=== PATIENT | male | born 1975 | race Hispanic/Latino ===

== ENCOUNTER 2017-04-19 19:27 | Inpatient (IN) | payer OTHER ==
[2017-04-19] MEDS ORDERED: Sodium Chloride 0.9% 500 ML IV STA (19:57)
[2017-04-19] MEDS ORDERED: Sodium Chloride 0.9% 1,000 ML IV SCH (20:00)
[2017-04-19] MEDS ORDERED: Insulin Regular 1 UNITS/0.01 ML ML IVP STA (20:26)
[2017-04-19 20:39] LABS: MEAN CELL VOLUME 95.9 fl (80.0-105.0); MEAN CORPUSCULAR HEMOGLOBIN 30.5 pg (25.0-35.0); MEAN CORPUSCULAR HGB CONC 31.8 g/dl (31.0-37.0); MEAN PLATELET VOLUME 9.4 fl (7.0-11.0); RBC 2.2 10^6/uL (3.5-6.1); RED CELL DISTRIBUTION WIDTH 13.6 % (11.5-14.5); WHITE BLOOD COUNT 9.7 10^3/ul (4.5-11.0)
[2017-04-19 20:43] LABS: VENOUS BLOOD GAS BASE EXCESS -23.8 mmol/L (0.0-2.0); VENOUS BLOOD GAS PO2 65 mm/Hg (30-55)
[2017-04-19 20:47] LABS: VENOUS BLOOD PH 7.03 (7.32-7.43)
[2017-04-19 20:50] LABS: HEMOGLOBIN 6.7 g/dL (14.0-18.0)
[2017-04-19 21:01] LABS: PROTHROMBIN TIME 11.9 SECONDS (9.4-12.5)
[2017-04-19 21:02] LABS: INR 1.04 (0.93-1.08)
[2017-04-19 21:03] LABS: TROPONIN I < 0.01 ng/mL
[2017-04-19 21:13] LABS: ALB/GLOB RATIO 1.1 (1.1-1.8); ALBUMIN 2.6 g/dL (3.0-4.8); ALT/SGPT 21 U/L (7-56); AST/SGOT 18 U/L (17-59); BLOOD UREA NITROGEN 61 mg/dL (7-21); CALCIUM 9.2 mg/dL (8.4-10.5); GFR AFRICAN-AMERICAN 47; GFR NON-AFRICAN AMERICAN 39; MAGNESIUM 2.5 mg/dL (1.7-2.2)
--- NOTE | 2017-04-19 21:22 | ED PDOC ---
Arrival/HPI - General Chief Complaint: High Blood Sugar Time Seen by Provider: 04/19/17 19:35 Historian: Patient - History of Present Illness Narrative History of Present Illness (Text): 04/19/17 19:58 Jhony Apodaca is a 41 year old male, whose past medical history includes IDDM, alcohol abuse, and GI bleed, who presents to the ED complaining of generalized weakness and dry mouth. Patient was recently discharged from [facility] following treatment for hyperglycemia and possible GI bleed. Patient also reports associated shortness of breath. Patient denies any chest pain, fever, chills, abdominal pain, nausea, vomiting, diarrhea, or any other complaints. Symptom Onset: Gradual Symptom Course: Unchanged Activities at Onset: Light Context: Home Past Medical History - Provider Review Nursing Documentation Reviewed: Yes - Cardiac Hx Cardiac Disorders: No - Pulmonary Hx Respiratory Disorders: No - Neurological Hx Neurological Disorder: No - HEENT Hx HEENT Disorder: No - Renal Hx Renal Disorder: No - Endocrine/Metabolic Hx Diabetes Mellitus Type 2: Yes - Hematological/Oncological Hx Anemia: Yes - Integumentary Hx Dermatological Disorder: No - Musculoskeletal/Rheumatological Hx Musculoskeletal Disorders: No - Gastrointestinal Other/Comment: abnormal liver testing - Genitourinary/Gynecological Hx Genitourinary Disorders: No - Psychiatric Hx Psychophysiologic Disorder: No Hx Substance Use: No - Anesthesia Hx Anesthesia: Yes Family/Social History - Physician Review Nursing Documentation Reviewed: Yes Family/Social History: Unknown Family HX Smoking Status: Never Smoked Hx Alcohol Use: No Hx Substance Use: No Allergies/Home Meds Allergies/Adverse Reactions: Allergies No Known Allergies Allergy (Verified 04/19/17 19:42) Home Medications: Home Meds Medication Instructions Recorded Confirmed Atorvastatin [Lipitor] 40 mg PO HS 04/19/17 04/19/17 Fluconazole [Diflucan] 100 mg PO DAILY 04/19/17 04/19/17 Insulin Lispro [Humalog (Insulin 0 unit SQ DAILY 04/19/17 04/19/17 Lispro)] Latanoprost 0.005% Opht [XALATAN 1 drp OP HS 04/19/17 04/19/17 2.5 Ml] amLODIPine [Norvasc] 10 mg PO DAILY 04/19/17 04/19/17 Review of Systems - Physician Review All systems were reviewed & negative as marked: Yes - Review of Systems Constitutional: Other (+generalized weakness). absent: Fevers Eyes: Normal ENT: Normal Respiratory: SOB. absent: Cough Cardiovascular: Normal. absent: Chest Pain Gastrointestinal: Normal. absent: Abdominal Pain, Diarrhea, Nausea, Vomiting Genitourinary Male: Normal. absent: Dysuria, Frequency, Hematuria, Urinary Output Changes Musculoskeletal: Normal. absent: Back Pain, Neck Pain Skin: Normal. absent: Rash Neurological: Normal. absent: Headache, Dizziness Endocrine: Other (+dry mouth) Hemo/Lymphatic: Normal Psychiatric: Normal Physical Exam Vital Signs Reviewed: Yes Vital Signs Temp Pulse Resp BP Pulse Ox 04/19/17 23:41 98 F 110 H 27 H 119/60 04/19/17 23:30 114 H 24 99/58 L 100 04/19/17 23:23 111 H 20 111/60 100 04/19/17 23:21 116 H 21 111/60 100 04/19/17 23:15 117 H 22 93/57 L 100 04/19/17 23:00 121 H 20 103/64 100 04/19/17 22:56 97.3 F L 119 H 20 107/61 04/19/17 22:55 119 H 19 107/61 100 04/19/17 22:45 116 H 19 109/63 100 04/19/17 22:36 96.1 F L 116 H 20 105/28 L 04/19/17 22:30 118 H 22 105/28 L 100 04/19/17 22:15 118 H 20 100/78 100 04/19/17 22:00 115 H 22 112/76 100 04/19/17 21:45 115 H 23 118/79 100 04/19/17 19:46 97.4 F L 110 H 20 90/52 L 100 04/19/17 19:42 97.4 F L 110 H 20 90/52 L 100 Temperature: Afebrile Blood Pressure: Hypotensive Pulse: Tachycardic Respiratory Rate: Normal Appearance: Positive for: Non-Toxic, Comfortable, Cachectic (Emaciated), Other ( Pale-appearing) Pain Distress: None Mental Status: Positive for: Alert and Oriented X 3 Finger Stick Blood Glucose: 750 - Systems Exam Head: Present: Atraumatic, Normocephalic Pupils: Present: PERRL Extroacular Muscles: Present: EOMI Conjunctiva: Present: Other (Pale conjunctiva) Mouth: Present: Dry Neck: Present: Normal Range of Motion. No: Meningeal Signs, MIDLINE TENDERNESS , Paraspinal Tenderness Respiratory/Chest: Present: Clear to Auscultation, Good Air Exchange. No: Respiratory Distress, Accessory Muscle Use Cardiovascular: Present: Normal S1, S2, Tachycardic. No: Murmurs Abdomen: Present: Normal Bowel Sounds. No: Tenderness, Distention, Peritoneal Signs Rectal: Present: Other (Pt refused rectal exam) Back: Present: Normal Inspection. No: CVA Tenderness, Midline Tenderness, Paraspinal Tenderness Upper Extremity: Present: Normal Inspection. No: Cyanosis, Edema Lower Extremity: Present: Normal Inspection. No: Edema Neurological: Present: GCS=15, CN II-XII Intact, Speech Normal Skin: Present: Warm, Dry, Pale. No: Rashes Psychiatric: Present: Alert, Oriented x 3, Normal Insight, Normal Concentration Medical Decision Making ED Course and Treatment: 04/19/17 19:58 Impression: 41 year old male complaining of generalized weakness, dry mouth, and shortness of breath. Differential Diagnosis included but are not limited to: DKA vs. GI bleed vs. occult cancer Plan: -- EKG -- CXR -- Labs, cardiac enzymes, VBG -- IV fluids -- Reassess and disposition Prior Visits: Notes and results from previous visits were reviewed. Progress Notes: Pt symptoms consistent with DKA. Labs noted, pt with elevated blood sugar, acidotic. IV insulin drip started. Pt also noted t be anemic. Pt blood type, cross, and matched for anticipated transfusion. 04/19/17 20:35 Reviewed EKG, sinus tachycardia at 106 bpm. Non-specific ST/T wave changes. 04/19/17 21:27 Pt refused rectal exam. 04/19/17 21:[address] Vernon, fabrication welder, who is aware and agrees with plan. Pt will be admitted to ICU for DKA and anemia under the hospitalist service. - Critical Care Critical Care Minutes: 30 minutes - Lab Interpretations Lab Results: 04/19/17 20:30 04/19/17 20:30 Lab Results 04/19/17 20:48: Blood Type Confirm O NEGATIVE 04/19/17 20:30: pO2 65 H, VBG pH 7.03 L*, VBG pCO2 21.0 L, VBG HCO3 5.5 L, VBG Total CO2 6.1 L, VBG O2 Sat (Calc) 92.8 H, VBG Base Excess -23.8 L, VBG Potassium 6.2 H*, Sodium 126.0 L, Chloride 87.0 L, Glucose > 750 H*, Lactate 4.0 H*, FiO2 21.0, Venous Blood Potassium 6.2 H* 04/19/17 20:30: WBC 9.7, RBC 2.20 L, Hgb 6.7 L*, Hct 21.1 L, MCV 95.9, MCH 30.5 , MCHC 31.8, RDW 13.6, Plt Count 549 H, MPV 9.4 04/19/17 20:30: Sodium 127 L, Chloride 87 L, Potassium 6.1 H*, Carbon Dioxide 8 L, Anion Gap 38 H, BUN 61 H, Creatinine 1.9 H, Est GFR ( Amer) 47, Est GFR (Non-Af Amer) 39, Random Glucose 936 H*, Calcium 9.2, Phosphorus 7.9 H, Magnesium 2.5 H, Total Bilirubin 0.2, AST 18, ALT 21, Alkaline Phosphatase 96, Lactate Dehydrogenase 301 L, Total Creatine Kinase 38, Troponin I < 0.01, Total Protein 5.0 L, Albumin 2.6 L, Globulin 2.4, Albumin/Globulin Ratio 1.1 04/19/17 20:30: PT 11.9, INR 1.04, APTT 27.0 04/19/17 20:24: Blood Type O NEGATIVE, Antibody Screen Negative, Crossmatch See Detail, BBK History Checked No verified bt I have reviewed the lab results: Yes - RAD Interpretation Radiology Orders: 04/19/17 19:58 CHEST PORTABLE [RAD] Stat - EKG Interpretation Interpreted by ED Physician: Yes Type: 12 lead EKG - Medication Orders Current Medication Orders: Acetaminophen (Tylenol 325 Mg Supp) 325 mg RC Q6 PRN PRN Reason: Fever >100.4 F Insulin Human Regular 100 (units/ Sodium Chloride) 100 mls @ 10 mls/hr IV .Q10H PRN; Protocol; 10 UNITS/HR PRN Reason: TITRATE PER MD ORDER Last Titration: 04/20/17 00:25 Dose: 12 units/hr, 12 mls/hr Titration Intervention Document 04/20/17 00:25 FM (Rec: 04/20/17 00:25 FM [id number]-PC) Titration Intake Container Volume 70 Titration Dosing Titration Dose 12 IV Rate 12 Intake/Decrease Started Sodium Chloride (Sodium Chloride 0.9%) 1,000 mls @ 150 mls/hr IV .Q6H40M [facility] Last Admin: 04/19/17 22:24 Dose: 150 mls/hr eMAR Start Stop Document 04/19/17 22:24 HI (Rec: 04/19/17 22:24 HI [id number]) Intravenous Solution Start Date 04/19/17 Start Time 22:24 Pantoprazole Sodium (Protonix 40mg Ivpb) 40 mg in 100 mls @ 20 mls/hr IVPB .Q5H [facility] Last Admin: 04/20/17 01:17 Dose: 20 mls/hr eMAR Start Stop Document 04/20/17 01:17 FM (Rec: 04/20/17 01:17 FM ADMIN-PC) Intravenous Solution Start Date 04/20/17 Start Time 01:17 End Date 04/20/17 Ceftriaxone Sodium (Rocephin 2 Gm Ivpb) 2 gm in 100 mls @ 100 mls/hr IVPB DAILY GABI PRN Reason: Protocol Ondansetron HCl (Zofran Inj) 4 mg IVP Q4H PRN PRN Reason: Nausea/Vomiting Discontinued Medications Lactated Ringer's 2,177.25 ml/ (IV SUPPLIES) 2,177.25 mls @ 4,354.5 mls/hr IV STAT STA PRN Reason: 60 ML/KG/HR Stop: 04/19/17 20:19 Last Admin: 04/19/17 21:02 Dose: 4,354.5 mls/hr eMAR Start Stop Document 04/19/17 21:02 HI (Rec: 04/19/17 21:02 HI [id number]) Intravenous Solution Start Date 04/19/17 Start Time 20:30 Insulin Human Regular (Humulin R) 10 units IVP STAT STA Stop: 04/19/17 20:27 Last Admin: 04/19/17 21:02 Dose: 10 units MAR Blood Glucose Document 04/19/17 21:02 HI (Rec: 04/19/17 21:02 HI [id number]) Blood Glucose Finger Stick Blood Glucose (70-120) 750 IVP Administration Document 04/19/17 21:02 HI (Rec: 04/19/17 21:02 HI [id number]) Charges for Administration # of IVP Administrations 1 Pantoprazole Sodium (Protonix Inj) 40 mg IVP ONCE STA Stop: 04/19/17 22:00 Last Admin: 04/19/17 22:27 Dose: 40 mg IVP Administration Document 04/19/17 22:27 HI (Rec: 04/19/17 22:27 HI [id number]) Charges for Administration # of IVP Administrations 1 - Scribe Statement The provider has reviewed the documentation as recorded by the Scribe Frances Palma All medical record entries made by the Scribe were at my direction and personally dictated by me. I have reviewed the chart and agree that the record accurately reflects my personal performance of the history, physical exam, medical decision making, and the department course for this patient. I have also personally directed, reviewed, and agree with the discharge instructions and disposition. Disposition/Present on Arrival - Present on Arrival Any Indicators Present on Arrival: No History of DVT/PE: No History of Uncontrolled Diabetes: No Urinary Catheter: No History of Decub. Ulcer: No History Surgical Site Infection Following: None - Disposition Have Diagnosis and Disposition been Completed?: Yes Diagnosis: Diabetic ketoacidosis, Anemia Disposition: HOSPITALIZED Disposition Time: 21:59 Patient Plan: Admission Patient Problems: Current Active Problems Problem Status Onset Anemia Acute Diabetic ketoacidosis Acute Condition: GUARDED
[2017-04-19] MEDS: Insulin Regular 100 UNITS in Sodium Chloride 0.9% 99 ML IV PRN (21:30)
[2017-04-19] MEDS: Sodium Chloride 0.9% 1,000 ML IV SCH (22:24)
--- NOTE | 2017-04-20 00:41 | CP.PCM.HP ---
<Adebayo Riggins - Last Filed: 04/20/17 00:47> History of Present Illness - History of Present Illness History of Present Illness: Melchor Riggins PGY1 H&P CC: weakness and n/v HPI: Patient is a 41 year old male with past medical history of DM1, previous episodes of DKA, HTN, HLD, gastritis, recent dx of osteomyelitis and GI bleed who presents to ED via ambulance complaining of general weakness, fatigue, nausea, vomiting. Patient reports that over past 12 hours began experiencing nausea and vomiting. Patient describes vomiting/coughing up dark coffee ground like material. Of note patient was recently discharged from [facility] after being treated for DKA, osteomyelitis, gastritis and GI bleed. While at [facility] patient had PICC line placed for OM of right foot and started on rocephin. Patient also reports having upper endoscopy showing mass? and striations or markings in the esophagus. Patient denies further workup. Patient denies sick contacts, denies fever, chest pain, shortness of breath, abdominal pain, numbness, weakness. Patient reports poor oral intake since discharge from [facility] on 04/15. Patient reports compliance with insulin regiment and medications since discharge. Of note patient indicates constipation for past 10 days with recent bowel movement in past 24 hours described as black stool. PMH: DM1, DKA, HTN, HLD, Glaucoma, Gastritis, OM, GI bleed PSH: Toe amputation, appendectomy FMH: Father @ 43 due to [place], Brother - stroke Sochx: Tobacco: Former, 20 pack year history, ETOH: Daily, ID: Cocaine, denies IVDA hx PMD: None ALL: NKDA Meds: MAR reviewed Present on Admission - Present on Admission Any Indicators Present on Admission: No Review of Systems - Review of Systems Review of Systems: as mentioned in HPI Past Patient History - Past Social History Smoking Status: Former Smoker (20 pack year history) Alcohol: Occasional Drugs: Cocaine - CARDIAC Hx Cardiac Disorders: No - PULMONARY Hx Respiratory Disorders: No - NEUROLOGICAL Hx Neurological Disorder: No - HEENT Hx HEENT Problems: No - RENAL Hx Chronic Kidney Disease: No - ENDOCRINE/METABOLIC Hx Diabetes Mellitus Type 2: Yes - HEMATOLOGICAL/ONCOLOGICAL Hx Anemia: Yes - INTEGUMENTARY Hx Dermatological Problems: No - MUSCULOSKELETAL/RHEUMATOLOGICAL Hx Musculoskeletal Disorders: No - GASTROINTESTINAL Other/Comment: abnormal liver testing - GENITOURINARY/GYNECOLOGICAL Hx Genitourinary Disorders: No - PSYCHIATRIC Hx Psychophysiologic Disorder: No Hx Substance Use: No - SURGICAL HISTORY Hx Surgeries: Yes - ANESTHESIA Hx Anesthesia: Yes Meds Allergies/Adverse Reactions: Allergies Allergy/AdvReac Type Severity Reaction Status Date / Time No Known Allergies Allergy Verified 04/19/17 19:42 Physical Exam - Constitutional Additional comments: Appears older than stated age, no acute distress, curled up laying in bed - Head Exam Head Exam: ATRAUMATIC, NORMAL INSPECTION, NORMOCEPHALIC - Eye Exam Eye Exam: EOMI, PERRL, Scleral icterus (mild) Additional comments: pale conjunctivae - ENT Exam ENT Exam: Mucous Membranes Dry - Respiratory Exam Respiratory Exam: Clear to Auscultation Bilateral, NORMAL BREATHING PATTERN. absent: Rhonchi, Wheezes - Cardiovascular Exam Cardiovascular Exam: Tachycardia, +S1, +S2. absent: Rubs, Systolic Murmur - GI/Abdominal Exam GI & Abdominal Exam: Normal Bowel Sounds, Soft. absent: Distended, Firm, Guarding - Rectal Exam Rectal Exam: Deferred - Extremities Exam Extremities exam: Positive for: normal inspection, pedal pulses present. Negative for: pedal edema Additional comments: right lateral foot with 1 x 1.5 cm wound, no purulent drainage, no warmth or eythema surrounding wound noted - Back Exam Back exam: NORMAL INSPECTION. absent: CVA tenderness (L), CVA tenderness (R) - Neurological Exam Neurological exam: Alert, Oriented x3 Additional comments: able to follow simple commands, able to move all extremities past midline, motor and sensory grossly intact - Psychiatric Exam Psychiatric exam: Normal Affect, Normal Mood - Skin Skin Exam: Dry, Intact, Warm Results - Vital Signs Recent Vital Signs: Last Vital Signs Temp 98 F 04/19/17 23:41 Pulse 110 H 04/19/17 23:41 Resp 27 H 04/19/17 23:41 BP 119/60 04/19/17 23:41 Pulse Ox 100 04/19/17 23:30 - Labs Result Diagrams: 04/19/17 20:30 04/19/17 20:30 Labs: Laboratory Results - last 24 hr 04/19/17 04/19/17 04/20/17 21:28 23:06 00:14 POC Glucose (mg/dL) > 500 H* > 500 H* 491 H* Assessment & Plan - Assessment and Plan (Free Text) Assessment: 41 year old male with past medical history of DM1, previous episodes of DKA, HTN , HLD, gastritis, recent dx of osteomyelitis and GI bleed who presents via ambulance to ED complaining of fatigue, weakness, nausea found to be in DKA withe elevated AG of 32 and severe anemia likely secondary to upper GI bleed suspected to be secondary to GI mass. Patient is placed on insulin and protonix gtt and receiving blood transfusion and will be admitted to ICU for further medical management. Plan: Neuro AAOx3 Continue to monitor Cardiac Tachycardia - Likely 2/2 severe anemia vs. volume depletion vs. response to DKA vs. infectious - EKG showing sinus tachycardia - Continue to monitor - IVF - Transfusion 1 unit pRBC for total of 2 units - CBC in AM Pulm - Stable - NC goal O2 >92% GI Hx of GI mass?, suspect upper GI bleed source - recent hx of [facility] admission with endoscopy showing gastric mass, request records - GI consult, appreciate recs - Protonix gtt - transfuse 1 unit pRBC - monitor H/H FOBT Zofran 4mg Prn NPO Renal Hyperkalemia - likely 2/2 DKA - IVF resucitation Hypovolemic Hyponatremia - IVF NS @150 mL/HR Monitor lytes Replace as necessary Strict I/O Endo DKA - DM1, AG of 32 - NPO, IVF - insulin gtt, titrate - BMP Q4H evaluate AG ID Hx of Osteomyelitis - Continue rocephin 2gm Q24H - ID consult, appreciate recs - Plain marielena Right foot evaluate OM UA Blood and urine culture MSK amputation of toe Right heel OM wound - bandage in place with minimal blood - absent signs of infection Heme Monitor H/H Transfuse 1 unit of pRBC for total of 2 units DVT ppx: SCD due to suspected GI bleed GI ppx: Protonix gtt Case and plan discussed and reviewed with attending - Date & Time Date: 04/19/17 Time: 23:15 <Doug Vernon - Last Filed: 04/20/17 05:41> Results - Vital Signs Recent Vital Signs: Last Vital Signs Temp 98.4 F 04/20/17 04:10 Pulse 98 H 04/20/17 04:10 Resp 16 04/20/17 04:10 BP 104/50 L 04/20/17 04:10 Pulse Ox 100 04/20/17 03:00 - Labs Result Diagrams: 04/19/17 20:30 04/20/17 00:35 Labs: Laboratory Results - last 24 hr 04/19/17 04/19/17 04/20/17 21:28 23:06 00:14 Sodium Potassium Chloride Carbon Dioxide Anion Gap BUN Creatinine Est GFR ( Amer) Est GFR (Non-Af Amer) POC Glucose (mg/dL) > 500 H* > 500 H* 491 H* Random Glucose Calcium 04/20/17 04/20/17 04/20/17 00:35 01:05 02:20 Sodium 132 Potassium 4.8 Chloride 98 Carbon Dioxide 10 L D Anion Gap 29 H BUN 65 H Creatinine 1.5 Est GFR ( Amer) > 60 Est GFR (Non-Af Amer) 51 POC Glucose (mg/dL) 390 H 391 H Random Glucose 620 H* D Calcium 8.6 04/20/17 04/20/17 04/20/17 03:04 04:21 05:16 Sodium Potassium Chloride Carbon Dioxide Anion Gap BUN Creatinine Est GFR ( Amer) Est GFR (Non-Af Amer) POC Glucose (mg/dL) 352 H 295 H 247 H Random Glucose Calcium Attending/Attestation - Attestation I have personally seen and examined this patient.: Yes I have fully participated in the care of the patient.: Yes I have reviewed all pertinent clinical information: Yes Notes (Text): 04/20/17 05:41 I agree with the above mentioned note and exam by the resident with the addition /exception of the followin41 y/o male with a PMHx IDDM, Anemia, UGIB, LE osteomyelitis with h/o 5th metatarsal amputation 09/2016, Etoh abuse presents to the ED with the complaints of lethargy and fatigue for the past few days. Patient was recently hospitalized at [facility] where his sister states he was admitted for DKA and also had EGD's done showing no active bleeding but showing a "mass" in his stomach. Unclear whether patient also has esophageal varices or not as they do not have the reports with them and we are unable to access [facility] records from our facility. Patient is being admitted to the ICU for worsened Anemia (hgb 9.0 on 04/15/17 and 6.7 today) as well as being in active DKA with osteomyelitis of his foot. IVF hydration/insulin drip/NPO/c/w IV Antibiotics/stool for occult blood/ protonix drip/PRBC transfusion/ID consult Case discussed with Dr. Linares in the ED all labs and imaging available to me thus far has been reviewed total time of care: 45 minutes
[2017-04-20] MEDS: Pantoprazole 40mg/100mL NS 40 MG/100 ML BAG IVPB SCH ×5 (01:17→21:44)
[2017-04-20 02:03] LABS: BLOOD UREA NITROGEN 65 mg/dL (7-21); CALCIUM 8.6 mg/dL (8.4-10.5); GFR AFRICAN-AMERICAN > 60; GFR NON-AFRICAN AMERICAN 51
[2017-04-20] MEDS ORDERED: Influenza Vaccine 60 mcg/0.5 mL SYR (4YR UP) IM ONE (03:56)
[2017-04-20] MEDS ORDERED: Pneumococcal 23-Valent Vaccine IM ONE (03:56)
[2017-04-20 03:57] VITALS: BMI 18.1
[2017-04-20] MEDS: Sodium Chloride 0.9% 1,000 ML IV SCH (05:43)
[2017-04-20 06:33] LABS: BASO # 0.02 K/mm3 (0.0-2.0); BASO % 0.2 % (0.0-3.0); EOS % 0.4 % (1.5-5.0); GRAN # 4.36 (1.4-6.5); GRAN % 54.4 % (50.0-68.0); HEMOGLOBIN 7.8 g/dL (14.0-18.0); LYMPH # 2.3 (1.2-3.4); LYMPH % 28.7 % (22.0-35.0); MEAN CORPUSCULAR HEMOGLOBIN 29.9 pg (25.0-35.0); MEAN PLATELET VOLUME 8.5 fl (7.0-11.0); MONO # 1.3 (0.1-0.6); MONO % 16.3 % (1.0-6.0); RBC 2.61 10^6/uL (3.5-6.1); RED CELL DISTRIBUTION WIDTH 13.4 % (11.5-14.5)
[2017-04-20 06:41] LABS: MEAN CELL VOLUME 85.4 fl (80.0-105.0)
[2017-04-20] MEDS: Insulin Regular 100 UNITS in Sodium Chloride 0.9% 99 ML IV PRN (06:57)
[2017-04-20 07:17] LABS: ALBUMIN 2.3 g/dL (3.0-4.8); ALT/SGPT 19 U/L (7-56); AST/SGOT 24 U/L (17-59); BLOOD UREA NITROGEN 57 mg/dL (7-21); CALCIUM 8.9 mg/dL (8.4-10.5); GFR AFRICAN-AMERICAN > 60; GFR NON-AFRICAN AMERICAN > 60; VENOUS BLOOD GAS BASE EXCESS -5.7 mmol/L (0.0-2.0); VENOUS BLOOD GAS PO2 50 mm/Hg (30-55); VENOUS BLOOD PH 7.29 (7.32-7.43)
[2017-04-20 07:35] LABS: PH,URINE 5.5 (4.7-8.0); URINE BILIRUBIN NEGATIVE (NEGATIVE); URINE BLOOD NEGATIVE (NEGATIVE); URINE GLUCOSE (UA) >=1000 mg/dL (NEGATIVE); URINE LEUKOCYTE ESTERASE NEGATIVE Leu/uL (NEGATIVE); URINE NITRATE NEGATIVE (NEGATIVE); URINE PROTEIN NEGATIVE mg/dL (<30 mg/dL); URINE UROBILINOGEN 0.2 E.U./dL (<1 E.U./dL)
[2017-04-20 07:40] LABS: URINE APPEARANCE CLEAR (CLEAR); URINE COLOR LIGHT YELLOW (YELLOW)
[2017-04-20] MEDS ORDERED: Insulin Detemir 100 units/ml Vial (Levemir) SC STA ×2 (07:51→08:07)
--- NOTE | 2017-04-20 08:03 | CP.CCUPN ---
<DesmondKen - Last Filed: 04/20/17 11:52> CCU Subjective - Physician Review Subjective (Free Text): Ken Logan PGY1 ICU Note for Dr. Hernandez Pt was seen and evaluated at bedside. Pt only complains of chronic weakness, which has improved since coming to the hospital. Pt denies CP, SOB, abdominal pain, N/V/D, hematemesis, hematochezia. Upon further questioning, pt reports that he described one episode of coughing up a black spot on [his] hand yesterday. Denies seeing any blood in vomitus. Pt also reports that he has been drinking a 6 pack of beer for the past 20 years, but quit 8 months ago. He admits to a 20 Pack year history, but quit smoking 4 months ago. He admits to marijuana and cocaine use. Last smoked cocaine, accidentally, 2 weeks ago. Denies IVDA. CCU Objective - Vital Signs / Intake & Output Vital Signs (Last 4 hours): Vital Signs Temp Pulse Resp BP Pulse Ox 04/20/17 07:45 101 H 19 120/71 100 04/20/17 07:40 100 H 16 100 04/20/17 07:30 100 H 16 157/66 H 100 04/20/17 07:20 98 H 16 100 04/20/17 07:15 100 H 21 125/77 100 04/20/17 07:10 100 H 16 100 04/20/17 07:00 101 H 18 96/72 L 100 04/20/17 06:50 101 H 18 100 04/20/17 06:45 100 H 15 106/62 100 04/20/17 06:40 98 H 15 100 04/20/17 06:30 103 H 18 113/50 L 100 04/20/17 06:20 104 H 18 100 04/20/17 06:15 106 H 12 99/61 L 100 04/20/17 06:10 106 H 16 100 04/20/17 06:00 103 H 21 112/53 L 100 04/20/17 05:50 102 H 22 100 04/20/17 05:45 102 H 17 98/52 L 100 04/20/17 05:40 99 H 16 100 04/20/17 05:30 103 H 16 99/58 L 100 04/20/17 05:20 101 H 16 100 04/20/17 05:15 103 H 16 108/58 L 100 04/20/17 05:10 101 H 16 100 04/20/17 05:00 98.2 F 104 H 19 120/66 100 04/20/17 04:50 98 H 14 100 04/20/17 04:45 100 H 17 110/66 100 04/20/17 04:40 100 H 15 100 04/20/17 04:30 101 H 17 105/63 100 04/20/17 04:20 99 H 13 100 04/20/17 04:15 101 H 21 112/69 100 04/20/17 04:10 98.4 F 98 H 15 104/50 L 100 Intake and Output (Last 8hrs): Intake & Output 04/19/17 04/20/17 04/20/17 22:59 06:59 14:59 Intake Total 0 1757 0 Output Total 1700 Balance 0 57 0 Weight 144 lb 12.8 oz Intake: IV 432 0 Insulin 70 Left Wrist 200 Right Upper arm 120 Oral 0 Tube Feeding 0 TPN/PPN 0 Blood Product 0 1300 Red Blood Cells Cpd As1 325 Lr Unit [id number] Red Blood Cells Cpd As1 0 325 Lr Unit [id number] Lipid 0 Albumin 0 Other 25 Output: Urine 1700 Urine, Voided 1700 Stool 0 Urine/Stool Mix 0 Emesis 0 Oral Regurgitation 0 Other 0 Other: Voiding Method Urinal # Voids Urine, Voided 2 # Bowel Movements 0 - Physical Exam Head: Positive for: Atraumatic, Normocephalic Pupils: Positive for: PERRL Extroacular Muscles: Positive for: EOMI Conjunctiva: Positive for: Other (Pale conjunctiva) Mouth: Positive for: Moist Mucous Membranes Neck: Positive for: Normal Range of Motion. Negative for: Meningeal Signs, MIDLINE TENDERNESS, Paraspinal Tenderness Respiratory/Chest: Positive for: Clear to Auscultation, Good Air Exchange. Negative for: Respiratory Distress, Accessory Muscle Use, Wheezes, Rales, Rhonchi Cardiovascular: Positive for: Normal S1, S2, Tachycardic. Negative for: Murmurs Abdomen: Positive for: Normal Bowel Sounds. Negative for: Tenderness, Distention, Peritoneal Signs Rectal: Positive for: Other (Pt refused rectal exam) Back: Positive for: Normal Inspection. Negative for: CVA Tenderness, Midline Tenderness, Paraspinal Tenderness Upper Extremity: Positive for: Normal Inspection. Negative for: Cyanosis, Edema Lower Extremity: Positive for: Normal Inspection. Negative for: Edema Neurological: Positive for: GCS=15, CN II-XII Intact, Speech Normal Skin: Positive for: Warm, Dry, Pale. Negative for: Rashes Psychiatric: Positive for: Alert, Oriented x 3, Normal Insight, Normal Concentration - Medications Active Medications: Active Medications Generic Name Dose Route Start Last Admin Trade Name Freq PRN Reason Stop Dose Admin Acetaminophen 325 mg 04/19/17 23:42 Tylenol 325 Mg Supp RC Q6 PRN Fever >100.4 F Insulin Human Regular 100 100 mls @ 10 mls/hr 04/19/17 20:27 04/20/17 07:04 units/ Sodium Chloride IV 4 units/hr .Q10H PRN 4 mls/hr TITRATE PER MD ORDER Titration Protocol 10 UNITS/HR Sodium Chloride 1,000 mls @ 150 mls/hr 04/19/17 22:30 04/20/17 05:43 Sodium Chloride 0.9% IV 150 mls/hr .Q6H40M GABI Administration Pantoprazole Sodium 40 mg in 100 mls @ 20 mls/hr 04/19/17 23:45 04/20/17 06: 11 Protonix 40mg Ivpb IVPB 20 mls/hr .Q5H GABI Administration Ceftriaxone Sodium 2 gm in 100 mls @ 100 mls/hr 04/20/17 10:00 Rocephin 2 Gm Ivpb IVPB DAILY GABI Protocol Insulin Human Regular 10 units 04/20/17 11:30 Humulin R SC AC [facility] Ondansetron HCl 4 mg 04/20/17 07:54 Zofran Inj IVP Q4H PRN Nausea/Vomiting - Patient Studies Lab Studies: Lab Studies 04/20/17 04/20/17 04/20/17 Range/Units 07:02 06:34 06:10 WBC (4.5-11.0) 10^3/ul RBC (3.5-6.1) 10^6/uL Hgb (14.0-18.0) g/dL Hct (42.0-52.0) % MCV (80.0-105.0) fl MCH (25.0-35.0) pg MCHC (31.0-37.0) g/dl RDW (11.5-14.5) % Plt Count (120.0-450.0) 10^3/uL MPV (7.0-11.0) fl Gran % (50.0-68.0) % Lymph % (Auto) (22.0-35.0) % [place] % (Auto) (1.0-6.0) % Eos % (Auto) (1.5-5.0) % Baso % (Auto) (0.0-3.0) % Gran # (1.4-6.5) Lymph # (Auto) (1.2-3.4) [place] # (Auto) (0.1-0.6) Eos # (Auto) (0.0-0.7) Baso # (Auto) (0.0-2.0) K/mm3 pO2 (30-55) mm/Hg VBG pH (7.32-7.43) VBG pCO2 (40-60) VBG HCO3 (21-28) mmol/l VBG Total CO2 (22-28) mmol.L VBG O2 Sat (Calc) (40-65) % VBG Base Excess (0.0-2.0) mmol/L VBG Potassium (3.6-5.2) mmol/L Glucose (75-110) mg/dl Lactate (0.7-2.1) mmol/L FiO2 % Sodium 139 (132-148) mmol/L Potassium 4.3 (3.6-5.0) mmol/L Chloride 108 H (98-107) mmol/L Carbon Dioxide 22 (21-33) mmol/L Anion Gap 14 (10-20) BUN 57 H (7-21) mg/dL Creatinine 1.1 (0.8-1.5) mg/dl Est GFR ( Amer) > 60 Est GFR (Non-Af Amer) > 60 POC Glucose (mg/dL) 213 H 224 H (65-110) mg/dL Random Glucose 263 H (70-110) mg/dL Calcium 8.9 (8.4-10.5) mg/dL Total Bilirubin 0.3 (0.2-1.3) mg/dL AST 24 (17-59) U/L ALT 19 (7-56) U/L Alkaline Phosphatase 56 (38-126) U/L Total Protein 4.7 L (5.8-8.3) g/dL Albumin 2.3 L (3.0-4.8) g/dL Globulin 2.4 gm/dL Albumin/Globulin Ratio 1.0 L (1.1-1.8) Venous Blood Potassium (3.6-5.2) mmol/L Urine Color (YELLOW) Urine Appearance (CLEAR) Urine pH (4.7-8.0) Ur Specific [place] (1.005-1.035) Urine Protein (<30 mg/dL) mg/dL Urine Glucose (UA) (NEGATIVE) mg/dL Urine Ketones (NEGATIVE) mg/dL Urine Blood (NEGATIVE) Urine Nitrate (NEGATIVE) Urine Bilirubin (NEGATIVE) Urine Urobilinogen (<1 E.U./dL) E.U./dL Ur Leukocyte Esterase (NEGATIVE) Abigail/uL 04/20/17 04/20/17 04/20/17 Range/Units 06:10 06:10 06:00 WBC 8.0 (4.5-11.0) 10^3/ul RBC 2.61 L (3.5-6.1) 10^6/uL Hgb 7.8 L (14.0-18.0) g/dL Hct 22.3 L (42.0-52.0) % MCV 85.4 D (80.0-105.0) fl MCH 29.9 (25.0-35.0) pg MCHC 35.0 (31.0-37.0) g/dl RDW 13.4 (11.5-14.5) % Plt Count 385 (120.0-450.0) 10^3/uL MPV 8.5 (7.0-11.0) fl Gran % 54.4 (50.0-68.0) % Lymph % (Auto) 28.7 (22.0-35.0) % [place] % (Auto) 16.3 H (1.0-6.0) % Eos % (Auto) 0.4 L (1.5-5.0) % Baso % (Auto) 0.2 (0.0-3.0) % Gran # 4.36 (1.4-6.5) Lymph # (Auto) 2.3 (1.2-3.4) [place] # (Auto) 1.3 H (0.1-0.6) Eos # (Auto) 0.0 (0.0-0.7) Baso # (Auto) 0.02 (0.0-2.0) K/mm3 pO2 50 (30-55) mm/Hg VBG pH 7.29 L (7.32-7.43) VBG pCO2 43.0 (40-60) VBG HCO3 20.7 L (21-28) mmol/l VBG Total CO2 22.0 (22-28) mmol.L VBG O2 Sat (Calc) 92.2 H (40-65) % VBG Base Excess -5.7 L (0.0-2.0) mmol/L VBG Potassium 4.5 (3.6-5.2) mmol/L Glucose 277 H (75-110) mg/dl Lactate 0.9 (0.7-2.1) mmol/L FiO2 21.0 % Sodium 137.0 (132-148) mmol/L Potassium (3.6-5.0) mmol/L Chloride 111.0 H (98-107) mmol/L Carbon Dioxide (21-33) mmol/L Anion Gap (10-20) BUN (7-21) mg/dL Creatinine (0.8-1.5) mg/dl Est GFR ( Amer) Est GFR (Non-Af Amer) POC Glucose (mg/dL) (65-110) mg/dL Random Glucose (70-110) mg/dL Calcium (8.4-10.5) mg/dL Total Bilirubin (0.2-1.3) mg/dL AST (17-59) U/L ALT (7-56) U/L Alkaline Phosphatase (38-126) U/L Total Protein (5.8-8.3) g/dL Albumin (3.0-4.8) g/dL Globulin gm/dL Albumin/Globulin Ratio (1.1-1.8) Venous Blood Potassium 4.5 (3.6-5.2) mmol/L Urine Color Light yellow (YELLOW) Urine Appearance Clear (CLEAR) Urine pH 5.5 (4.7-8.0) Ur Specific [place] 1.010 (1.005-1.035) Urine Protein Negative (<30 mg/dL) mg/dL Urine Glucose (UA) >=1000 (NEGATIVE) mg/dL Urine Ketones >=80 (NEGATIVE) mg/dL Urine Blood Negative (NEGATIVE) Urine Nitrate Negative (NEGATIVE) Urine Bilirubin Negative (NEGATIVE) Urine Urobilinogen 0.2 (<1 E.U./dL) E.U./dL Ur Leukocyte Esterase Negative (NEGATIVE) Abigail/uL 04/20/17 04/20/17 04/20/17 Range/Units 05:16 04:21 03:04 WBC (4.5-11.0) 10^3/ul RBC (3.5-6.1) 10^6/uL Hgb (14.0-18.0) g/dL Hct (42.0-52.0) % MCV (80.0-105.0) fl MCH (25.0-35.0) pg MCHC (31.0-37.0) g/dl RDW (11.5-14.5) % Plt Count (120.0-450.0) 10^3/uL MPV (7.0-11.0) fl Gran % (50.0-68.0) % Lymph % (Auto) (22.0-35.0) % [place] % (Auto) (1.0-6.0) % Eos % (Auto) (1.5-5.0) % Baso % (Auto) (0.0-3.0) % Gran # (1.4-6.5) Lymph # (Auto) (1.2-3.4) [place] # (Auto) (0.1-0.6) Eos # (Auto) (0.0-0.7) Baso # (Auto) (0.0-2.0) K/mm3 pO2 (30-55) mm/Hg VBG pH (7.32-7.43) VBG pCO2 (40-60) VBG HCO3 (21-28) mmol/l VBG Total CO2 (22-28) mmol.L VBG O2 Sat (Calc) (40-65) % VBG Base Excess (0.0-2.0) mmol/L VBG Potassium (3.6-5.2) mmol/L Glucose (75-110) mg/dl Lactate (0.7-2.1) mmol/L FiO2 % Sodium (132-148) mmol/L Potassium (3.6-5.0) mmol/L Chloride (98-107) mmol/L Carbon Dioxide (21-33) mmol/L Anion Gap (10-20) BUN (7-21) mg/dL Creatinine (0.8-1.5) mg/dl Est GFR ( Amer) Est GFR (Non-Af Amer) POC Glucose (mg/dL) 247 H 295 H 352 H (65-110) mg/dL Random Glucose (70-110) mg/dL Calcium (8.4-10.5) mg/dL Total Bilirubin (0.2-1.3) mg/dL AST (17-59) U/L ALT (7-56) U/L Alkaline Phosphatase (38-126) U/L Total Protein (5.8-8.3) g/dL Albumin (3.0-4.8) g/dL Globulin gm/dL Albumin/Globulin Ratio (1.1-1.8) Venous Blood Potassium (3.6-5.2) mmol/L Urine Color (YELLOW) Urine Appearance (CLEAR) Urine pH (4.7-8.0) Ur Specific [place] (1.005-1.035) Urine Protein (<30 mg/dL) mg/dL Urine Glucose (UA) (NEGATIVE) mg/dL Urine Ketones (NEGATIVE) mg/dL Urine Blood (NEGATIVE) Urine Nitrate (NEGATIVE) Urine Bilirubin (NEGATIVE) Urine Urobilinogen (<1 E.U./dL) E.U./dL Ur Leukocyte Esterase (NEGATIVE) Abigail/uL 04/20/17 04/20/17 04/20/17 Range/Units 02:20 01:05 00:35 WBC (4.5-11.0) 10^3/ul RBC (3.5-6.1) 10^6/uL Hgb (14.0-18.0) g/dL Hct (42.0-52.0) % MCV (80.0-105.0) fl MCH (25.0-35.0) pg MCHC (31.0-37.0) g/dl RDW (11.5-14.5) % Plt Count (120.0-450.0) 10^3/uL MPV (7.0-11.0) fl Gran % (50.0-68.0) % Lymph % (Auto) (22.0-35.0) % [place] % (Auto) (1.0-6.0) % Eos % (Auto) (1.5-5.0) % Baso % (Auto) (0.0-3.0) % Gran # (1.4-6.5) Lymph # (Auto) (1.2-3.4) [place] # (Auto) (0.1-0.6) Eos # (Auto) (0.0-0.7) Baso # (Auto) (0.0-2.0) K/mm3 pO2 (30-55) mm/Hg VBG pH (7.32-7.43) VBG pCO2 (40-60) VBG HCO3 (21-28) mmol/l VBG Total CO2 (22-28) mmol.L VBG O2 Sat (Calc) (40-65) % VBG Base Excess (0.0-2.0) mmol/L VBG Potassium (3.6-5.2) mmol/L Glucose (75-110) mg/dl Lactate (0.7-2.1) mmol/L FiO2 % Sodium 132 (132-148) mmol/L Potassium 4.8 (3.6-5.0) mmol/L Chloride 98 (98-107) mmol/L Carbon Dioxide 10 L D (21-33) mmol/L Anion Gap 29 H (10-20) BUN 65 H (7-21) mg/dL Creatinine 1.5 (0.8-1.5) mg/dl Est GFR ( Amer) > 60 Est GFR (Non-Af Amer) 51 POC Glucose (mg/dL) 391 H 390 H (65-110) mg/dL Random Glucose 620 H* D (70-110) mg/dL Calcium 8.6 (8.4-10.5) mg/dL Total Bilirubin (0.2-1.3) mg/dL AST (17-59) U/L ALT (7-56) U/L Alkaline Phosphatase (38-126) U/L Total Protein (5.8-8.3) g/dL Albumin (3.0-4.8) g/dL Globulin gm/dL Albumin/Globulin Ratio (1.1-1.8) Venous Blood Potassium (3.6-5.2) mmol/L Urine Color (YELLOW) Urine Appearance (CLEAR) Urine pH (4.7-8.0) Ur Specific [place] (1.005-1.035) Urine Protein (<30 mg/dL) mg/dL Urine Glucose (UA) (NEGATIVE) mg/dL Urine Ketones (NEGATIVE) mg/dL Urine Blood (NEGATIVE) Urine Nitrate (NEGATIVE) Urine Bilirubin (NEGATIVE) Urine Urobilinogen (<1 E.U./dL) E.U./dL Ur Leukocyte Esterase (NEGATIVE) Abigail/uL 04/20/17 04/19/17 04/19/17 Range/Units 00:14 23:06 21:28 WBC (4.5-11.0) 10^3/ul RBC (3.5-6.1) 10^6/uL Hgb (14.0-18.0) g/dL Hct (42.0-52.0) % MCV (80.0-105.0) fl MCH (25.0-35.0) pg MCHC (31.0-37.0) g/dl RDW (11.5-14.5) % Plt Count (120.0-450.0) 10^3/uL MPV (7.0-11.0) fl Gran % (50.0-68.0) % Lymph % (Auto) (22.0-35.0) % [place] % (Auto) (1.0-6.0) % Eos % (Auto) (1.5-5.0) % Baso % (Auto) (0.0-3.0) % Gran # (1.4-6.5) Lymph # (Auto) (1.2-3.4) [place] # (Auto) (0.1-0.6) Eos # (Auto) (0.0-0.7) Baso # (Auto) (0.0-2.0) K/mm3 pO2 (30-55) mm/Hg VBG pH (7.32-7.43) VBG pCO2 (40-60) VBG HCO3 (21-28) mmol/l VBG Total CO2 (22-28) mmol.L VBG O2 Sat (Calc) (40-65) % VBG Base Excess (0.0-2.0) mmol/L VBG Potassium (3.6-5.2) mmol/L Glucose (75-110) mg/dl Lactate (0.7-2.1) mmol/L FiO2 % Sodium (132-148) mmol/L Potassium (3.6-5.0) mmol/L Chloride (98-107) mmol/L Carbon Dioxide (21-33) mmol/L Anion Gap (10-20) BUN (7-21) mg/dL Creatinine (0.8-1.5) mg/dl Est GFR ( Amer) Est GFR (Non-Af Amer) POC Glucose (mg/dL) 491 H* > 500 H* > 500 H* (65-110) mg/dL Random Glucose (70-110) mg/dL Calcium (8.4-10.5) mg/dL Total Bilirubin (0.2-1.3) mg/dL AST (17-59) U/L ALT (7-56) U/L Alkaline Phosphatase (38-126) U/L Total Protein (5.8-8.3) g/dL Albumin (3.0-4.8) g/dL Globulin gm/dL Albumin/Globulin Ratio (1.1-1.8) Venous Blood Potassium (3.6-5.2) mmol/L Urine Color (YELLOW) Urine Appearance (CLEAR) Urine pH (4.7-8.0) Ur Specific [place] (1.005-1.035) Urine Protein (<30 mg/dL) mg/dL Urine Glucose (UA) (NEGATIVE) mg/dL Urine Ketones (NEGATIVE) mg/dL Urine Blood (NEGATIVE) Urine Nitrate (NEGATIVE) Urine Bilirubin (NEGATIVE) Urine Urobilinogen (<1 E.U./dL) E.U./dL Ur Leukocyte Esterase (NEGATIVE) Abigail/uL Laboratory Results - last 24 hr 04/19/17 04/19/17 04/20/17 21:28 23:06 00:14 WBC RBC Hgb Hct MCV MCH MCHC RDW Plt Count MPV Gran % Lymph % (Auto) [place] % (Auto) Eos % (Auto) Baso % (Auto) Gran # Lymph # (Auto) [place] # (Auto) Eos # (Auto) Baso # (Auto) pO2 VBG pH VBG pCO2 VBG HCO3 VBG Total CO2 VBG O2 Sat (Calc) VBG Base Excess VBG Potassium Glucose Lactate FiO2 Sodium Potassium Chloride Carbon Dioxide Anion Gap BUN Creatinine Est GFR ( Amer) Est GFR (Non-Af Amer) POC Glucose (mg/dL) > 500 H* > 500 H* 491 H* Random Glucose Calcium Total Bilirubin AST ALT Alkaline Phosphatase Total Protein Albumin Globulin Albumin/Globulin Ratio Venous Blood Potassium Urine Color Urine Appearance Urine pH Ur Specific [place] Urine Protein Urine Glucose (UA) Urine Ketones Urine Blood Urine Nitrate Urine Bilirubin Urine Urobilinogen Ur Leukocyte Esterase 04/20/17 04/20/17 04/20/17 00:35 01:05 02:20 WBC RBC Hgb Hct MCV MCH MCHC RDW Plt Count MPV Gran % Lymph % (Auto) [place] % (Auto) Eos % (Auto) Baso % (Auto) Gran # Lymph # (Auto) [place] # (Auto) Eos # (Auto) Baso # (Auto) pO2 VBG pH VBG pCO2 VBG HCO3 VBG Total CO2 VBG O2 Sat (Calc) VBG Base Excess VBG Potassium Glucose Lactate FiO2 Sodium 132 Potassium 4.8 Chloride 98 Carbon Dioxide 10 L D Anion Gap 29 H BUN 65 H Creatinine 1.5 Est GFR ( Amer) > 60 Est GFR (Non-Af Amer) 51 POC Glucose (mg/dL) 390 H 391 H Random Glucose 620 H* D Calcium 8.6 Total Bilirubin AST ALT Alkaline Phosphatase Total Protein Albumin Globulin Albumin/Globulin Ratio Venous Blood Potassium Urine Color Urine Appearance Urine pH Ur Specific [place] Urine Protein Urine Glucose (UA) Urine Ketones Urine Blood Urine Nitrate Urine Bilirubin Urine Urobilinogen Ur Leukocyte Esterase 04/20/17 04/20/17 04/20/17 03:04 04:21 05:16 WBC RBC Hgb Hct MCV MCH MCHC RDW Plt Count MPV Gran % Lymph % (Auto) [place] % (Auto) Eos % (Auto) Baso % (Auto) Gran # Lymph # (Auto) [place] # (Auto) Eos # (Auto) Baso # (Auto) pO2 VBG pH VBG pCO2 VBG HCO3 VBG Total CO2 VBG O2 Sat (Calc) VBG Base Excess VBG Potassium Glucose Lactate FiO2 Sodium Potassium Chloride Carbon Dioxide Anion Gap BUN Creatinine Est GFR ( Amer) Est GFR (Non-Af Amer) POC Glucose (mg/dL) 352 H 295 H 247 H Random Glucose Calcium Total Bilirubin AST ALT Alkaline Phosphatase Total Protein Albumin Globulin Albumin/Globulin Ratio Venous Blood Potassium Urine Color Urine Appearance Urine pH Ur Specific [place] Urine Protein Urine Glucose (UA) Urine Ketones Urine Blood Urine Nitrate Urine Bilirubin Urine Urobilinogen Ur Leukocyte Esterase 04/20/17 04/20/17 04/20/17 06:00 06:10 06:10 WBC 8.0 RBC 2.61 L Hgb 7.8 L Hct 22.3 L MCV 85.4 D MCH 29.9 MCHC 35.0 RDW 13.4 Plt Count 385 MPV 8.5 Gran % 54.4 Lymph % (Auto) 28.7 [place] % (Auto) 16.3 H Eos % (Auto) 0.4 L Baso % (Auto) 0.2 Gran # 4.36 Lymph # (Auto) 2.3 [place] # (Auto) 1.3 H Eos # (Auto) 0.0 Baso # (Auto) 0.02 pO2 50 VBG pH 7.29 L VBG pCO2 43.0 VBG HCO3 20.7 L VBG Total CO2 22.0 VBG O2 Sat (Calc) 92.2 H VBG Base Excess -5.7 L VBG Potassium 4.5 Glucose 277 H Lactate 0.9 FiO2 21.0 Sodium 137.0 Potassium Chloride 111.0 H Carbon Dioxide Anion Gap BUN Creatinine Est GFR ( Amer) Est GFR (Non-Af Amer) POC Glucose (mg/dL) Random Glucose Calcium Total Bilirubin AST ALT Alkaline Phosphatase Total Protein Albumin Globulin Albumin/Globulin Ratio Venous Blood Potassium 4.5 Urine Color Light yellow Urine Appearance Clear Urine pH 5.5 Ur Specific [place] 1.010 Urine Protein Negative Urine Glucose (UA) >=1000 Urine Ketones >=80 Urine Blood Negative Urine Nitrate Negative Urine Bilirubin Negative Urine Urobilinogen 0.2 Ur Leukocyte Esterase Negative 04/20/17 04/20/17 04/20/17 06:10 06:34 07:02 WBC RBC Hgb Hct MCV MCH MCHC RDW Plt Count MPV Gran % Lymph % (Auto) [place] % (Auto) Eos % (Auto) Baso % (Auto) Gran # Lymph # (Auto) [place] # (Auto) Eos # (Auto) Baso # (Auto) pO2 VBG pH VBG pCO2 VBG HCO3 VBG Total CO2 VBG O2 Sat (Calc) VBG Base Excess VBG Potassium Glucose Lactate FiO2 Sodium 139 Potassium 4.3 Chloride 108 H Carbon Dioxide 22 Anion Gap 14 BUN 57 H Creatinine 1.1 Est GFR ( Amer) > 60 Est GFR (Non-Af Amer) > 60 POC Glucose (mg/dL) 224 H 213 H Random Glucose 263 H Calcium 8.9 Total Bilirubin 0.3 AST 24 ALT 19 Alkaline Phosphatase 56 Total Protein 4.7 L Albumin 2.3 L Globulin 2.4 Albumin/Globulin Ratio 1.0 L Venous Blood Potassium Urine Color Urine Appearance Urine pH Ur Specific [place] Urine Protein Urine Glucose (UA) Urine Ketones Urine Blood Urine Nitrate Urine Bilirubin Urine Urobilinogen Ur Leukocyte Esterase EKG/Cardiology Studies: Cardiology / EKG Studies 04/19/17 20:34 EKG [ELECTROCARDIOGRAM] Stat Comment: Reason For Exam: AMS Fingerstick Blood Sugar Results: 213 Review of Systems - Review of Systems All systems: reviewed and no additional remarkable complaints except (as per HPI ) Critical Care Progress Note - Extremities/Vascular Does the Patient have a Central Venous Catheter?: Yes Does the Patient need a Central Venous Catheter?: Yes Does the Patient have a Esquivel Catheter?: No Does the Patient need a Esquivel Catheter?: No - Prophylaxis GI Prophylaxis GI: PPI - Prophylaxis DVT Prophylaxis DVT: SCDs - Nutrition Nutrition: Nutrition Category Date Time Status Heart Healthy Diet [DIET] Diets 04/20/17 Breakfast Ordered Assessment/Plan - Assessment and Plan (Free Text) Assessment: 41 y/o male with PMHx of IDDM, previous episodes of DKA, HTN, HLD, gastritis, recent dx of osteomyelitis (on 4th week of Rocephin via PICC line) and GI bleed who presents with DKA and anemia. Plan: Neuro AAOx3 Continue to monitor for any mental status changes Cardiac: Tachycardia (in the 100s) - likely secondary to anemia vs volume depletion due to DKA vs infection - EKG shows sinus tachycardia - continue to monitor DVT ppx Respiratory: -stable -Maintain SpO2 >95% -Nasal cannula as needed GI: Hx of ?GI mass, suspect upper GI bleed -recent hx of [facility] [place] [place] admission with endoscopy showing ?gastric mass, records requested -GI consult, recs appreciated -Protonix gtt -FOBT; pt has refused rectal exams -Zofran prn Renal: Hyperkalemia resolved -secondary to DKA -continue IVF -monitor electrolytes and replete as necessary -monitor UO Endo: DKA -pmhx of IDDM with multiple bouts of DKA in the past - patient was on insulin drip, but came off after gap closed; 10u Levemir was given -anion gap is now 9 - diet not started due to possible UGI bleed -VBG shows pH=7.29 -NPO, IVF -ISS - accuchecks q4 ID: Hx of osteomyelitis in the right heel; s/p left 5th digit amputation -continue rocephin (pt is on the 4th week of rocephin treatment) -ID consult, recs appreciated -foot XR pending read -will f/u with ESR and CRP -BCx2 pending MSK: s/p amputation of right 5th toe -right heel OM wound bandaged Heme/Onc: Anemia -likely secondary to occult GI bleeding vs ?gastric mass -pt has recevied 2 units of pRBC; Hgb and Hematocrit improved to 7.8/22.3 -repeat CBC at noon DVT ppx: SCDs GI ppx: Protonix gtt Dispo: repeat cbc at noon, f/u with osteomyelitis tests; transfer to med/surg floor if stable Patient was seen, examined and discussed with attending, Dr. David Shepherd OMS IV Ken Logan PGY1 Pager # [phone] <Jony Hernandez - Last Filed: 04/20/17 12:10> CCU Objective - Vital Signs / Intake & Output Intake and Output (Last 8hrs): Intake & Output 04/19/17 04/20/17 04/20/17 22:59 06:59 14:59 Intake Total 0 1757 0 Output Total 1700 Balance 0 57 0 Weight 144 lb 12.8 oz Intake: IV 432 0 Insulin 70 Left Wrist 200 Right Upper arm 120 Oral 0 Tube Feeding 0 TPN/PPN 0 Blood Product 0 1300 Red Blood Cells Cpd As1 325 Lr Unit [id number] Red Blood Cells Cpd As1 0 325 Lr Unit [id number] Lipid 0 Albumin 0 Other 25 Output: Urine 1700 Urine, Voided 1700 Stool 0 Urine/Stool Mix 0 Emesis 0 Oral Regurgitation 0 Other 0 Other: Voiding Method Urinal # Voids Urine, Voided 2 # Bowel Movements 0 - Medications Active Medications: Active Medications Generic Name Dose Route Start Last Admin Trade Name Freq PRN Reason Stop Dose Admin Acetaminophen 325 mg 04/19/17 23:42 Tylenol 325 Mg Supp RC Q6 PRN Fever >100.4 F Insulin Human Regular 100 100 mls @ 10 mls/hr 04/19/17 20:27 04/20/17 07:04 units/ Sodium Chloride IV 4 units/hr .Q10H PRN 4 mls/hr TITRATE PER MD ORDER Titration Protocol 10 UNITS/HR Pantoprazole Sodium 40 mg in 100 mls @ 20 mls/hr 04/19/17 23:45 04/20/17 06: 11 Protonix 40mg Ivpb IVPB 20 mls/hr .Q5H GABI Administration Ceftriaxone Sodium 2 gm in 100 mls @ 100 mls/hr 04/20/17 10:00 04/20/17 09:35 Rocephin 2 Gm Ivpb IVPB 100 mls/hr DAILY GABI Administration Protocol Sodium Chloride 1,000 mls @ 150 mls/hr 04/20/17 08:15 Sodium Chloride 0.9% IV .Q6H40M GABI Insulin Human Lispro 0 units 04/20/17 12:00 Humalog Med SC Q4 GABI Protocol Ondansetron HCl 4 mg 04/20/17 07:54 Zofran Inj IVP Q4H PRN Nausea/Vomiting - Patient Studies Lab Studies: Lab Studies 04/20/17 04/20/17 04/20/17 Range/Units 11:30 11:02 09:15 WBC (4.5-11.0) 10^3/ul RBC (3.5-6.1) 10^6/uL Hgb (14.0-18.0) g/dL Hct (42.0-52.0) % MCV (80.0-105.0) fl MCH (25.0-35.0) pg MCHC (31.0-37.0) g/dl RDW (11.5-14.5) % Plt Count (120.0-450.0) 10^3/uL MPV (7.0-11.0) fl Gran % (50.0-68.0) % Lymph % (Auto) (22.0-35.0) % [place] % (Auto) (1.0-6.0) % Eos % (Auto) (1.5-5.0) % Baso % (Auto) (0.0-3.0) % Gran # (1.4-6.5) Lymph # (Auto) (1.2-3.4) [place] # (Auto) (0.1-0.6) Eos # (Auto) (0.0-0.7) Baso # (Auto) (0.0-2.0) K/mm3 pO2 (30-55) mm/Hg VBG pH (7.32-7.43) VBG pCO2 (40-60) VBG HCO3 (21-28) mmol/l VBG Total CO2 (22-28) mmol.L VBG O2 Sat (Calc) (40-65) % VBG Base Excess (0.0-2.0) mmol/L VBG Potassium (3.6-5.2) mmol/L Glucose (75-110) mg/dl Lactate (0.7-2.1) mmol/L FiO2 % Sodium (132-148) mmol/L Potassium (3.6-5.0) mmol/L Chloride (98-107) mmol/L Carbon Dioxide (21-33) mmol/L Anion Gap (10-20) BUN (7-21) mg/dL Creatinine (0.8-1.5) mg/dl Est GFR ( Amer) Est GFR (Non-Af Amer) POC Glucose (mg/dL) 137 H 162 H (65-110) mg/dL Random Glucose (70-110) mg/dL Calcium (8.4-10.5) mg/dL Phosphorus (2.5-4.5) mg/dL Magnesium (1.7-2.2) mg/dL Total Bilirubin (0.2-1.3) mg/dL AST (17-59) U/L ALT (7-56) U/L Alkaline Phosphatase (38-126) U/L Total Protein (5.8-8.3) g/dL Albumin (3.0-4.8) g/dL Globulin gm/dL Albumin/Globulin Ratio (1.1-1.8) Venous Blood Potassium (3.6-5.2) mmol/L Urine Color (YELLOW) Urine Appearance (CLEAR) Urine pH (4.7-8.0) Ur Specific [place] (1.005-1.035) Urine Protein (<30 mg/dL) mg/dL Urine Glucose (UA) (NEGATIVE) mg/dL Urine Ketones (NEGATIVE) mg/dL Urine Blood (NEGATIVE) Urine Nitrate (NEGATIVE) Urine Bilirubin (NEGATIVE) Urine Urobilinogen (<1 E.U./dL) E.U./dL Ur Leukocyte Esterase (NEGATIVE) Abigail/uL Urine Opiates Screen Negative (NEGATIVE) Urine Methadone Screen Negative (NEGATIVE) Ur Barbiturates Screen Negative (NEGATIVE) Ur Phencyclidine Scrn Negative (NEGATIVE) Ur Amphetamines Screen Negative (NEGATIVE) U Benzodiazepines Scrn Negative (NEGATIVE) U Oth Cocaine Metabols Negative (NEGATIVE) U Cannabinoids Screen Negative (NEGATIVE) Alcohol, Quantitative (0-10) mg/dL 04/20/17 04/20/17 04/20/17 Range/Units 07:30 07:02 06:34 WBC (4.5-11.0) 10^3/ul RBC (3.5-6.1) 10^6/uL Hgb (14.0-18.0) g/dL Hct (42.0-52.0) % MCV (80.0-105.0) fl MCH (25.0-35.0) pg MCHC (31.0-37.0) g/dl RDW (11.5-14.5) % Plt Count (120.0-450.0) 10^3/uL MPV (7.0-11.0) fl Gran % (50.0-68.0) % Lymph % (Auto) (22.0-35.0) % [place] % (Auto) (1.0-6.0) % Eos % (Auto) (1.5-5.0) % Baso % (Auto) (0.0-3.0) % Gran # (1.4-6.5) Lymph # (Auto) (1.2-3.4) [place] # (Auto) (0.1-0.6) Eos # (Auto) (0.0-0.7) Baso # (Auto) (0.0-2.0) K/mm3 pO2 (30-55) mm/Hg VBG pH (7.32-7.43) VBG pCO2 (40-60) VBG HCO3 (21-28) mmol/l VBG Total CO2 (22-28) mmol.L VBG O2 Sat (Calc) (40-65) % VBG Base Excess (0.0-2.0) mmol/L VBG Potassium (3.6-5.2) mmol/L Glucose (75-110) mg/dl Lactate (0.7-2.1) mmol/L FiO2 % Sodium (132-148) mmol/L Potassium (3.6-5.0) mmol/L Chloride (98-107) mmol/L Carbon Dioxide (21-33) mmol/L Anion Gap (10-20) BUN (7-21) mg/dL Creatinine (0.8-1.5) mg/dl Est GFR ( Amer) Est GFR (Non-Af Amer) POC Glucose (mg/dL) 213 H 224 H (65-110) mg/dL Random Glucose (70-110) mg/dL Calcium (8.4-10.5) mg/dL Phosphorus (2.5-4.5) mg/dL Magnesium (1.7-2.2) mg/dL Total Bilirubin (0.2-1.3) mg/dL AST (17-59) U/L ALT (7-56) U/L Alkaline Phosphatase (38-126) U/L Total Protein (5.8-8.3) g/dL Albumin (3.0-4.8) g/dL Globulin gm/dL Albumin/Globulin Ratio (1.1-1.8) Venous Blood Potassium (3.6-5.2) mmol/L Urine Color (YELLOW) Urine Appearance (CLEAR) Urine pH (4.7-8.0) Ur Specific [place] (1.005-1.035) Urine Protein (<30 mg/dL) mg/dL Urine Glucose (UA) (NEGATIVE) mg/dL Urine Ketones (NEGATIVE) mg/dL Urine Blood (NEGATIVE) Urine Nitrate (NEGATIVE) Urine Bilirubin (NEGATIVE) Urine Urobilinogen (<1 E.U./dL) E.U./dL Ur Leukocyte Esterase (NEGATIVE) Abigail/uL Urine Opiates Screen (NEGATIVE) Urine Methadone Screen (NEGATIVE) Ur Barbiturates Screen (NEGATIVE) Ur Phencyclidine Scrn (NEGATIVE) Ur Amphetamines Screen (NEGATIVE) U Benzodiazepines Scrn (NEGATIVE) U Oth Cocaine Metabols (NEGATIVE) U Cannabinoids Screen (NEGATIVE) Alcohol, Quantitative < 10 (0-10) mg/dL 04/20/17 04/20/17 04/20/17 Range/Units 06:30 06:10 06:10 WBC 8.0 (4.5-11.0) 10^3/ul RBC 2.61 L (3.5-6.1) 10^6/uL Hgb 7.8 L (14.0-18.0) g/dL Hct 22.3 L (42.0-52.0) % MCV 85.4 D (80.0-105.0) fl MCH 29.9 (25.0-35.0) pg MCHC 35.0 (31.0-37.0) g/dl RDW 13.4 (11.5-14.5) % Plt Count 385 (120.0-450.0) 10^3/uL MPV 8.5 (7.0-11.0) fl Gran % 54.4 (50.0-68.0) % Lymph % (Auto) 28.7 (22.0-35.0) % [place] % (Auto) 16.3 H (1.0-6.0) % Eos % (Auto) 0.4 L (1.5-5.0) % Baso % (Auto) 0.2 (0.0-3.0) % Gran # 4.36 (1.4-6.5) Lymph # (Auto) 2.3 (1.2-3.4) [place] # (Auto) 1.3 H (0.1-0.6) Eos # (Auto) 0.0 (0.0-0.7) Baso # (Auto) 0.02 (0.0-2.0) K/mm3 pO2 (30-55) mm/Hg VBG pH (7.32-7.43) VBG pCO2 (40-60) VBG HCO3 (21-28) mmol/l VBG Total CO2 (22-28) mmol.L VBG O2 Sat (Calc) (40-65) % VBG Base Excess (0.0-2.0) mmol/L VBG Potassium (3.6-5.2) mmol/L Glucose (75-110) mg/dl Lactate (0.7-2.1) mmol/L FiO2 % Sodium 138 139 (132-148) mmol/L Potassium 4.6 4.3 (3.6-5.0) mmol/L Chloride 108 H 108 H (98-107) mmol/L Carbon Dioxide 22 22 (21-33) mmol/L Anion Gap 13 14 (10-20) BUN 59 H 57 H (7-21) mg/dL Creatinine 1.1 1.1 (0.8-1.5) mg/dl Est GFR ( Amer) > 60 > 60 Est GFR (Non-Af Amer) > 60 > 60 POC Glucose (mg/dL) (65-110) mg/dL Random Glucose 256 H 263 H (70-110) mg/dL Calcium 8.9 8.9 (8.4-10.5) mg/dL Phosphorus 2.5 (2.5-4.5) mg/dL Magnesium 2.3 H (1.7-2.2) mg/dL Total Bilirubin 0.3 (0.2-1.3) mg/dL AST 24 (17-59) U/L ALT 19 (7-56) U/L Alkaline Phosphatase 56 (38-126) U/L Total Protein 4.7 L (5.8-8.3) g/dL Albumin 2.3 L (3.0-4.8) g/dL Globulin 2.4 gm/dL Albumin/Globulin Ratio 1.0 L (1.1-1.8) Venous Blood Potassium (3.6-5.2) mmol/L Urine Color (YELLOW) Urine Appearance (CLEAR) Urine pH (4.7-8.0) Ur Specific [place] (1.005-1.035) Urine Protein (<30 mg/dL) mg/dL Urine Glucose (UA) (NEGATIVE) mg/dL Urine Ketones (NEGATIVE) mg/dL Urine Blood (NEGATIVE) Urine Nitrate (NEGATIVE) Urine Bilirubin (NEGATIVE) Urine Urobilinogen (<1 E.U./dL) E.U./dL Ur Leukocyte Esterase (NEGATIVE) Abigail/uL Urine Opiates Screen (NEGATIVE) Urine Methadone Screen (NEGATIVE) Ur Barbiturates Screen (NEGATIVE) Ur Phencyclidine Scrn (NEGATIVE) Ur Amphetamines Screen (NEGATIVE) U Benzodiazepines Scrn (NEGATIVE) U Oth Cocaine Metabols (NEGATIVE) U Cannabinoids Screen (NEGATIVE) Alcohol, Quantitative (0-10) mg/dL 04/20/17 04/20/17 04/20/17 Range/Units 06:10 06:00 05:16 WBC (4.5-11.0) 10^3/ul RBC (3.5-6.1) 10^6/uL Hgb (14.0-18.0) g/dL Hct (42.0-52.0) % MCV (80.0-105.0) fl MCH (25.0-35.0) pg MCHC (31.0-37.0) g/dl RDW (11.5-14.5) % Plt Count (120.0-450.0) 10^3/uL MPV (7.0-11.0) fl Gran % (50.0-68.0) % Lymph % (Auto) (22.0-35.0) % [place] % (Auto) (1.0-6.0) % Eos % (Auto) (1.5-5.0) % Baso % (Auto) (0.0-3.0) % Gran # (1.4-6.5) Lymph # (Auto) (1.2-3.4) [place] # (Auto) (0.1-0.6) Eos # (Auto) (0.0-0.7) Baso # (Auto) (0.0-2.0) K/mm3 pO2 50 (30-55) mm/Hg VBG pH 7.29 L (7.32-7.43) VBG pCO2 43.0 (40-60) VBG HCO3 20.7 L (21-28) mmol/l VBG Total CO2 22.0 (22-28) mmol.L VBG O2 Sat (Calc) 92.2 H (40-65) % VBG Base Excess -5.7 L (0.0-2.0) mmol/L VBG Potassium 4.5 (3.6-5.2) mmol/L Glucose 277 H (75-110) mg/dl Lactate 0.9 (0.7-2.1) mmol/L FiO2 21.0 % Sodium 137.0 (132-148) mmol/L Potassium (3.6-5.0) mmol/L Chloride 111.0 H (98-107) mmol/L Carbon Dioxide (21-33) mmol/L Anion Gap (10-20) BUN (7-21) mg/dL Creatinine (0.8-1.5) mg/dl Est GFR ( Amer) Est GFR (Non-Af Amer) POC Glucose (mg/dL) 247 H (65-110) mg/dL Random Glucose (70-110) mg/dL Calcium (8.4-10.5) mg/dL Phosphorus (2.5-4.5) mg/dL Magnesium (1.7-2.2) mg/dL Total Bilirubin (0.2-1.3) mg/dL AST (17-59) U/L ALT (7-56) U/L Alkaline Phosphatase (38-126) U/L Total Protein (5.8-8.3) g/dL Albumin (3.0-4.8) g/dL Globulin gm/dL Albumin/Globulin Ratio (1.1-1.8) Venous Blood Potassium 4.5 (3.6-5.2) mmol/L Urine Color Light yellow (YELLOW) Urine Appearance Clear (CLEAR) Urine pH 5.5 (4.7-8.0) Ur Specific [place] 1.010 (1.005-1.035) Urine Protein Negative (<30 mg/dL) mg/dL Urine Glucose (UA) >=1000 (NEGATIVE) mg/dL Urine Ketones >=80 (NEGATIVE) mg/dL Urine Blood Negative (NEGATIVE) Urine Nitrate Negative (NEGATIVE) Urine Bilirubin Negative (NEGATIVE) Urine Urobilinogen 0.2 (<1 E.U./dL) E.U./dL Ur Leukocyte Esterase Negative (NEGATIVE) Abigail/uL Urine Opiates Screen (NEGATIVE) Urine Methadone Screen (NEGATIVE) Ur Barbiturates Screen (NEGATIVE) Ur Phencyclidine Scrn (NEGATIVE) Ur Amphetamines Screen (NEGATIVE) U Benzodiazepines Scrn (NEGATIVE) U Oth Cocaine Metabols (NEGATIVE) U Cannabinoids Screen (NEGATIVE) Alcohol, Quantitative (0-10) mg/dL 04/20/17 04/20/17 04/20/17 Range/Units 04:21 03:04 02:20 WBC (4.5-11.0) 10^3/ul RBC (3.5-6.1) 10^6/uL Hgb (14.0-18.0) g/dL Hct (42.0-52.0) % MCV (80.0-105.0) fl MCH (25.0-35.0) pg MCHC (31.0-37.0) g/dl RDW (11.5-14.5) % Plt Count (120.0-450.0) 10^3/uL MPV (7.0-11.0) fl Gran % (50.0-68.0) % Lymph % (Auto) (22.0-35.0) % [place] % (Auto) (1.0-6.0) % Eos % (Auto) (1.5-5.0) % Baso % (Auto) (0.0-3.0) % Gran # (1.4-6.5) Lymph # (Auto) (1.2-3.4) [place] # (Auto) (0.1-0.6) Eos # (Auto) (0.0-0.7) Baso # (Auto) (0.0-2.0) K/mm3 pO2 (30-55) mm/Hg VBG pH (7.32-7.43) VBG pCO2 (40-60) VBG HCO3 (21-28) mmol/l VBG Total CO2 (22-28) mmol.L VBG O2 Sat (Calc) (40-65) % VBG Base Excess (0.0-2.0) mmol/L VBG Potassium (3.6-5.2) mmol/L Glucose (75-110) mg/dl Lactate (0.7-2.1) mmol/L FiO2 % Sodium (132-148) mmol/L Potassium (3.6-5.0) mmol/L Chloride (98-107) mmol/L Carbon Dioxide (21-33) mmol/L Anion Gap (10-20) BUN (7-21) mg/dL Creatinine (0.8-1.5) mg/dl Est GFR ( Amer) Est GFR (Non-Af Amer) POC Glucose (mg/dL) 295 H 352 H 391 H (65-110) mg/dL Random Glucose (70-110) mg/dL Calcium (8.4-10.5) mg/dL Phosphorus (2.5-4.5) mg/dL Magnesium (1.7-2.2) mg/dL Total Bilirubin (0.2-1.3) mg/dL AST (17-59) U/L ALT (7-56) U/L Alkaline Phosphatase (38-126) U/L Total Protein (5.8-8.3) g/dL Albumin (3.0-4.8) g/dL Globulin gm/dL Albumin/Globulin Ratio (1.1-1.8) Venous Blood Potassium (3.6-5.2) mmol/L Urine Color (YELLOW) Urine Appearance (CLEAR) Urine pH (4.7-8.0) Ur Specific [place] (1.005-1.035) Urine Protein (<30 mg/dL) mg/dL Urine Glucose (UA) (NEGATIVE) mg/dL Urine Ketones (NEGATIVE) mg/dL Urine Blood (NEGATIVE) Urine Nitrate (NEGATIVE) Urine Bilirubin (NEGATIVE) Urine Urobilinogen (<1 E.U./dL) E.U./dL Ur Leukocyte Esterase (NEGATIVE) Abigail/uL Urine Opiates Screen (NEGATIVE) Urine Methadone Screen (NEGATIVE) Ur Barbiturates Screen (NEGATIVE) Ur Phencyclidine Scrn (NEGATIVE) Ur Amphetamines Screen (NEGATIVE) U Benzodiazepines Scrn (NEGATIVE) U Oth Cocaine Metabols (NEGATIVE) U Cannabinoids Screen (NEGATIVE) Alcohol, Quantitative (0-10) mg/dL 04/20/17 04/20/17 04/20/17 Range/Units 01:05 00:35 00:14 WBC (4.5-11.0) 10^3/ul RBC (3.5-6.1) 10^6/uL Hgb (14.0-18.0) g/dL Hct (42.0-52.0) % MCV (80.0-105.0) fl MCH (25.0-35.0) pg MCHC (31.0-37.0) g/dl RDW (11.5-14.5) % Plt Count (120.0-450.0) 10^3/uL MPV (7.0-11.0) fl Gran % (50.0-68.0) % Lymph % (Auto) (22.0-35.0) % [place] % (Auto) (1.0-6.0) % Eos % (Auto) (1.5-5.0) % Baso % (Auto) (0.0-3.0) % Gran # (1.4-6.5) Lymph # (Auto) (1.2-3.4) [place] # (Auto) (0.1-0.6) Eos # (Auto) (0.0-0.7) Baso # (Auto) (0.0-2.0) K/mm3 pO2 (30-55) mm/Hg VBG pH (7.32-7.43) VBG pCO2 (40-60) VBG HCO3 (21-28) mmol/l VBG Total CO2 (22-28) mmol.L VBG O2 Sat (Calc) (40-65) % VBG Base Excess (0.0-2.0) mmol/L VBG Potassium (3.6-5.2) mmol/L Glucose (75-110) mg/dl Lactate (0.7-2.1) mmol/L FiO2 % Sodium 132 (132-148) mmol/L Potassium 4.8 (3.6-5.0) mmol/L Chloride 98 (98-107) mmol/L Carbon Dioxide 10 L D (21-33) mmol/L Anion Gap 29 H (10-20) BUN 65 H (7-21) mg/dL Creatinine 1.5 (0.8-1.5) mg/dl Est GFR ( Amer) > 60 Est GFR (Non-Af Amer) 51 POC Glucose (mg/dL) 390 H 491 H* (65-110) mg/dL Random Glucose 620 H* D (70-110) mg/dL Calcium 8.6 (8.4-10.5) mg/dL Phosphorus (2.5-4.5) mg/dL Magnesium (1.7-2.2) mg/dL Total Bilirubin (0.2-1.3) mg/dL AST (17-59) U/L ALT (7-56) U/L Alkaline Phosphatase (38-126) U/L Total Protein (5.8-8.3) g/dL Albumin (3.0-4.8) g/dL Globulin gm/dL Albumin/Globulin Ratio (1.1-1.8) Venous Blood Potassium (3.6-5.2) mmol/L Urine Color (YELLOW) Urine Appearance (CLEAR) Urine pH (4.7-8.0) Ur Specific [place] (1.005-1.035) Urine Protein (<30 mg/dL) mg/dL Urine Glucose (UA) (NEGATIVE) mg/dL Urine Ketones (NEGATIVE) mg/dL Urine Blood (NEGATIVE) Urine Nitrate (NEGATIVE) Urine Bilirubin (NEGATIVE) Urine Urobilinogen (<1 E.U./dL) E.U./dL Ur Leukocyte Esterase (NEGATIVE) Abigail/uL Urine Opiates Screen (NEGATIVE) Urine Methadone Screen (NEGATIVE) Ur Barbiturates Screen (NEGATIVE) Ur Phencyclidine Scrn (NEGATIVE) Ur Amphetamines Screen (NEGATIVE) U Benzodiazepines Scrn (NEGATIVE) U Oth Cocaine Metabols (NEGATIVE) U Cannabinoids Screen (NEGATIVE) Alcohol, Quantitative (0-10) mg/dL 04/19/17 04/19/17 Range/Units 23:06 21:28 WBC (4.5-11.0) 10^3/ul RBC (3.5-6.1) 10^6/uL Hgb (14.0-18.0) g/dL Hct (42.0-52.0) % MCV (80.0-105.0) fl MCH (25.0-35.0) pg MCHC (31.0-37.0) g/dl RDW (11.5-14.5) % Plt Count (120.0-450.0) 10^3/uL MPV (7.0-11.0) fl Gran % (50.0-68.0) % Lymph % (Auto) (22.0-35.0) % [place] % (Auto) (1.0-6.0) % Eos % (Auto) (1.5-5.0) % Baso % (Auto) (0.0-3.0) % Gran # (1.4-6.5) Lymph # (Auto) (1.2-3.4) [place] # (Auto) (0.1-0.6) Eos # (Auto) (0.0-0.7) Baso # (Auto) (0.0-2.0) K/mm3 pO2 (30-55) mm/Hg VBG pH (7.32-7.43) VBG pCO2 (40-60) VBG HCO3 (21-28) mmol/l VBG Total CO2 (22-28) mmol.L VBG O2 Sat (Calc) (40-65) % VBG Base Excess (0.0-2.0) mmol/L VBG Potassium (3.6-5.2) mmol/L Glucose (75-110) mg/dl Lactate (0.7-2.1) mmol/L FiO2 % Sodium (132-148) mmol/L Potassium (3.6-5.0) mmol/L Chloride (98-107) mmol/L Carbon Dioxide (21-33) mmol/L Anion Gap (10-20) BUN (7-21) mg/dL Creatinine (0.8-1.5) mg/dl Est GFR ( Amer) Est GFR (Non-Af Amer) POC Glucose (mg/dL) > 500 H* > 500 H* (65-110) mg/dL Random Glucose (70-110) mg/dL Calcium (8.4-10.5) mg/dL Phosphorus (2.5-4.5) mg/dL Magnesium (1.7-2.2) mg/dL Total Bilirubin (0.2-1.3) mg/dL AST (17-59) U/L ALT (7-56) U/L Alkaline Phosphatase (38-126) U/L Total Protein (5.8-8.3) g/dL Albumin (3.0-4.8) g/dL Globulin gm/dL Albumin/Globulin Ratio (1.1-1.8) Venous Blood Potassium (3.6-5.2) mmol/L Urine Color (YELLOW) Urine Appearance (CLEAR) Urine pH (4.7-8.0) Ur Specific [place] (1.005-1.035) Urine Protein (<30 mg/dL) mg/dL Urine Glucose (UA) (NEGATIVE) mg/dL Urine Ketones (NEGATIVE) mg/dL Urine Blood (NEGATIVE) Urine Nitrate (NEGATIVE) Urine Bilirubin (NEGATIVE) Urine Urobilinogen (<1 E.U./dL) E.U./dL Ur Leukocyte Esterase (NEGATIVE) Abigail/uL Urine Opiates Screen (NEGATIVE) Urine Methadone Screen (NEGATIVE) Ur Barbiturates Screen (NEGATIVE) Ur Phencyclidine Scrn (NEGATIVE) Ur Amphetamines Screen (NEGATIVE) U Benzodiazepines Scrn (NEGATIVE) U Oth Cocaine Metabols (NEGATIVE) U Cannabinoids Screen (NEGATIVE) Alcohol, Quantitative (0-10) mg/dL Laboratory Results - last 24 hr 04/19/17 04/19/17 04/20/17 21:28 23:06 00:14 WBC RBC Hgb Hct MCV MCH MCHC RDW Plt Count MPV Gran % Lymph % (Auto) [place] % (Auto) Eos % (Auto) Baso % (Auto) Gran # Lymph # (Auto) [place] # (Auto) Eos # (Auto) Baso # (Auto) pO2 VBG pH VBG pCO2 VBG HCO3 VBG Total CO2 VBG O2 Sat (Calc) VBG Base Excess VBG Potassium Glucose Lactate FiO2 Sodium Potassium Chloride Carbon Dioxide Anion Gap BUN Creatinine Est GFR ( Amer) Est GFR (Non-Af Amer) POC Glucose (mg/dL) > 500 H* > 500 H* 491 H* Random Glucose Calcium Phosphorus Magnesium Total Bilirubin AST ALT Alkaline Phosphatase Total Protein Albumin Globulin Albumin/Globulin Ratio Venous Blood Potassium Urine Color Urine Appearance Urine pH Ur Specific [place] Urine Protein Urine Glucose (UA) Urine Ketones Urine Blood Urine Nitrate Urine Bilirubin Urine Urobilinogen Ur Leukocyte Esterase Urine Opiates Screen Urine Methadone Screen Ur Barbiturates Screen Ur Phencyclidine Scrn Ur Amphetamines Screen U Benzodiazepines Scrn U Oth Cocaine Metabols U Cannabinoids Screen Alcohol, Quantitative 04/20/17 04/20/17 04/20/17 00:35 01:05 02:20 WBC RBC Hgb Hct MCV MCH MCHC RDW Plt Count MPV Gran % Lymph % (Auto) [place] % (Auto) Eos % (Auto) Baso % (Auto) Gran # Lymph # (Auto) [place] # (Auto) Eos # (Auto) Baso # (Auto) pO2 VBG pH VBG pCO2 VBG HCO3 VBG Total CO2 VBG O2 Sat (Calc) VBG Base Excess VBG Potassium Glucose Lactate FiO2 Sodium 132 Potassium 4.8 Chloride 98 Carbon Dioxide 10 L D Anion Gap 29 H BUN 65 H Creatinine 1.5 Est GFR ( Amer) > 60 Est GFR (Non-Af Amer) 51 POC Glucose (mg/dL) 390 H 391 H Random Glucose 620 H* D Calcium 8.6 Phosphorus Magnesium Total Bilirubin AST ALT Alkaline Phosphatase Total Protein Albumin Globulin Albumin/Globulin Ratio Venous Blood Potassium Urine Color Urine Appearance Urine pH Ur Specific [place] Urine Protein Urine Glucose (UA) Urine Ketones Urine Blood Urine Nitrate Urine Bilirubin Urine Urobilinogen Ur Leukocyte Esterase Urine Opiates Screen Urine Methadone Screen Ur Barbiturates Screen Ur Phencyclidine Scrn Ur Amphetamines Screen U Benzodiazepines Scrn U Oth Cocaine Metabols U Cannabinoids Screen Alcohol, Quantitative 04/20/17 04/20/17 04/20/17 03:04 04:21 05:16 WBC RBC Hgb Hct MCV MCH MCHC RDW Plt Count MPV Gran % Lymph % (Auto) [place] % (Auto) Eos % (Auto) Baso % (Auto) Gran # Lymph # (Auto) [place] # (Auto) Eos # (Auto) Baso # (Auto) pO2 VBG pH VBG pCO2 VBG HCO3 VBG Total CO2 VBG O2 Sat (Calc) VBG Base Excess VBG Potassium Glucose Lactate FiO2 Sodium Potassium Chloride Carbon Dioxide Anion Gap BUN Creatinine Est GFR ( Amer) Est GFR (Non-Af Amer) POC Glucose (mg/dL) 352 H 295 H 247 H Random Glucose Calcium Phosphorus Magnesium Total Bilirubin AST ALT Alkaline Phosphatase Total Protein Albumin Globulin Albumin/Globulin Ratio Venous Blood Potassium Urine Color Urine Appearance Urine pH Ur Specific [place] Urine Protein Urine Glucose (UA) Urine Ketones Urine Blood Urine Nitrate Urine Bilirubin Urine Urobilinogen Ur Leukocyte Esterase Urine Opiates Screen Urine Methadone Screen Ur Barbiturates Screen Ur Phencyclidine Scrn Ur Amphetamines Screen U Benzodiazepines Scrn U Oth Cocaine Metabols U Cannabinoids Screen Alcohol, Quantitative 04/20/17 04/20/17 04/20/17 06:00 06:10 06:10 WBC 8.0 RBC 2.61 L Hgb 7.8 L Hct 22.3 L MCV 85.4 D MCH 29.9 MCHC 35.0 RDW 13.4 Plt Count 385 MPV 8.5 Gran % 54.4 Lymph % (Auto) 28.7 [place] % (Auto) 16.3 H Eos % (Auto) 0.4 L Baso % (Auto) 0.2 Gran # 4.36 Lymph # (Auto) 2.3 [place] # (Auto) 1.3 H Eos # (Auto) 0.0 Baso # (Auto) 0.02 pO2 50 VBG pH 7.29 L VBG pCO2 43.0 VBG HCO3 20.7 L VBG Total CO2 22.0 VBG O2 Sat (Calc) 92.2 H VBG Base Excess -5.7 L VBG Potassium 4.5 Glucose 277 H Lactate 0.9 FiO2 21.0 Sodium 137.0 Potassium Chloride 111.0 H Carbon Dioxide Anion Gap BUN Creatinine Est GFR ( Amer) Est GFR (Non-Af Amer) POC Glucose (mg/dL) Random Glucose Calcium Phosphorus Magnesium Total Bilirubin AST ALT Alkaline Phosphatase Total Protein Albumin Globulin Albumin/Globulin Ratio Venous Blood Potassium 4.5 Urine Color Light yellow Urine Appearance Clear Urine pH 5.5 Ur Specific [place] 1.010 Urine Protein Negative Urine Glucose (UA) >=1000 Urine Ketones >=80 Urine Blood Negative Urine Nitrate Negative Urine Bilirubin Negative Urine Urobilinogen 0.2 Ur Leukocyte Esterase Negative Urine Opiates Screen Urine Methadone Screen Ur Barbiturates Screen Ur Phencyclidine Scrn Ur Amphetamines Screen U Benzodiazepines Scrn U Oth Cocaine Metabols U Cannabinoids Screen Alcohol, Quantitative 04/20/17 04/20/17 04/20/17 06:10 06:30 06:34 WBC RBC Hgb Hct MCV MCH MCHC RDW Plt Count MPV Gran % Lymph % (Auto) [place] % (Auto) Eos % (Auto) Baso % (Auto) Gran # Lymph # (Auto) [place] # (Auto) Eos # (Auto) Baso # (Auto) pO2 VBG pH VBG pCO2 VBG HCO3 VBG Total CO2 VBG O2 Sat (Calc) VBG Base Excess VBG Potassium Glucose Lactate FiO2 Sodium 139 138 Potassium 4.3 4.6 Chloride 108 H 108 H Carbon Dioxide 22 22 Anion Gap 14 13 BUN 57 H 59 H Creatinine 1.1 1.1 Est GFR ( Amer) > 60 > 60 Est GFR (Non-Af Amer) > 60 > 60 POC Glucose (mg/dL) 224 H Random Glucose 263 H 256 H Calcium 8.9 8.9 Phosphorus 2.5 Magnesium 2.3 H Total Bilirubin 0.3 AST 24 ALT 19 Alkaline Phosphatase 56 Total Protein 4.7 L Albumin 2.3 L Globulin 2.4 Albumin/Globulin Ratio 1.0 L Venous Blood Potassium Urine Color Urine Appearance Urine pH Ur Specific [place] Urine Protein Urine Glucose (UA) Urine Ketones Urine Blood Urine Nitrate Urine Bilirubin Urine Urobilinogen Ur Leukocyte Esterase Urine Opiates Screen Urine Methadone Screen Ur Barbiturates Screen Ur Phencyclidine Scrn Ur Amphetamines Screen U Benzodiazepines Scrn U Oth Cocaine Metabols U Cannabinoids Screen Alcohol, Quantitative 04/20/17 04/20/17 04/20/17 07:02 07:30 09:15 WBC RBC Hgb Hct MCV MCH MCHC RDW Plt Count MPV Gran % Lymph % (Auto) [place] % (Auto) Eos % (Auto) Baso % (Auto) Gran # Lymph # (Auto) [place] # (Auto) Eos # (Auto) Baso # (Auto) pO2 VBG pH VBG pCO2 VBG HCO3 VBG Total CO2 VBG O2 Sat (Calc) VBG Base Excess VBG Potassium Glucose Lactate FiO2 Sodium Potassium Chloride Carbon Dioxide Anion Gap BUN Creatinine Est GFR ( Amer) Est GFR (Non-Af Amer) POC Glucose (mg/dL) 213 H 162 H Random Glucose Calcium Phosphorus Magnesium Total Bilirubin AST ALT Alkaline Phosphatase Total Protein Albumin Globulin Albumin/Globulin Ratio Venous Blood Potassium Urine Color Urine Appearance Urine pH Ur Specific [place] Urine Protein Urine Glucose (UA) Urine Ketones Urine Blood Urine Nitrate Urine Bilirubin Urine Urobilinogen Ur Leukocyte Esterase Urine Opiates Screen Urine Methadone Screen Ur Barbiturates Screen Ur Phencyclidine Scrn Ur Amphetamines Screen U Benzodiazepines Scrn U Oth Cocaine Metabols U Cannabinoids Screen Alcohol, Quantitative < 10 04/20/17 04/20/17 11:02 11:30 WBC RBC Hgb Hct MCV MCH MCHC RDW Plt Count MPV Gran % Lymph % (Auto) [place] % (Auto) Eos % (Auto) Baso % (Auto) Gran # Lymph # (Auto) [place] # (Auto) Eos # (Auto) Baso # (Auto) pO2 VBG pH VBG pCO2 VBG HCO3 VBG Total CO2 VBG O2 Sat (Calc) VBG Base Excess VBG Potassium Glucose Lactate FiO2 Sodium Potassium Chloride Carbon Dioxide Anion Gap BUN Creatinine Est GFR ( Amer) Est GFR (Non-Af Amer) POC Glucose (mg/dL) 137 H Random Glucose Calcium Phosphorus Magnesium Total Bilirubin AST ALT Alkaline Phosphatase Total Protein Albumin Globulin Albumin/Globulin Ratio Venous Blood Potassium Urine Color Urine Appearance Urine pH Ur Specific [place] Urine Protein Urine Glucose (UA) Urine Ketones Urine Blood Urine Nitrate Urine Bilirubin Urine Urobilinogen Ur Leukocyte Esterase Urine Opiates Screen Negative Urine Methadone Screen Negative Ur Barbiturates Screen Negative Ur Phencyclidine Scrn Negative Ur Amphetamines Screen Negative U Benzodiazepines Scrn Negative U Oth Cocaine Metabols Negative U Cannabinoids Screen Negative Alcohol, Quantitative EKG/Cardiology Studies: Cardiology / EKG Studies 04/19/17 20:34 EKG [ELECTROCARDIOGRAM] Stat Comment: Reason For Exam: AMS Critical Care Progress Note - Nutrition Nutrition: Nutrition Category Date Time Status NPO Diet [DIET] Diets 04/20/17 Breakfast Ordered Assessment/Plan - Assessment and Plan (Free Text) Assessment: Patient seen and examined, on rounds with resident, agree with note with following additions/exceptions: Patient is 41 y/o male with PMHx of IDDM, previous episodes of DKA, HTN, HLD, gastritis, recent dx of osteomyelitis (on 4th week of Rocephin via PICC line) and GI bleed admitted with DKA and anemia. Currently afebrile, HD stable, comfortable in NAD. Labs with CLOSED AG, off insulin drip, given Lantus 10units , IVF hydraiton. Pt is kept NPO for anemia/GIB workup. GI and ID consulted. On antibiotics. Stable. DKA, resolved GIB Anemia Dehydration Osteomyelitis Recommend: - supp o2 as needed - antibiotics as per ID - IVF hydration - BP control - Lantus 10u BID - sliding scale - NPO - PPI drip - GI follow up - monitor CBC q6hr - GI ppx - DVT ppx, SCDs - Monitor in MICU
[2017-04-20] MEDS ORDERED: Dextrose 5%/0.45% NS 1,000 ML IV SCH ×2 (08:15→14:30)
[2017-04-20] MEDS ORDERED: Sodium Chloride 0.9% 1,000 ML IV SCH (08:15)
[2017-04-20 08:21] LABS: BLOOD UREA NITROGEN 59 mg/dL (7-21); CALCIUM 8.9 mg/dL (8.4-10.5); GFR AFRICAN-AMERICAN > 60; GFR NON-AFRICAN AMERICAN > 60; MAGNESIUM 2.3 mg/dL (1.7-2.2)
--- NOTE | 2017-04-20 09:02 | CARD ---
APPROVED REPORT EKG Measurement Heart [id number] <Conclusion> Sinus tachycardia Possible Left atrial enlargement Borderline ECG
[2017-04-20] MEDS: cefTRIAXone 2 GM IN NS 2 GM/100 ML BAG IVPB SCH (09:35)
--- NOTE | 2017-04-20 10:05 | RAD ---
HISTORY: medical clearance COMPARISON: No prior. FINDINGS: LUNGS: No active pulmonary disease. PLEURA: No significant pleural effusion identified, no pneumothorax apparent. CARDIOVASCULAR: Normal. OSSEOUS STRUCTURES: No significant abnormalities. VISUALIZED UPPER ABDOMEN: Normal. OTHER FINDINGS: None. IMPRESSION: No active disease.
--- NOTE | 2017-04-20 10:35 | RAD ---
PROCEDURE: Right Foot Radiographs. HISTORY: evaluate osteomyelitis right foot COMPARISON: None. FINDINGS: BONES: There has been amputation of the 5th metatarsal and toes. The fractures are seen at the base of the 2nd and 3rd metatarsals which have the appearance of a Charcot foot. There is fragmentation. There is no bony destruction to suggest osteomyelitis. JOINTS: Normal. SOFT TISSUES: Normal. OTHER FINDINGS: None. IMPRESSION: Chronic appearing fractures with fragmentation of the proximal 2nd and 3rd metatarsals consistent with Charcot foot
--- NOTE | 2017-04-20 11:24 | CP.PCM.PN ---
<Melvin Hathaway - Last Filed: 04/20/17 13:38> Subjective - Date & Time of Evaluation Date of Evaluation: 04/20/17 Time of Evaluation: 07:30 - Subjective Subjective: IM Progress Note for Hospitalist Service Patient seen and examined at bedside in ICU. No acute events reported overnight since admission. This AM, anion gap closed on labs, so patient is being transitioned from Insulin drip to long acting + sliding scale coverage. Remains NPO due to report of coffee-ground emesis and anemia requiring blood transfusion. Denies acute complaints, including chest pain, shortness of breath , further hematemesis, further emesis, diarrhea, melena, hematochezia, dysuria, hematuria, acute focal weakness, changes in vision, or room spinning sensation. Does reports some dizziness yesterday, now resolved, and some current nausea. Objective - Vital Signs/Intake and Output Vital Signs (last 24 hours): Temp Pulse Resp BP Pulse Ox 98.2 F 101 H 19 120/71 100 04/20/17 05:00 04/20/17 07:45 04/20/17 07:45 04/20/17 07:45 04/20/17 07:45 Intake and Output: 04/20/17 04/20/17 06:59 18:59 Intake Total 1757 0 Output Total 1700 Balance 57 0 - Medications Medications: Current Medications Acetaminophen (Tylenol 325 Mg Supp) 325 mg RC Q6 PRN PRN Reason: Fever >100.4 F Insulin Human Regular 100 (units/ Sodium Chloride) 100 mls @ 10 mls/hr IV .Q10H PRN; Protocol; 10 UNITS/HR PRN Reason: TITRATE PER MD ORDER Last Titration: 04/20/17 07:04 Dose: 4 units/hr, 4 mls/hr Pantoprazole Sodium (Protonix 40mg Ivpb) 40 mg in 100 mls @ 20 mls/hr IVPB .Q5H GABI Last Admin: 04/20/17 06:11 Dose: 20 mls/hr Ceftriaxone Sodium (Rocephin 2 Gm Ivpb) 2 gm in 100 mls @ 100 mls/hr IVPB DAILY GABI PRN Reason: Protocol Last Admin: 04/20/17 09:35 Dose: 100 mls/hr Sodium Chloride (Sodium Chloride 0.9%) 1,000 mls @ 150 mls/hr IV .Q6H40M [facility] Insulin Human Lispro (Humalog Med) 0 units SC Q4 GABI PRN Reason: Protocol Ondansetron HCl (Zofran Inj) 4 mg IVP Q4H PRN PRN Reason: Nausea/Vomiting - Labs Labs: 04/20/17 06:10 04/20/17 06:30 PT 11.9 SECONDS (9.4-12.5) 04/19/17 20:30 INR 1.04 (0.93-1.08) 04/19/17 20:30 APTT 27.0 Seconds (25.1-36.5) 04/19/17 20:30 - Constitutional Appears: Non-toxic, No Acute Distress, Older Than Stated Age - Head Exam Head Exam: ATRAUMATIC, NORMAL INSPECTION, NORMOCEPHALIC - Eye Exam Eye Exam: EOMI, Normal appearance. absent: Conjunctival injection, Scleral icterus Pupil Exam: absent: Irregular, Unequal - ENT Exam ENT Exam: Mucous Membranes Moist - Neck Exam Neck Exam: absent: Lymphadenopathy, Tenderness, Thyromegaly - Respiratory Exam Respiratory Exam: Clear to Ausculation Bilateral, NORMAL BREATHING PATTERN. absent: Chest Wall Tenderness, Rales, Rhonchi, Wheezes - Cardiovascular Exam Cardiovascular Exam: Tachycardia, REGULAR RHYTHM, +S1, +S2. absent: Bradycardia , Irregular Rhythm, JVD, RRR, +S4 - GI/Abdominal Exam GI & Abdominal Exam: Soft, Normal Bowel Sounds. absent: Distended, Firm, Guarding, Rigid, Tenderness, Mass, Rebound - Extremities Exam Extremities Exam: Pedal Edema (+1 pitting edema in bilateral LE from ankles to mid-ibanez). absent: Calf Tenderness, Joint Swelling, Tenderness Additional comments: right 5th metatarsal amputated, healing surgical scar site running along lateral aspect of foot - Neurological Exam Neurological Exam: Alert, Awake, Oriented x3 (x4 (self, location, year, president)) Additional comments: motor grossly intact and equal bilaterally, intact sensation in bilateral arms, decreased sensation in bilateral feet - Psychiatric Exam Psychiatric exam: Normal Affect, Normal Mood Additional comments: poor historian, poor recall of prior events - Skin Skin Exam: Dry, Intact (except for LE surgical scar as documented in extremities exam), Normal Color, Warm Assessment and Plan - Assessment and Plan (Free Text) Assessment: This is a 41 yo M with PMH of DM1 with multiple prior episodes of DKA , HTN, HLD, gastritis, recent dx of osteomyelitis (s/p R 5th metatarsal amputation), and GI bleed who presented to [facility] for fatigue, weakness, nausea, and reported episode of coffee-ground emesis. He was found to be in DKA with an elevated anion gap of 32 and severe anemia likely secondary to upper GI bleed suspected to be secondary to GI mass. Gap is now closed, patient has been switched from insulin drip to long-acting and sliding scale coverage, but remains on protonix drip for suspected GI bleed. Plan: 1) Coffee-ground emesis, hx of abdominal mass -likely upper GI bleed, has hx of GI bleed -found to have mass on EGD at [facility], also reports at least one EGD that was "bloody" -pending records from [facility] [place] to assess results of EGDs and any pathology of mass -continue Protonix gtt -continue NPO -GI (Dr. Macias) following, pending records from [facility] before any decision for scope -Transfused 2 units prbcs for low hgb in setting of suspected GI bleed, continue to trend H&H and transfuse further as needed 2) DKA -gap closed, gap 8 this AM -now transitioned from insulin drip to long-acting and sliding scale coverage -NPO due to GI bleed, continue D5 1/2 NS to prevent hypoglycemia with insulin coverage 3) Symptomatic anemia -patient reports dizziness, confusion, weakness -likely also contributory factor from DKA -s/p 2 units pRBCs, trending H&H and additional transfusions as necessary -most likely represents acute loss (likely GI) as not macro or micro-cytic -Iron panel to be obtained from admission labs, to assess need for iron store repletion 4) Hx Osteomyelitis -dx at [facility] [place], s/p PICC line, on Rocephin -s/p R 5th Metatarsal resection -X-ray shows R Charcot foot -ID consulted for Abx recs, Podiatry consulted for Charcot foot, appreciate all recs 5) Hyperkalemia - resolved -likely 2/2 DKA, resolved with insulin use 6) Hyponatremia - resolved -likely pseudohyponatremia 2/2 elevated glucose -corrected Na on admission 147 Dispo: ICU, s/p insulin drip, now on long acting + sliding scale, pending receipt of records from [facility], then additional GI recs FEN: NPO, D5 1/2 NS 100cc/hr Access: Peripheral IV's, PICC Consults: ICU, GI, ID, Podiatry Ppx: Protonix drip covers GI, SCDs for DVT, Avoid anticoagulation in setting of suspected bleeding Patient seen, reviewed, and examined with attending, Dr. Johnston. <Harshad Johnston - Last Filed: 04/20/17 15:47> Objective - Vital Signs/Intake and Output Vital Signs (last 24 hours): Temp Pulse Resp BP Pulse Ox 97.8 F 96 H 18 115/76 100 04/20/17 15:37 04/20/17 15:37 04/20/17 15:37 04/20/17 15:37 04/20/17 07:45 Intake and Output: 04/20/17 04/20/17 06:59 18:59 Intake Total 1757 5 Output Total 1700 Balance 57 5 - Medications Medications: Current Medications Acetaminophen (Tylenol 325 Mg Supp) 325 mg RC Q6 PRN PRN Reason: Fever >100.4 F Insulin Human Regular 100 (units/ Sodium Chloride) 100 mls @ 10 mls/hr IV .Q10H PRN; Protocol; 10 UNITS/HR PRN Reason: TITRATE PER MD ORDER Last Titration: 04/20/17 07:04 Dose: 4 units/hr, 4 mls/hr Pantoprazole Sodium (Protonix 40mg Ivpb) 40 mg in 100 mls @ 20 mls/hr IVPB .Q5H [facility] Last Admin: 04/20/17 06:11 Dose: 20 mls/hr Ceftriaxone Sodium (Rocephin 2 Gm Ivpb) 2 gm in 100 mls @ 100 mls/hr IVPB DAILY GABI PRN Reason: Protocol Last Admin: 04/20/17 09:35 Dose: 100 mls/hr Dextrose/Sodium Chloride (Dextrose 5%/0.45% Ns 1000 Ml) 1,000 mls @ 100 mls/hr IV .Q10H [facility] Insulin Human Lispro (Humalog Med) 0 units SC Q4 GABI PRN Reason: Protocol Ondansetron HCl (Zofran Inj) 4 mg IVP Q4H PRN PRN Reason: Nausea/Vomiting - Labs Labs: 04/20/17 12:00 04/20/17 12:00 PT 11.9 SECONDS (9.4-12.5) 04/19/17 20:30 INR 1.04 (0.93-1.08) 04/19/17 20:30 APTT 27.0 Seconds (25.1-36.5) 04/19/17 20:30 Attending/Attestation - Attestation I have personally seen and examined this patient.: Yes I have fully participated in the care of the patient.: Yes I have reviewed all pertinent clinical information, including history, physical exam and plan: Yes Notes (Text): 04/20/17 15:42 41 year old male with past medical history of diabetes, hypertension, gastritis , and recently diagnosed osteomyelitis on iv antibiotics who presented with DKI and GIB. He reports recent admission at [facility] [place] for GIB with EGD showed GI mass. Will attempt to receive and review records. He was started on iv fluids and insulin drip. Anion gap has closed and he was started on long acting insulin. Will continue to monitor. GI evaluation is requested. Continue with iv protonix. Will follow up with GI recommendations. Continue to monitor cbc closely and transfuse as needed. He is currently on iv ceftiaxone for history of osteomyelitis. ID is following. Xray was reviewed and podiatry evaluation is requested. He initially had SHON and hyperkalemia which have resolved. Harshad Johnston MD Hospitalist.
[2017-04-20] MEDS ORDERED: Insulin Lispro (humaLOG) MEDIUM Coverage SC SCH (11:30)
[2017-04-20] MEDS ORDERED: Insulin Regular 1 UNITS/0.01 ML ML SC SCH (11:30)
[2017-04-20 12:02] LABS: BARBITURATES, UR NEGATIVE (NEGATIVE); BENZODIAZEPINES, UR NEGATIVE (NEGATIVE); OPIATES, UR NEGATIVE (NEGATIVE); PHENCYCLIDINE, UR NEGATIVE (NEGATIVE)
[2017-04-20 12:09] LABS: HEMOGLOBIN 7.3 g/dL (14.0-18.0); MEAN CORPUSCULAR HEMOGLOBIN 30.4 pg (25.0-35.0); MEAN CORPUSCULAR HGB CONC 35.8 g/dl (31.0-37.0); MEAN PLATELET VOLUME 8.4 fl (7.0-11.0); RBC 2.4 10^6/uL (3.5-6.1); RED CELL DISTRIBUTION WIDTH 13.6 % (11.5-14.5); WHITE BLOOD COUNT 11.3 10^3/ul (4.5-11.0)
[2017-04-20 12:20] LABS: ALBUMIN 2.2 g/dL (3.0-4.8); ALT/SGPT 29 U/L (7-56); AST/SGOT 12 U/L (17-59); BLOOD UREA NITROGEN 41 mg/dL (7-21); CALCIUM 8.3 mg/dL (8.4-10.5); GFR AFRICAN-AMERICAN > 60; GFR NON-AFRICAN AMERICAN > 60
--- NOTE | 2017-04-20 12:23 | CP.PCM.CON ---
<Faisal Pinon - Last Filed: 04/20/17 12:17> History of Present Illness - History of Present Illness History of Present Illness: GI Consult Note - Dr. Macias HPI: 41 M with a PMHx of DM1, DKA, HTN, HLD, gastritis, recent dx of osteomyelitis on IV abx and history of GI bleed that presented to [facility] with complaints of fatigue, nausea and vomiting x 1 day. Patient stated that he was at home with his sister who is currently sick and felt that he had caught illness from her. He also described vomiting/coughing up dark coffee ground emesis that has since stopped. Pt was recently treated and discharged from [facility] for DKA, osteomyelitis of 5th metatarsal, gastritis and GI bleed. While at [facility] patient had PICC line placed for OM of right foot and started on rocephin. Patient also reports having upper endoscopy showing mass and striations in the esophagus. We will retrieve those reports for further analysis. Pt was seen and examined at bedside. He is feeling better than yesterday and is currently denying fever, chest pain, shortness of breath, abdominal pain, numbness, weakness. Pt denied any recent bowel movement and no signs of overt bleeding. PMHx: DM1, DKA, HTN, HLD, Glaucoma, Gastritis, OM, GI bleed PSHx: Toe amputation, appendectomy FMHx: Father: SD, Brother - stroke SHx: Tobacco: Former, 20 pack year history, ETOH: prior abuse 20 yr hx, ID: Cocaine, denies IVDA hx Meds: MAR reviewed Allergies: NKDA Review of Systems - Review of Systems Review of Systems: As per HPI otherwise negative Past Patient History - Past Social History Smoking Status: Never Smoked - CARDIAC Hx Cardiac Disorders: No - PULMONARY Hx Respiratory Disorders: No - NEUROLOGICAL Hx Neurological Disorder: No - HEENT Hx HEENT Problems: No - RENAL Hx Chronic Kidney Disease: No - ENDOCRINE/METABOLIC Hx Diabetes Mellitus Type 2: Yes - HEMATOLOGICAL/ONCOLOGICAL Hx Anemia: Yes - INTEGUMENTARY Hx Dermatological Problems: No - MUSCULOSKELETAL/RHEUMATOLOGICAL Hx Musculoskeletal Disorders: No - GASTROINTESTINAL Other/Comment: abnormal liver testing - GENITOURINARY/GYNECOLOGICAL Hx Genitourinary Disorders: No - PSYCHIATRIC Hx Psychophysiologic Disorder: No Hx Substance Use: No - SURGICAL HISTORY Hx Surgeries: Yes (SHANEKA PICC; single (4 weeks old).) Hx Amputation: Yes (Summer 2016; rt pinky toe; at [facility]) Hx Appendectomy: Yes (At 9 years old.) - ANESTHESIA Hx Anesthesia: Yes Meds Allergies/Adverse Reactions: Allergies Allergy/AdvReac Type Severity Reaction Status Date / Time No Known Allergies Allergy Verified 04/19/17 19:42 - Medications Medications: Current Medications Acetaminophen (Tylenol 325 Mg Supp) 325 mg RC Q6 PRN PRN Reason: Fever >100.4 F Insulin Human Regular 100 (units/ Sodium Chloride) 100 mls @ 10 mls/hr IV .Q10H PRN; Protocol; 10 UNITS/HR PRN Reason: TITRATE PER MD ORDER Last Titration: 04/20/17 07:04 Dose: 4 units/hr, 4 mls/hr Pantoprazole Sodium (Protonix 40mg Ivpb) 40 mg in 100 mls @ 20 mls/hr IVPB .Q5H GABI Last Admin: 04/20/17 06:11 Dose: 20 mls/hr Ceftriaxone Sodium (Rocephin 2 Gm Ivpb) 2 gm in 100 mls @ 100 mls/hr IVPB DAILY GABI PRN Reason: Protocol Last Admin: 04/20/17 09:35 Dose: 100 mls/hr Sodium Chloride (Sodium Chloride 0.9%) 1,000 mls @ 150 mls/hr IV .Q6H40M GABI Insulin Human Lispro (Humalog Med) 0 units SC Q4 GABI PRN Reason: Protocol Ondansetron HCl (Zofran Inj) 4 mg IVP Q4H PRN PRN Reason: Nausea/Vomiting Physical Exam - Constitutional Appears: No Acute Distress - Head Exam Head Exam: ATRAUMATIC, NORMAL INSPECTION, NORMOCEPHALIC - Eye Exam Eye Exam: EOMI, Normal appearance, PERRL Pupil Exam: NORMAL ACCOMODATION, PERRL - ENT Exam ENT Exam: Mucous Membranes Dry - Respiratory Exam Respiratory Exam: Clear to Auscultation Bilateral, NORMAL BREATHING PATTERN - Cardiovascular Exam Cardiovascular Exam: REGULAR RHYTHM, +S1, +S2 - GI/Abdominal Exam GI & Abdominal Exam: Normal Bowel Sounds, Soft. absent: Tenderness - Extremities Exam Additional comments: Rt foot bandaged - Neurological Exam Neurological exam: Alert, CN II-XII Intact, Oriented x3, Reflexes Normal - Psychiatric Exam Psychiatric exam: Normal Affect, Normal Mood - Skin Skin Exam: Dry, Intact, Normal Color, Warm Results - Vital Signs Recent Vital Signs: Last Vital Signs Temp 98.2 F 04/20/17 05:00 Pulse 101 H 04/20/17 07:45 Resp 19 04/20/17 07:45 BP 120/71 04/20/17 07:45 Pulse Ox 100 04/20/17 07:45 - Labs Result Diagrams: 04/20/17 06:10 04/20/17 06:30 Labs: Laboratory Results - last 24 hr 04/19/17 04/19/17 04/20/17 21:28 23:06 00:14 WBC RBC Hgb Hct MCV MCH MCHC RDW Plt Count MPV Gran % Lymph % (Auto) [place] % (Auto) Eos % (Auto) Baso % (Auto) Gran # Lymph # (Auto) [place] # (Auto) Eos # (Auto) Baso # (Auto) pO2 VBG pH VBG pCO2 VBG HCO3 VBG Total CO2 VBG O2 Sat (Calc) VBG Base Excess VBG Potassium Glucose Lactate FiO2 Sodium Potassium Chloride Carbon Dioxide Anion Gap BUN Creatinine Est GFR ( Amer) Est GFR (Non-Af Amer) POC Glucose (mg/dL) > 500 H* > 500 H* 491 H* Random Glucose Calcium Phosphorus Magnesium Total Bilirubin AST ALT Alkaline Phosphatase Total Protein Albumin Globulin Albumin/Globulin Ratio Venous Blood Potassium Urine Color Urine Appearance Urine pH Ur Specific [place]ons Urine Protein Urine Glucose (UA) Urine Ketones Urine Blood Urine Nitrate Urine Bilirubin Urine Urobilinogen Ur Leukocyte Esterase Urine Opiates Screen Urine Methadone Screen Ur Barbiturates Screen Ur Phencyclidine Scrn Ur Amphetamines Screen U Benzodiazepines Scrn U Oth Cocaine Metabols U Cannabinoids Screen Alcohol, Quantitative 04/20/17 04/20/17 04/20/17 00:35 01:05 02:20 WBC RBC Hgb Hct MCV MCH MCHC RDW Plt Count MPV Gran % Lymph % (Auto) [place] % (Auto) Eos % (Auto) Baso % (Auto) Gran # Lymph # (Auto) [place] # (Auto) Eos # (Auto) Baso # (Auto) pO2 VBG pH VBG pCO2 VBG HCO3 VBG Total CO2 VBG O2 Sat (Calc) VBG Base Excess VBG Potassium Glucose Lactate FiO2 Sodium 132 Potassium 4.8 Chloride 98 Carbon Dioxide 10 L D Anion Gap 29 H BUN 65 H Creatinine 1.5 Est GFR ( Amer) > 60 Est GFR (Non-Af Amer) 51 POC Glucose (mg/dL) 390 H 391 H Random Glucose 620 H* D Calcium 8.6 Phosphorus Magnesium Total Bilirubin AST ALT Alkaline Phosphatase Total Protein Albumin Globulin Albumin/Globulin Ratio Venous Blood Potassium Urine Color Urine Appearance Urine pH Ur Specific Parsons Urine Protein Urine Glucose (UA) Urine Ketones Urine Blood Urine Nitrate Urine Bilirubin Urine Urobilinogen Ur Leukocyte Esterase Urine Opiates Screen Urine Methadone Screen Ur Barbiturates Screen Ur Phencyclidine Scrn Ur Amphetamines Screen U Benzodiazepines Scrn U Oth Cocaine Metabols U Cannabinoids Screen Alcohol, Quantitative 04/20/17 04/20/17 04/20/17 03:04 04:21 05:16 WBC RBC Hgb Hct MCV MCH MCHC RDW Plt Count MPV Gran % Lymph % (Auto) [place] % (Auto) Eos % (Auto) Baso % (Auto) Gran # Lymph # (Auto) [place] # (Auto) Eos # (Auto) Baso # (Auto) pO2 VBG pH VBG pCO2 VBG HCO3 VBG Total CO2 VBG O2 Sat (Calc) VBG Base Excess VBG Potassium Glucose Lactate FiO2 Sodium Potassium Chloride Carbon Dioxide Anion Gap BUN Creatinine Est GFR ( Amer) Est GFR (Non-Af Amer) POC Glucose (mg/dL) 352 H 295 H 247 H Random Glucose Calcium Phosphorus Magnesium Total Bilirubin AST ALT Alkaline Phosphatase Total Protein Albumin Globulin Albumin/Globulin Ratio Venous Blood Potassium Urine Color Urine Appearance Urine pH Ur Specific Parsons Urine Protein Urine Glucose (UA) Urine Ketones Urine Blood Urine Nitrate Urine Bilirubin Urine Urobilinogen Ur Leukocyte Esterase Urine Opiates Screen Urine Methadone Screen Ur Barbiturates Screen Ur Phencyclidine Scrn Ur Amphetamines Screen U Benzodiazepines Scrn U Oth Cocaine Metabols U Cannabinoids Screen Alcohol, Quantitative 04/20/17 04/20/17 04/20/17 06:00 06:10 06:10 WBC 8.0 RBC 2.61 L Hgb 7.8 L Hct 22.3 L MCV 85.4 D MCH 29.9 MCHC 35.0 RDW 13.4 Plt Count 385 MPV 8.5 Gran % 54.4 Lymph % (Auto) 28.7 [place] % (Auto) 16.3 H Eos % (Auto) 0.4 L Baso % (Auto) 0.2 Gran # 4.36 Lymph # (Auto) 2.3 [place] # (Auto) 1.3 H Eos # (Auto) 0.0 Baso # (Auto) 0.02 pO2 50 VBG pH 7.29 L VBG pCO2 43.0 VBG HCO3 20.7 L VBG Total CO2 22.0 VBG O2 Sat (Calc) 92.2 H VBG Base Excess -5.7 L VBG Potassium 4.5 Glucose 277 H Lactate 0.9 FiO2 21.0 Sodium 137.0 Potassium Chloride 111.0 H Carbon Dioxide Anion Gap BUN Creatinine Est GFR ( Amer) Est GFR (Non-Af Amer) POC Glucose (mg/dL) Random Glucose Calcium Phosphorus Magnesium Total Bilirubin AST ALT Alkaline Phosphatase Total Protein Albumin Globulin Albumin/Globulin Ratio Venous Blood Potassium 4.5 Urine Color Light yellow Urine Appearance Clear Urine pH 5.5 Ur Specific Parsons 1.010 Urine Protein Negative Urine Glucose (UA) >=1000 Urine Ketones >=80 Urine Blood Negative Urine Nitrate Negative Urine Bilirubin Negative Urine Urobilinogen 0.2 Ur Leukocyte Esterase Negative Urine Opiates Screen Urine Methadone Screen Ur Barbiturates Screen Ur Phencyclidine Scrn Ur Amphetamines Screen U Benzodiazepines Scrn U Oth Cocaine Metabols U Cannabinoids Screen Alcohol, Quantitative 04/20/17 04/20/17 04/20/17 06:10 06:30 06:34 WBC RBC Hgb Hct MCV MCH MCHC RDW Plt Count MPV Gran % Lymph % (Auto) [place] % (Auto) Eos % (Auto) Baso % (Auto) Gran # Lymph # (Auto) [place] # (Auto) Eos # (Auto) Baso # (Auto) pO2 VBG pH VBG pCO2 VBG HCO3 VBG Total CO2 VBG O2 Sat (Calc) VBG Base Excess VBG Potassium Glucose Lactate FiO2 Sodium 139 138 Potassium 4.3 4.6 Chloride 108 H 108 H Carbon Dioxide 22 22 Anion Gap 14 13 BUN 57 H 59 H Creatinine 1.1 1.1 Est GFR ( Amer) > 60 > 60 Est GFR (Non-Af Amer) > 60 > 60 POC Glucose (mg/dL) 224 H Random Glucose 263 H 256 H Calcium 8.9 8.9 Phosphorus 2.5 Magnesium 2.3 H Total Bilirubin 0.3 AST 24 ALT 19 Alkaline Phosphatase 56 Total Protein 4.7 L Albumin 2.3 L Globulin 2.4 Albumin/Globulin Ratio 1.0 L Venous Blood Potassium Urine Color Urine Appearance Urine pH Ur Specific Parsons Urine Protein Urine Glucose (UA) Urine Ketones Urine Blood Urine Nitrate Urine Bilirubin Urine Urobilinogen Ur Leukocyte Esterase Urine Opiates Screen Urine Methadone Screen Ur Barbiturates Screen Ur Phencyclidine Scrn Ur Amphetamines Screen U Benzodiazepines Scrn U Oth Cocaine Metabols U Cannabinoids Screen Alcohol, Quantitative 04/20/17 04/20/17 04/20/17 07:02 07:30 09:15 WBC RBC Hgb Hct MCV MCH MCHC RDW Plt Count MPV Gran % Lymph % (Auto) [place] % (Auto) Eos % (Auto) Baso % (Auto) Gran # Lymph # (Auto) [place] # (Auto) Eos # (Auto) Baso # (Auto) pO2 VBG pH VBG pCO2 VBG HCO3 VBG Total CO2 VBG O2 Sat (Calc) VBG Base Excess VBG Potassium Glucose Lactate FiO2 Sodium Potassium Chloride Carbon Dioxide Anion Gap BUN Creatinine Est GFR ( Amer) Est GFR (Non-Af Amer) POC Glucose (mg/dL) 213 H 162 H Random Glucose Calcium Phosphorus Magnesium Total Bilirubin AST ALT Alkaline Phosphatase Total Protein Albumin Globulin Albumin/Globulin Ratio Venous Blood Potassium Urine Color Urine Appearance Urine pH Ur Specific Parsons Urine Protein Urine Glucose (UA) Urine Ketones Urine Blood Urine Nitrate Urine Bilirubin Urine Urobilinogen Ur Leukocyte Esterase Urine Opiates Screen Urine Methadone Screen Ur Barbiturates Screen Ur Phencyclidine Scrn Ur Amphetamines Screen U Benzodiazepines Scrn U Oth Cocaine Metabols U Cannabinoids Screen Alcohol, Quantitative < 10 04/20/17 04/20/17 11:02 11:30 WBC RBC Hgb Hct MCV MCH MCHC RDW Plt Count MPV Gran % Lymph % (Auto) [place] % (Auto) Eos % (Auto) Baso % (Auto) Gran # Lymph # (Auto) [place] # (Auto) Eos # (Auto) Baso # (Auto) pO2 VBG pH VBG pCO2 VBG HCO3 VBG Total CO2 VBG O2 Sat (Calc) VBG Base Excess VBG Potassium Glucose Lactate FiO2 Sodium Potassium Chloride Carbon Dioxide Anion Gap BUN Creatinine Est GFR ( Amer) Est GFR (Non-Af Amer) POC Glucose (mg/dL) 137 H Random Glucose Calcium Phosphorus Magnesium Total Bilirubin AST ALT Alkaline Phosphatase Total Protein Albumin Globulin Albumin/Globulin Ratio Venous Blood Potassium Urine Color Urine Appearance Urine pH Ur Specific Parsons Urine Protein Urine Glucose (UA) Urine Ketones Urine Blood Urine Nitrate Urine Bilirubin Urine Urobilinogen Ur Leukocyte Esterase Urine Opiates Screen Negative Urine Methadone Screen Negative Ur Barbiturates Screen Negative Ur Phencyclidine Scrn Negative Ur Amphetamines Screen Negative U Benzodiazepines Scrn Negative U Oth Cocaine Metabols Negative U Cannabinoids Screen Negative Alcohol, Quantitative Assessment & Plan - Assessment and Plan (Free Text) Assessment: 41 M with a PMHx of DM1, DKA, HTN, HLD, gastritis, recent dx of osteomyelitis on IV abx and history of GI bleed that presented to [facility] with complaints of fatigue, nausea and vomiting x 1 day admitted to ICU for DKA with a AGAP of 32 that has since closed and has switched from insulin drip to SC insulin and continue IVF. Pt also found to have symptomatic severe anemia, we will retrieve medical records from [facility] for further analysis of previous upper GI bleed suspected to be secondary to GI mass. VSS. Patient is continued on protonix gtt and s/p 2 units blood transfusion with appropriate response, will continue to monitor H&H. Continue IV abx for OM of foot. Continue to keep NPO for anemia/ GIB workup. <Susu Macias V - Last Filed: 04/20/17 22:29> Meds - Medications Medications: Current Medications Acetaminophen (Tylenol 325 Mg Supp) 325 mg RC Q6 PRN PRN Reason: Fever >100.4 F Insulin Human Regular 100 (units/ Sodium Chloride) 100 mls @ 10 mls/hr IV .Q10H PRN; Protocol; 10 UNITS/HR PRN Reason: TITRATE PER MD ORDER Last Titration: 04/20/17 07:04 Dose: 4 units/hr, 4 mls/hr Pantoprazole Sodium (Protonix 40mg Ivpb) 40 mg in 100 mls @ 20 mls/hr IVPB .Q5H GABI Last Admin: 04/20/17 21:44 Dose: 20 mls/hr Ceftriaxone Sodium (Rocephin 2 Gm Ivpb) 2 gm in 100 mls @ 100 mls/hr IVPB DAILY GABI PRN Reason: Protocol Last Admin: 04/20/17 09:35 Dose: 100 mls/hr Sodium Chloride (Sodium Chloride 0.9%) 1,000 mls @ 100 mls/hr IV .Q10H GABI Insulin Human Lispro (Humalog Med) 0 units SC Q4 GABI PRN Reason: Protocol Last Admin: 04/20/17 21:33 Dose: Not Given Mupirocin (Bactroban Ointment) 0 gm TOP BID GABI Ondansetron HCl (Zofran Inj) 4 mg IVP Q4H PRN PRN Reason: Nausea/Vomiting Results - Vital Signs Recent Vital Signs: Last Vital Signs Temp 97.8 F 04/20/17 17:08 Pulse 94 H 04/20/17 17:50 Resp 15 04/20/17 17:50 BP 119/72 04/20/17 17:45 Pulse Ox 100 04/20/17 17:50 - Labs Result Diagrams: 04/20/17 18:24 04/20/17 12:00 Labs: Laboratory Results - last 24 hr 04/19/17 04/20/17 04/20/17 23:06 00:14 00:35 WBC RBC Hgb Hct MCV MCH MCHC RDW Plt Count MPV Gran % Lymph % (Auto) [place] % (Auto) Eos % (Auto) Baso % (Auto) Gran # Lymph # (Auto) [place] # (Auto) Eos # (Auto) Baso # (Auto) ESR pO2 VBG pH VBG pCO2 VBG HCO3 VBG Total CO2 VBG O2 Sat (Calc) VBG Base Excess VBG Potassium Glucose Lactate FiO2 Sodium 132 Potassium 4.8 Chloride 98 Carbon Dioxide 10 L D Anion Gap 29 H BUN 65 H Creatinine 1.5 Est GFR ( Amer) > 60 Est GFR (Non-Af Amer) 51 POC Glucose (mg/dL) > 500 H* 491 H* Random Glucose 620 H* D Hemoglobin A1c Calcium 8.6 Phosphorus Magnesium Iron TIBC % Saturation Total Bilirubin AST ALT Alkaline Phosphatase C-React Prot High Sens Total Protein Albumin Globulin Albumin/Globulin Ratio Venous Blood Potassium Urine Color Urine Appearance Urine pH Ur Specific [place]ons Urine Protein Urine Glucose (UA) Urine Ketones Urine Blood Urine Nitrate Urine Bilirubin Urine Urobilinogen Ur Leukocyte Esterase Urine Opiates Screen Urine Methadone Screen Ur Barbiturates Screen Ur Phencyclidine Scrn Ur Amphetamines Screen U Benzodiazepines Scrn U Oth Cocaine Metabols U Cannabinoids Screen Alcohol, Quantitative 04/20/17 04/20/17 04/20/17 01:05 02:20 03:04 WBC RBC Hgb Hct MCV MCH MCHC RDW Plt Count MPV Gran % Lymph % (Auto) [place] % (Auto) Eos % (Auto) Baso % (Auto) Gran # Lymph # (Auto) [place] # (Auto) Eos # (Auto) Baso # (Auto) ESR pO2 VBG pH VBG pCO2 VBG HCO3 VBG Total CO2 VBG O2 Sat (Calc) VBG Base Excess VBG Potassium Glucose Lactate FiO2 Sodium Potassium Chloride Carbon Dioxide Anion Gap BUN Creatinine Est GFR ( Amer) Est GFR (Non-Af Amer) POC Glucose (mg/dL) 390 H 391 H 352 H Random Glucose Hemoglobin A1c Calcium Phosphorus Magnesium Iron TIBC % Saturation Total Bilirubin AST ALT Alkaline Phosphatase C-React Prot High Sens Total Protein Albumin Globulin Albumin/Globulin Ratio Venous Blood Potassium Urine Color Urine Appearance Urine pH Ur Specific Parsons Urine Protein Urine Glucose (UA) Urine Ketones Urine Blood Urine Nitrate Urine Bilirubin Urine Urobilinogen Ur Leukocyte Esterase Urine Opiates Screen Urine Methadone Screen Ur Barbiturates Screen Ur Phencyclidine Scrn Ur Amphetamines Screen U Benzodiazepines Scrn U Oth Cocaine Metabols U Cannabinoids Screen Alcohol, Quantitative 04/20/17 04/20/17 04/20/17 04:21 05:16 06:00 WBC RBC Hgb Hct MCV MCH MCHC RDW Plt Count MPV Gran % Lymph % (Auto) [place] % (Auto) Eos % (Auto) Baso % (Auto) Gran # Lymph # (Auto) [place] # (Auto) Eos # (Auto) Baso # (Auto) ESR pO2 VBG pH VBG pCO2 VBG HCO3 VBG Total CO2 VBG O2 Sat (Calc) VBG Base Excess VBG Potassium Glucose Lactate FiO2 Sodium Potassium Chloride Carbon Dioxide Anion Gap BUN Creatinine Est GFR ( Amer) Est GFR (Non-Af Amer) POC Glucose (mg/dL) 295 H 247 H Random Glucose Hemoglobin A1c Calcium Phosphorus Magnesium Iron TIBC % Saturation Total Bilirubin AST ALT Alkaline Phosphatase C-React Prot High Sens Total Protein Albumin Globulin Albumin/Globulin Ratio Venous Blood Potassium Urine Color Light yellow Urine Appearance Clear Urine pH 5.5 Ur Specific Parsons 1.010 Urine Protein Negative Urine Glucose (UA) >=1000 Urine Ketones >=80 Urine Blood Negative Urine Nitrate Negative Urine Bilirubin Negative Urine Urobilinogen 0.2 Ur Leukocyte Esterase Negative Urine Opiates Screen Urine Methadone Screen Ur Barbiturates Screen Ur Phencyclidine Scrn Ur Amphetamines Screen U Benzodiazepines Scrn U Oth Cocaine Metabols U Cannabinoids Screen Alcohol, Quantitative 04/20/17 04/20/17 04/20/17 06:10 06:10 06:10 WBC 8.0 RBC 2.61 L Hgb 7.8 L Hct 22.3 L MCV 85.4 D MCH 29.9 MCHC 35.0 RDW 13.4 Plt Count 385 MPV 8.5 Gran % 54.4 Lymph % (Auto) 28.7 [place] % (Auto) 16.3 H Eos % (Auto) 0.4 L Baso % (Auto) 0.2 Gran # 4.36 Lymph # (Auto) 2.3 [place] # (Auto) 1.3 H Eos # (Auto) 0.0 Baso # (Auto) 0.02 ESR pO2 50 VBG pH 7.29 L VBG pCO2 43.0 VBG HCO3 20.7 L VBG Total CO2 22.0 VBG O2 Sat (Calc) 92.2 H VBG Base Excess -5.7 L VBG Potassium 4.5 Glucose 277 H Lactate 0.9 FiO2 21.0 Sodium 137.0 139 Potassium 4.3 Chloride 111.0 H 108 H Carbon Dioxide 22 Anion Gap 14 BUN 57 H Creatinine 1.1 Est GFR ( Amer) > 60 Est GFR (Non-Af Amer) > 60 POC Glucose (mg/dL) Random Glucose 263 H Hemoglobin A1c Calcium 8.9 Phosphorus Magnesium Iron TIBC % Saturation Total Bilirubin 0.3 AST 24 ALT 19 Alkaline Phosphatase 56 C-React Prot High Sens Total Protein 4.7 L Albumin 2.3 L Globulin 2.4 Albumin/Globulin Ratio 1.0 L Venous Blood Potassium 4.5 Urine Color Urine Appearance Urine pH Ur Specific Parsons Urine Protein Urine Glucose (UA) Urine Ketones Urine Blood Urine Nitrate Urine Bilirubin Urine Urobilinogen Ur Leukocyte Esterase Urine Opiates Screen Urine Methadone Screen Ur Barbiturates Screen Ur Phencyclidine Scrn Ur Amphetamines Screen U Benzodiazepines Scrn U Oth Cocaine Metabols U Cannabinoids Screen Alcohol, Quantitative 04/20/17 04/20/17 04/20/17 06:30 06:30 06:34 WBC RBC Hgb Hct MCV MCH MCHC RDW Plt Count MPV Gran % Lymph % (Auto) [place] % (Auto) Eos % (Auto) Baso % (Auto) Gran # Lymph # (Auto) [place] # (Auto) Eos # (Auto) Baso # (Auto) ESR pO2 VBG pH VBG pCO2 VBG HCO3 VBG Total CO2 VBG O2 Sat (Calc) VBG Base Excess VBG Potassium Glucose Lactate FiO2 Sodium 138 Potassium 4.6 Chloride 108 H Carbon Dioxide 22 Anion Gap 13 BUN 59 H Creatinine 1.1 Est GFR ( Amer) > 60 Est GFR (Non-Af Amer) > 60 POC Glucose (mg/dL) 224 H Random Glucose 256 H Hemoglobin A1c 8.2 H Calcium 8.9 Phosphorus 2.5 Magnesium 2.3 H Iron TIBC % Saturation Total Bilirubin AST ALT Alkaline Phosphatase C-React Prot High Sens Total Protein Albumin Globulin Albumin/Globulin Ratio Venous Blood Potassium Urine Color Urine Appearance Urine pH Ur Specific [place] Urine Protein Urine Glucose (UA) Urine Ketones Urine Blood Urine Nitrate Urine Bilirubin Urine Urobilinogen Ur Leukocyte Esterase Urine Opiates Screen Urine Methadone Screen Ur Barbiturates Screen Ur Phencyclidine Scrn Ur Amphetamines Screen U Benzodiazepines Scrn U Oth Cocaine Metabols U Cannabinoids Screen Alcohol, Quantitative 04/20/17 04/20/17 04/20/17 07:02 07:30 09:15 WBC RBC Hgb Hct MCV MCH MCHC RDW Plt Count MPV Gran % Lymph % (Auto) [place] % (Auto) Eos % (Auto) Baso % (Auto) Gran # Lymph # (Auto) [place] # (Auto) Eos # (Auto) Baso # (Auto) ESR pO2 VBG pH VBG pCO2 VBG HCO3 VBG Total CO2 VBG O2 Sat (Calc) VBG Base Excess VBG Potassium Glucose Lactate FiO2 Sodium Potassium Chloride Carbon Dioxide Anion Gap BUN Creatinine Est GFR ( Amer) Est GFR (Non-Af Amer) POC Glucose (mg/dL) 213 H 162 H Random Glucose Hemoglobin A1c Calcium Phosphorus Magnesium Iron TIBC % Saturation Total Bilirubin AST ALT Alkaline Phosphatase C-React Prot High Sens Total Protein Albumin Globulin Albumin/Globulin Ratio Venous Blood Potassium Urine Color Urine Appearance Urine pH Ur Specific [place]ons Urine Protein Urine Glucose (UA) Urine Ketones Urine Blood Urine Nitrate Urine Bilirubin Urine Urobilinogen Ur Leukocyte Esterase Urine Opiates Screen Urine Methadone Screen Ur Barbiturates Screen Ur Phencyclidine Scrn Ur Amphetamines Screen U Benzodiazepines Scrn U Oth Cocaine Metabols U Cannabinoids Screen Alcohol, Quantitative < 10 04/20/17 04/20/17 04/20/17 11:02 11:30 12:00 WBC RBC Hgb Hct MCV MCH MCHC RDW Plt Count MPV Gran % Lymph % (Auto) [place] % (Auto) Eos % (Auto) Baso % (Auto) Gran # Lymph # (Auto) [place] # (Auto) Eos # (Auto) Baso # (Auto) ESR pO2 VBG pH VBG pCO2 VBG HCO3 VBG Total CO2 VBG O2 Sat (Calc) VBG Base Excess VBG Potassium Glucose Lactate FiO2 Sodium Potassium Chloride Carbon Dioxide Anion Gap BUN Creatinine Est GFR ( Amer) Est GFR (Non-Af Amer) POC Glucose (mg/dL) 137 H Random Glucose Hemoglobin A1c Calcium Phosphorus Magnesium Iron TIBC % Saturation Total Bilirubin AST ALT Alkaline Phosphatase C-React Prot High Sens > 15.00 H Total Protein Albumin Globulin Albumin/Globulin Ratio Venous Blood Potassium Urine Color Urine Appearance Urine pH Ur Specific Parsons Urine Protein Urine Glucose (UA) Urine Ketones Urine Blood Urine Nitrate Urine Bilirubin Urine Urobilinogen Ur Leukocyte Esterase Urine Opiates Screen Negative Urine Methadone Screen Negative Ur Barbiturates Screen Negative Ur Phencyclidine Scrn Negative Ur Amphetamines Screen Negative U Benzodiazepines Scrn Negative U Oth Cocaine Metabols Negative U Cannabinoids Screen Negative Alcohol, Quantitative 04/20/17 04/20/17 04/20/17 12:00 12:00 14:21 WBC 11.3 H D RBC 2.40 L Hgb 7.3 L Hct 20.4 L* MCV 85.0 MCH 30.4 MCHC 35.8 RDW 13.6 Plt Count 381 MPV 8.4 Gran % Lymph % (Auto) [place] % (Auto) Eos % (Auto) Baso % (Auto) Gran # Lymph # (Auto) [place] # (Auto) Eos # (Auto) Baso # (Auto) ESR 20 H pO2 VBG pH VBG pCO2 VBG HCO3 VBG Total CO2 VBG O2 Sat (Calc) VBG Base Excess VBG Potassium Glucose Lactate FiO2 Sodium 142 Potassium 4.0 Chloride 112 H Carbon Dioxide 21 Anion Gap 14 BUN 41 H Creatinine 0.9 Est GFR ( Amer) > 60 Est GFR (Non-Af Amer) > 60 POC Glucose (mg/dL) 122 H Random Glucose 129 H Hemoglobin A1c Calcium 8.3 L Phosphorus Magnesium Iron TIBC % Saturation Total Bilirubin 0.1 L AST 12 L D ALT 29 Alkaline Phosphatase 48 C-React Prot High Sens Total Protein 4.4 L Albumin 2.2 L Globulin 2.2 Albumin/Globulin Ratio 1.0 L Venous Blood Potassium Urine Color Urine Appearance Urine pH Ur Specific [place]ons Urine Protein Urine Glucose (UA) Urine Ketones Urine Blood Urine Nitrate Urine Bilirubin Urine Urobilinogen Ur Leukocyte Esterase Urine Opiates Screen Urine Methadone Screen Ur Barbiturates Screen Ur Phencyclidine Scrn Ur Amphetamines Screen U Benzodiazepines Scrn U Oth Cocaine Metabols U Cannabinoids Screen Alcohol, Quantitative 04/20/17 04/20/17 18:24 18:24 WBC RBC Hgb 8.3 L Hct 23.5 L MCV MCH MCHC RDW Plt Count MPV Gran % Lymph % (Auto) [place] % (Auto) Eos % (Auto) Baso % (Auto) Gran # Lymph # (Auto) [place] # (Auto) Eos # (Auto) Baso # (Auto) ESR pO2 VBG pH VBG pCO2 VBG HCO3 VBG Total CO2 VBG O2 Sat (Calc) VBG Base Excess VBG Potassium Glucose Lactate FiO2 Sodium Potassium Chloride Carbon Dioxide Anion Gap BUN Creatinine Est GFR ( Amer) Est GFR (Non-Af Amer) POC Glucose (mg/dL) Random Glucose Hemoglobin A1c Calcium Phosphorus Magnesium Iron 115 TIBC 186 L % Saturation 62 H Total Bilirubin AST ALT Alkaline Phosphatase C-React Prot High Sens Total Protein Albumin Globulin Albumin/Globulin Ratio Venous Blood Potassium Urine Color Urine Appearance Urine pH Ur Specific [place] Urine Protein Urine Glucose (UA) Urine Ketones Urine Blood Urine Nitrate Urine Bilirubin Urine Urobilinogen Ur Leukocyte Esterase Urine Opiates Screen Urine Methadone Screen Ur Barbiturates Screen Ur Phencyclidine Scrn Ur Amphetamines Screen U Benzodiazepines Scrn U Oth Cocaine Metabols U Cannabinoids Screen Alcohol, Quantitative Attending/Attestation - Attestation I have personally seen and examined this patient.: Yes I have fully participated in the care of the patient.: Yes I have reviewed all pertinent clinical information: Yes Notes (Text): This is an addendum to GI consult report dictated by the [employer].The patient was seen and examined earlier. Medical records, lab studies, imagings were reviewed. Last 24 hours events reviewed. Agreed with the above treatment plan as outlined in [employer] 's notes the with the addition of the following Patient was admitted with asymptomatic normocytic anemia severe and DKA He had a endoscopy twice during his last recent admission in the [facility] Patient's iron saturation 60% probably due to posttransfusion Recommend to follow 1.the hemoglobin and hematocrit 2. Continue PPI 3. Get records from the [facility] before considering any further GI workup 04/20/17 22:25
[2017-04-20] MEDS ORDERED: Sodium Chloride 0.9% 1,000 ML IV STA (12:59)
--- NOTE | 2017-04-20 15:09 | CP.PCM.CON ---
History of Present Illness - History of Present Illness History of Present Illness: 41 year old male with PMH of DM, HTN, dyslipidemia, gastritis, recent diagnosis of osteomyelitis of the right foot, S/P appendectomy and was being treated with Rocephin at [facility] came in to [facility] because of nausea and vomiting with coffee-ground emesis. He was recently at [facility] for diabetic ketoacidosis. He apparently had an EGD done there which showed findings in the esophagus. He is currently on IV antibiotics for possible osteomyelitis of the right foot. He denies fever or chills, no nausea currently, no headache or dizziness, no chest pain, no SOB, no abdominal pain, no sore throat, no cough or colds, no diarrhea, no dysuria. Infectious Diseases consult is requested to further evaluate and manage. Review of Systems - Review of Systems All systems: reviewed and no additional remarkable complaints except (as per HPI ) Past Patient History - Past Social History Smoking Status: Never Smoked - CARDIAC Hx Cardiac Disorders: No - PULMONARY Hx Respiratory Disorders: No - NEUROLOGICAL Hx Neurological Disorder: No - HEENT Hx HEENT Problems: No - RENAL Hx Chronic Kidney Disease: No - ENDOCRINE/METABOLIC Hx Diabetes Mellitus Type 2: Yes - HEMATOLOGICAL/ONCOLOGICAL Hx Anemia: Yes - INTEGUMENTARY Hx Dermatological Problems: No - MUSCULOSKELETAL/RHEUMATOLOGICAL Hx Musculoskeletal Disorders: No - GASTROINTESTINAL Other/Comment: abnormal liver testing - GENITOURINARY/GYNECOLOGICAL Hx Genitourinary Disorders: No - PSYCHIATRIC Hx Psychophysiologic Disorder: No Hx Substance Use: No - SURGICAL HISTORY Hx Surgeries: Yes (SHANEKA PICC; single (4 weeks old).) Hx Amputation: Yes (Summer 2016; rt pinky toe; at [facility]) Hx Appendectomy: Yes (At 9 years old.) - ANESTHESIA Hx Anesthesia: Yes Meds Allergies/Adverse Reactions: Allergies Allergy/AdvReac Type Severity Reaction Status Date / Time No Known Allergies Allergy Verified 04/19/17 19:42 - Medications Medications: Current Medications Acetaminophen (Tylenol 325 Mg Supp) 325 mg RC Q6 PRN PRN Reason: Fever >100.4 F Insulin Human Regular 100 (units/ Sodium Chloride) 100 mls @ 10 mls/hr IV .Q10H PRN; Protocol; 10 UNITS/HR PRN Reason: TITRATE PER MD ORDER Last Titration: 04/20/17 04:00 Dose: 6 units/hr, 6 mls/hr Sodium Chloride (Sodium Chloride 0.9%) 1,000 mls @ 150 mls/hr IV .Q6H40M [facility] Last Admin: 04/20/17 05:43 Dose: 150 mls/hr Pantoprazole Sodium (Protonix 40mg Ivpb) 40 mg in 100 mls @ 20 mls/hr IVPB .Q5H [facility] Last Admin: 04/20/17 06:11 Dose: 20 mls/hr Ceftriaxone Sodium (Rocephin 2 Gm Ivpb) 2 gm in 100 mls @ 100 mls/hr IVPB DAILY GABI PRN Reason: Protocol Ondansetron HCl (Zofran Inj) 4 mg IVP Q4H PRN PRN Reason: Nausea/Vomiting Physical Exam - Constitutional Appears: Chronically Ill - Head Exam Head Exam: NORMAL INSPECTION - ENT Exam ENT Exam: Mucous Membranes Moist - Neck Exam Neck exam: Negative for: Meningismus - Respiratory Exam Respiratory Exam: Decreased Breath Sounds - Cardiovascular Exam Cardiovascular Exam: +S1, +S2 - GI/Abdominal Exam GI & Abdominal Exam: Soft. absent: Tenderness - Extremities Exam Additional comments: right foot with dressings in place Results - Vital Signs Recent Vital Signs: Last Vital Signs Temp 98.4 F 04/20/17 04:10 Pulse 98 H 04/20/17 04:10 Resp 16 04/20/17 04:10 BP 104/50 L 04/20/17 04:10 Pulse Ox 100 04/20/17 03:00 - Labs Result Diagrams: 04/20/17 12:00 04/20/17 12:00 Labs: Laboratory Results - last 24 hr 04/19/17 04/19/17 04/20/17 21:28 23:06 00:14 Sodium Potassium Chloride Carbon Dioxide Anion Gap BUN Creatinine Est GFR ( Amer) Est GFR (Non-Af Amer) POC Glucose (mg/dL) > 500 H* > 500 H* 491 H* Random Glucose Calcium 04/20/17 04/20/17 04/20/17 00:35 01:05 02:20 Sodium 132 Potassium 4.8 Chloride 98 Carbon Dioxide 10 L D Anion Gap 29 H BUN 65 H Creatinine 1.5 Est GFR ( Amer) > 60 Est GFR (Non-Af Amer) 51 POC Glucose (mg/dL) 390 H 391 H Random Glucose 620 H* D Calcium 8.6 04/20/17 04/20/17 04/20/17 03:04 04:21 05:16 Sodium Potassium Chloride Carbon Dioxide Anion Gap BUN Creatinine Est GFR ( Amer) Est GFR (Non-Af Amer) POC Glucose (mg/dL) 352 H 295 H 247 H Random Glucose Calcium Assessment & Plan - Assessment and Plan (Free Text) Plan: Assessment Possible right foot osteomyelitis in this patient with Charcot foot of the right , currently on antibiotics coffee-ground emesis, etiology to be determined DM HTN dyslipidemia gastritis recent diagnosis of osteomyelitis of the right foot S/P appendectomy Plan Continue IV Rocephin for now and will follow up the records from [facility] - patient claims he was first seen in [facility] but we currently have no records - will follow up will monitor clinically
[2017-04-20] MEDS: Insulin Lispro (humaLOG) MEDIUM Coverage SC SCH ×3 (16:00→21:33)
[2017-04-20 18:27] LABS: HEMOGLOBIN 8.3 g/dL (14.0-18.0)
[2017-04-20 18:41] LABS: IRON 115 ug/dL (45-180)
[2017-04-20 18:50] LABS: % IRON SATURATION 62 % (20-55); TOTAL IRON BINDING CAPACITY 186 ug/dL (261-462)
--- NOTE | 2017-04-20 20:41 | CP.PCM.CON ---
History of Present Illness - History of Present Illness History of Present Illness: Podiatry Consult Note - Dr. Page 41M PMHx DM1, previous episodes of DKA, HTN, HLD, gastritis, hx OM, GI bleed, seen and evaluated at bedside in ICU for right foot ulceration. Patient resting in bed comfortably, NAD. 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 Patient states the amputation healed uneventfully and was able to return to work, [employer] in regular shoes; however, approximately 1 month ago he developed a blister on the side of his foot which he believes was due to friction while wearing his work shoes. Patient reports the blister turned into an infected ulceration; states he has been seeing Dr. Burns on an outpatient basis, and he started the patient on IV abx at home (unable to recall name of abx). Patient admits the wound has not improved since beginning abx. Currently, patient denies any pain to his right foot wound. Offers no other pedal complaints. Currently denies N/V/F/D/C/SOB. Review of Systems - Review of Systems All systems: reviewed and no additional remarkable complaints except (as per HPI ) Past Patient History - Past Social History Smoking Status: Never Smoked - CARDIAC Hx Cardiac Disorders: No - PULMONARY Hx Respiratory Disorders: No - NEUROLOGICAL Hx Neurological Disorder: No - HEENT Hx HEENT Problems: No - RENAL Hx Chronic Kidney Disease: No - ENDOCRINE/METABOLIC Hx Diabetes Mellitus Type 2: Yes - HEMATOLOGICAL/ONCOLOGICAL Hx Anemia: Yes - INTEGUMENTARY Hx Dermatological Problems: No - MUSCULOSKELETAL/RHEUMATOLOGICAL Hx Musculoskeletal Disorders: No - GASTROINTESTINAL Other/Comment: abnormal liver testing - GENITOURINARY/GYNECOLOGICAL Hx Genitourinary Disorders: No - PSYCHIATRIC Hx Psychophysiologic Disorder: No Hx Substance Use: No - SURGICAL HISTORY Hx Surgeries: Yes (SHANEKA PICC; single (4 weeks old).) Hx Amputation: Yes (Summer 2016; rt pinky toe; at [facility]) Hx Appendectomy: Yes (At 9 years old.) - ANESTHESIA Hx Anesthesia: Yes Meds Allergies/Adverse Reactions: Allergies Allergy/AdvReac Type Severity Reaction Status Date / Time No Known Allergies Allergy Verified 04/19/17 19:42 - Medications Medications: Current Medications Acetaminophen (Tylenol 325 Mg Supp) 325 mg RC Q6 PRN PRN Reason: Fever >100.4 F Insulin Human Regular 100 (units/ Sodium Chloride) 100 mls @ 10 mls/hr IV .Q10H PRN; Protocol; 10 UNITS/HR PRN Reason: TITRATE PER MD ORDER Last Titration: 04/20/17 07:04 Dose: 4 units/hr, 4 mls/hr Pantoprazole Sodium (Protonix 40mg Ivpb) 40 mg in 100 mls @ 20 mls/hr IVPB .Q5H [facility] Last Admin: 04/20/17 17:28 Dose: 20 mls/hr Ceftriaxone Sodium (Rocephin 2 Gm Ivpb) 2 gm in 100 mls @ 100 mls/hr IVPB DAILY GABI PRN Reason: Protocol Last Admin: 04/20/17 09:35 Dose: 100 mls/hr Sodium Chloride (Sodium Chloride 0.9%) 1,000 mls @ 100 mls/hr IV .Q10H GABI Insulin Human Lispro (Humalog Med) 0 units SC Q4 GABI PRN Reason: Protocol Last Admin: 04/20/17 16:01 Dose: Not Given Ondansetron HCl (Zofran Inj) 4 mg IVP Q4H PRN PRN Reason: Nausea/Vomiting Physical Exam - Constitutional Appears: Well, Non-toxic, No Acute Distress - Extremities Exam Additional comments: RLE focused physical exam VASC: DP and PT pulses palpable 2/4 b/l. CFT <3 seconds to all digits x4. Temperature gradient cool to cool. Nonpitting edema noted to LE. NEURO: Gross sensation absent. DERM: Ulceration noted to lateral aspect of right foot measuring approximately 0.5 x 0.5 cm - ulcer is noted to have a granular base with hyperkeratotic rim; mild serosanguinous drainage noted; no purulence, no fluctuance, no undermining , no tunneling; mild periwound erythema noted. ORTHO: Previous 5th ray amputation. - Neurological Exam Neurological exam: Alert, Oriented x3 - Psychiatric Exam Psychiatric exam: Normal Affect, Normal Mood Results - Vital Signs Recent Vital Signs: Last Vital Signs Temp 97.8 F 04/20/17 17:08 Pulse 94 H 04/20/17 17:50 Resp 15 04/20/17 17:50 BP 119/72 04/20/17 17:45 Pulse Ox 100 02/28/18 17:50 - Labs Result Diagrams: 04/20/17 18:24 04/20/17 12:00 Labs: Laboratory Results - last 24 hr 04/19/17 04/19/17 04/20/17 21:28 23:06 00:14 WBC RBC Hgb Hct MCV MCH MCHC RDW Plt Count MPV Gran % Lymph % (Auto) [place] % (Auto) Eos % (Auto) Baso % (Auto) Gran # Lymph # (Auto) [place] # (Auto) Eos # (Auto) Baso # (Auto) ESR pO2 VBG pH VBG pCO2 VBG HCO3 VBG Total CO2 VBG O2 Sat (Calc) VBG Base Excess VBG Potassium Glucose Lactate FiO2 Sodium Potassium Chloride Carbon Dioxide Anion Gap BUN Creatinine Est GFR ( Amer) Est GFR (Non-Af Amer) POC Glucose (mg/dL) > 500 H* > 500 H* 491 H* Random Glucose Hemoglobin A1c Calcium Phosphorus Magnesium Iron TIBC % Saturation Total Bilirubin AST ALT Alkaline Phosphatase C-React Prot High Sens Total Protein Albumin Globulin Albumin/Globulin Ratio Venous Blood Potassium Urine Color Urine Appearance Urine pH Ur Specific [place] Urine Protein Urine Glucose (UA) Urine Ketones Urine Blood Urine Nitrate Urine Bilirubin Urine Urobilinogen Ur Leukocyte Esterase Urine Opiates Screen Urine Methadone Screen Ur Barbiturates Screen Ur Phencyclidine Scrn Ur Amphetamines Screen U Benzodiazepines Scrn U Oth Cocaine Metabols U Cannabinoids Screen Alcohol, Quantitative 04/20/17 04/20/17 04/20/17 00:35 01:05 02:20 WBC RBC Hgb Hct MCV MCH MCHC RDW Plt Count MPV Gran % Lymph % (Auto) [place] % (Auto) Eos % (Auto) Baso % (Auto) Gran # Lymph # (Auto) [place] # (Auto) Eos # (Auto) Baso # (Auto) ESR pO2 VBG pH VBG pCO2 VBG HCO3 VBG Total CO2 VBG O2 Sat (Calc) VBG Base Excess VBG Potassium Glucose Lactate FiO2 Sodium 132 Potassium 4.8 Chloride 98 Carbon Dioxide 10 L D Anion Gap 29 H BUN 65 H Creatinine 1.5 Est GFR ( Amer) > 60 Est GFR (Non-Af Amer) 51 POC Glucose (mg/dL) 390 H 391 H Random Glucose 620 H* D Hemoglobin A1c Calcium 8.6 Phosphorus Magnesium Iron TIBC % Saturation Total Bilirubin AST ALT Alkaline Phosphatase C-React Prot High Sens Total Protein Albumin Globulin Albumin/Globulin Ratio Venous Blood Potassium Urine Color Urine Appearance Urine pH Ur Specific [place] Urine Protein Urine Glucose (UA) Urine Ketones Urine Blood Urine Nitrate Urine Bilirubin Urine Urobilinogen Ur Leukocyte Esterase Urine Opiates Screen Urine Methadone Screen Ur Barbiturates Screen Ur Phencyclidine Scrn Ur Amphetamines Screen U Benzodiazepines Scrn U Oth Cocaine Metabols U Cannabinoids Screen Alcohol, Quantitative 04/20/17 04/20/17 04/20/17 03:04 04:21 05:16 WBC RBC Hgb Hct MCV MCH MCHC RDW Plt Count MPV Gran % Lymph % (Auto) [place] % (Auto) Eos % (Auto) Baso % (Auto) Gran # Lymph # (Auto) [place] # (Auto) Eos # (Auto) Baso # (Auto) ESR pO2 VBG pH VBG pCO2 VBG HCO3 VBG Total CO2 VBG O2 Sat (Calc) VBG Base Excess VBG Potassium Glucose Lactate FiO2 Sodium Potassium Chloride Carbon Dioxide Anion Gap BUN Creatinine Est GFR ( Amer) Est GFR (Non-Af Amer) POC Glucose (mg/dL) 352 H 295 H 247 H Random Glucose Hemoglobin A1c Calcium Phosphorus Magnesium Iron TIBC % Saturation Total Bilirubin AST ALT Alkaline Phosphatase C-React Prot High Sens Total Protein Albumin Globulin Albumin/Globulin Ratio Venous Blood Potassium Urine Color Urine Appearance Urine pH Ur Specific [place] Urine Protein Urine Glucose (UA) Urine Ketones Urine Blood Urine Nitrate Urine Bilirubin Urine Urobilinogen Ur Leukocyte Esterase Urine Opiates Screen Urine Methadone Screen Ur Barbiturates Screen Ur Phencyclidine Scrn Ur Amphetamines Screen U Benzodiazepines Scrn U Oth Cocaine Metabols U Cannabinoids Screen Alcohol, Quantitative 04/20/17 04/20/17 04/20/17 06:00 06:10 06:10 WBC 8.0 RBC 2.61 L Hgb 7.8 L Hct 22.3 L MCV 85.4 D MCH 29.9 MCHC 35.0 RDW 13.4 Plt Count 385 MPV 8.5 Gran % 54.4 Lymph % (Auto) 28.7 [place] % (Auto) 16.3 H Eos % (Auto) 0.4 L Baso % (Auto) 0.2 Gran # 4.36 Lymph # (Auto) 2.3 [place] # (Auto) 1.3 H Eos # (Auto) 0.0 Baso # (Auto) 0.02 ESR pO2 50 VBG pH 7.29 L VBG pCO2 43.0 VBG HCO3 20.7 L VBG Total CO2 22.0 VBG O2 Sat (Calc) 92.2 H VBG Base Excess -5.7 L VBG Potassium 4.5 Glucose 277 H Lactate 0.9 FiO2 21.0 Sodium 137.0 Potassium Chloride 111.0 H Carbon Dioxide Anion Gap BUN Creatinine Est GFR ( Amer) Est GFR (Non-Af Amer) POC Glucose (mg/dL) Random Glucose Hemoglobin A1c Calcium Phosphorus Magnesium Iron TIBC % Saturation Total Bilirubin AST ALT Alkaline Phosphatase C-React Prot High Sens Total Protein Albumin Globulin Albumin/Globulin Ratio Venous Blood Potassium 4.5 Urine Color Light yellow Urine Appearance Clear Urine pH 5.5 Ur Specific [place] 1.010 Urine Protein Negative Urine Glucose (UA) >=1000 Urine Ketones >=80 Urine Blood Negative Urine Nitrate Negative Urine Bilirubin Negative Urine Urobilinogen 0.2 Ur Leukocyte Esterase Negative Urine Opiates Screen Urine Methadone Screen Ur Barbiturates Screen Ur Phencyclidine Scrn Ur Amphetamines Screen U Benzodiazepines Scrn U Oth Cocaine Metabols U Cannabinoids Screen Alcohol, Quantitative 04/20/17 04/20/17 04/20/17 06:10 06:30 06:30 WBC RBC Hgb Hct MCV MCH MCHC RDW Plt Count MPV Gran % Lymph % (Auto) [place] % (Auto) Eos % (Auto) Baso % (Auto) Gran # Lymph # (Auto) [place] # (Auto) Eos # (Auto) Baso # (Auto) ESR pO2 VBG pH VBG pCO2 VBG HCO3 VBG Total CO2 VBG O2 Sat (Calc) VBG Base Excess VBG Potassium Glucose Lactate FiO2 Sodium 139 138 Potassium 4.3 4.6 Chloride 108 H 108 H Carbon Dioxide 22 22 Anion Gap 14 13 BUN 57 H 59 H Creatinine 1.1 1.1 Est GFR ( Amer) > 60 > 60 Est GFR (Non-Af Amer) > 60 > 60 POC Glucose (mg/dL) Random Glucose 263 H 256 H Hemoglobin A1c 8.2 H Calcium 8.9 8.9 Phosphorus 2.5 Magnesium 2.3 H Iron TIBC % Saturation Total Bilirubin 0.3 AST 24 ALT 19 Alkaline Phosphatase 56 C-React Prot High Sens Total Protein 4.7 L Albumin 2.3 L Globulin 2.4 Albumin/Globulin Ratio 1.0 L Venous Blood Potassium Urine Color Urine Appearance Urine pH Ur Specific [place] Urine Protein Urine Glucose (UA) Urine Ketones Urine Blood Urine Nitrate Urine Bilirubin Urine Urobilinogen Ur Leukocyte Esterase Urine Opiates Screen Urine Methadone Screen Ur Barbiturates Screen Ur Phencyclidine Scrn Ur Amphetamines Screen U Benzodiazepines Scrn U Oth Cocaine Metabols U Cannabinoids Screen Alcohol, Quantitative 04/20/17 04/20/17 04/20/17 06:34 07:02 07:30 WBC RBC Hgb Hct MCV MCH MCHC RDW Plt Count MPV Gran % Lymph % (Auto) [place] % (Auto) Eos % (Auto) Baso % (Auto) Gran # Lymph # (Auto) [place] # (Auto) Eos # (Auto) Baso # (Auto) ESR pO2 VBG pH VBG pCO2 VBG HCO3 VBG Total CO2 VBG O2 Sat (Calc) VBG Base Excess VBG Potassium Glucose Lactate FiO2 Sodium Potassium Chloride Carbon Dioxide Anion Gap BUN Creatinine Est GFR ( Amer) Est GFR (Non-Af Amer) POC Glucose (mg/dL) 224 H 213 H Random Glucose Hemoglobin A1c Calcium Phosphorus Magnesium Iron TIBC % Saturation Total Bilirubin AST ALT Alkaline Phosphatase C-React Prot High Sens Total Protein Albumin Globulin Albumin/Globulin Ratio Venous Blood Potassium Urine Color Urine Appearance Urine pH Ur Specific [place] Urine Protein Urine Glucose (UA) Urine Ketones Urine Blood Urine Nitrate Urine Bilirubin Urine Urobilinogen Ur Leukocyte Esterase Urine Opiates Screen Urine Methadone Screen Ur Barbiturates Screen Ur Phencyclidine Scrn Ur Amphetamines Screen U Benzodiazepines Scrn U Oth Cocaine Metabols U Cannabinoids Screen Alcohol, Quantitative < 10 04/20/17 04/20/17 04/20/17 09:15 11:02 11:30 WBC RBC Hgb Hct MCV MCH MCHC RDW Plt Count MPV Gran % Lymph % (Auto) [place] % (Auto) Eos % (Auto) Baso % (Auto) Gran # Lymph # (Auto) [place] # (Auto) Eos # (Auto) Baso # (Auto) ESR pO2 VBG pH VBG pCO2 VBG HCO3 VBG Total CO2 VBG O2 Sat (Calc) VBG Base Excess VBG Potassium Glucose Lactate FiO2 Sodium Potassium Chloride Carbon Dioxide Anion Gap BUN Creatinine Est GFR ( Amer) Est GFR (Non-Af Amer) POC Glucose (mg/dL) 162 H 137 H Random Glucose Hemoglobin A1c Calcium Phosphorus Magnesium Iron TIBC % Saturation Total Bilirubin AST ALT Alkaline Phosphatase C-React Prot High Sens Total Protein Albumin Globulin Albumin/Globulin Ratio Venous Blood Potassium Urine Color Urine Appearance Urine pH Ur Specific [place] Urine Protein Urine Glucose (UA) Urine Ketones Urine Blood Urine Nitrate Urine Bilirubin Urine Urobilinogen Ur Leukocyte Esterase Urine Opiates Screen Negative Urine Methadone Screen Negative Ur Barbiturates Screen Negative Ur Phencyclidine Scrn Negative Ur Amphetamines Screen Negative U Benzodiazepines Scrn Negative U Oth Cocaine Metabols Negative U Cannabinoids Screen Negative Alcohol, Quantitative 04/20/17 04/20/17 04/20/17 12:00 12:00 12:00 WBC 11.3 H D RBC 2.40 L Hgb 7.3 L Hct 20.4 L* MCV 85.0 MCH 30.4 MCHC 35.8 RDW 13.6 Plt Count 381 MPV 8.4 Gran % Lymph % (Auto) [place] % (Auto) Eos % (Auto) Baso % (Auto) Gran # Lymph # (Auto) [place] # (Auto) Eos # (Auto) Baso # (Auto) ESR 20 H pO2 VBG pH VBG pCO2 VBG HCO3 VBG Total CO2 VBG O2 Sat (Calc) VBG Base Excess VBG Potassium Glucose Lactate FiO2 Sodium 142 Potassium 4.0 Chloride 112 H Carbon Dioxide 21 Anion Gap 14 BUN 41 H Creatinine 0.9 Est GFR ( Amer) > 60 Est GFR (Non-Af Amer) > 60 POC Glucose (mg/dL) Random Glucose 129 H Hemoglobin A1c Calcium 8.3 L Phosphorus Magnesium Iron TIBC % Saturation Total Bilirubin 0.1 L AST 12 L D ALT 29 Alkaline Phosphatase 48 C-React Prot High Sens > 15.00 H Total Protein 4.4 L Albumin 2.2 L Globulin 2.2 Albumin/Globulin Ratio 1.0 L Venous Blood Potassium Urine Color Urine Appearance Urine pH Ur Specific [place] Urine Protein Urine Glucose (UA) Urine Ketones Urine Blood Urine Nitrate Urine Bilirubin Urine Urobilinogen Ur Leukocyte Esterase Urine Opiates Screen Urine Methadone Screen Ur Barbiturates Screen Ur Phencyclidine Scrn Ur Amphetamines Screen U Benzodiazepines Scrn U Oth Cocaine Metabols U Cannabinoids Screen Alcohol, Quantitative 04/20/17 04/20/17 04/20/17 14:21 18:24 18:24 WBC RBC Hgb 8.3 L Hct 23.5 L MCV MCH MCHC RDW Plt Count MPV Gran % Lymph % (Auto) [place] % (Auto) Eos % (Auto) Baso % (Auto) Gran # Lymph # (Auto) [place] # (Auto) Eos # (Auto) Baso # (Auto) ESR pO2 VBG pH VBG pCO2 VBG HCO3 VBG Total CO2 VBG O2 Sat (Calc) VBG Base Excess VBG Potassium Glucose Lactate FiO2 Sodium Potassium Chloride Carbon Dioxide Anion Gap BUN Creatinine Est GFR ( Amer) Est GFR (Non-Af Amer) POC Glucose (mg/dL) 122 H Random Glucose Hemoglobin A1c Calcium Phosphorus Magnesium Iron 115 TIBC 186 L % Saturation 62 H Total Bilirubin AST ALT Alkaline Phosphatase C-React Prot High Sens Total Protein Albumin Globulin Albumin/Globulin Ratio Venous Blood Potassium Urine Color Urine Appearance Urine pH Ur Specific [place] Urine Protein Urine Glucose (UA) Urine Ketones Urine Blood Urine Nitrate Urine Bilirubin Urine Urobilinogen Ur Leukocyte Esterase Urine Opiates Screen Urine Methadone Screen Ur Barbiturates Screen Ur Phencyclidine Scrn Ur Amphetamines Screen U Benzodiazepines Scrn U Oth Cocaine Metabols U Cannabinoids Screen Alcohol, Quantitative Assessment & Plan - Assessment and Plan (Free Text) Assessment: 41M extensive PMHx with right lateral foot ulceration 2/2 diabetic neuropathy Plan: Patient seen and evaluated with attending, Dr. Page Afebrile, WBC 11.3, ESR 20 Right foot XR (04/20/17): s/p amputation 5th metatarsal and toes; chronic fractures of proximal 2nd and 3rd metatarsals consistent with Charcot; no bony destruction to suggest OM Right foot ulceration WCx obtained, f/u report Continue local wound care - optifoam to right foot -Bactroban ordered for QD dressing changes Abx per ID - Continue IV Rocephin for now and will follow up the records from [facility] will continue to follow pateint while in house
[2017-04-21] MEDS: Insulin Lispro (humaLOG) MEDIUM Coverage SC SCH ×4 (00:29→18:29)
[2017-04-21] MEDS: Pantoprazole 40mg/100mL NS 40 MG/100 ML BAG IVPB SCH ×3 (03:03→13:07)
[2017-04-21] MEDS: Sodium Chloride 0.9% 1,000 ML IV SCH ×3 (03:04→23:03)
[2017-04-21 06:26] LABS: BASO # 0.01 K/mm3 (0.0-2.0); BASO % 0.1 % (0.0-3.0); EOS # 0.1 (0.0-0.7); EOS % 1.8 % (1.5-5.0); GRAN # 4.88 (1.4-6.5); GRAN % 66.8 % (50.0-68.0); HEMOGLOBIN 8.3 g/dL (14.0-18.0); LYMPH # 1.6 (1.2-3.4); LYMPH % 21.4 % (22.0-35.0); MEAN CELL VOLUME 86.9 fl (80.0-105.0); MEAN CORPUSCULAR HEMOGLOBIN 30.3 pg (25.0-35.0); MEAN CORPUSCULAR HGB CONC 34.9 g/dl (31.0-37.0); MEAN PLATELET VOLUME 8.5 fl (7.0-11.0); MONO # 0.7 (0.1-0.6); MONO % 9.9 % (1.0-6.0); RBC 2.74 10^6/uL (3.5-6.1); RED CELL DISTRIBUTION WIDTH 14.6 % (11.5-14.5); WHITE BLOOD COUNT 7.3 10^3/ul (4.5-11.0)
--- NOTE | 2017-04-21 07:06 | CP.CCUPN ---
<Pia Malik - Last Filed: 04/21/17 10:46> CCU Subjective - Physician Review Subjective (Free Text): 04/21/17 10:46 Pt seen and evaluated at bedside. Pt only complains of chronic weakness, which has improved since yesterday. Pt denies fever, CP, SOB, cough, abdominal pain, N /V/D, hematemesis, hematochezia, urinary complaints. Pt reports good urine output overnight, but has not had any bowel movements. Pt received 1 unit of pRBCs yesterday. Critical Care Time Spent (in minutes): 45 CCU Objective - Vital Signs / Intake & Output Vital Signs (Last 4 hours): Vital Signs Temp Pulse Resp BP Pulse Ox 04/21/17 06:50 89 13 100 04/21/17 06:45 89 13 120/69 100 04/21/17 06:40 92 H 13 100 04/21/17 06:30 89 24 109/68 100 04/21/17 06:20 89 13 100 04/21/17 06:15 90 14 119/69 100 04/21/17 06:10 92 H 100 04/21/17 06:00 91 H 19 116/56 L 100 04/21/17 05:50 93 H 13 100 04/21/17 05:45 92 H 8 L 123/60 100 04/21/17 05:40 90 17 100 04/21/17 05:30 86 15 127/70 100 04/21/17 05:20 93 H 37 H 99 04/21/17 05:15 84 12 97/53 L 99 04/21/17 05:10 81 12 99 04/21/17 05:00 98.9 F 84 20 106/54 L 98 04/21/17 04:50 83 12 98 04/21/17 04:45 85 12 99/57 L 98 04/21/17 04:40 83 13 98 04/21/17 04:30 83 11 L 101/58 L 99 04/21/17 04:20 85 12 99 04/21/17 04:15 85 12 103/58 L 100 04/21/17 04:10 84 11 L 100 04/21/17 04:00 86 13 116/57 L 99 04/21/17 03:50 86 12 99 04/21/17 03:45 89 118/59 L 100 04/21/17 03:40 88 23 100 04/21/17 03:30 88 13 117/81 100 04/21/17 03:20 85 14 99 04/21/17 03:16 82 36 H 124/60 99 04/21/17 03:10 82 13 99 Intake and Output (Last 8hrs): Intake & Output 04/20/17 04/21/17 04/21/17 22:59 06:59 14:59 Intake Total 2825 Output Total 1300 Balance 1525 Intake: IV 2250 Right Upper arm 2250 Blood Product 570 Apheresis Rbc Cp2d As3 Lr 285 1st Unit [id number] Other 5 Apheresis Rbc Cp2d As3 Lr 5 1st Unit [id number] Output: Urine 1300 Urine, Voided 1300 - Physical Exam Head: Positive for: Atraumatic, Normocephalic Pupils: Positive for: PERRL Extroacular Muscles: Positive for: EOMI Conjunctiva: Positive for: Other Mouth: Positive for: Moist Mucous Membranes Neck: Positive for: Normal Range of Motion. Negative for: Meningeal Signs, MIDLINE TENDERNESS, Paraspinal Tenderness Respiratory/Chest: Positive for: Clear to Auscultation, Good Air Exchange. Negative for: Respiratory Distress, Accessory Muscle Use, Wheezes, Rales, Rhonchi Cardiovascular: Positive for: Normal S1, S2. Negative for: Murmurs, Tachycardic , Bradycardic, Rub, Gallop Abdomen: Positive for: Normal Bowel Sounds. Negative for: Tenderness, Distention, Peritoneal Signs Back: Positive for: Normal Inspection. Negative for: CVA Tenderness, Midline Tenderness, Paraspinal Tenderness Upper Extremity: Positive for: Normal Inspection. Negative for: Cyanosis, Edema Lower Extremity: Positive for: Normal Inspection. Negative for: Edema Neurological: Positive for: GCS=15, CN II-XII Intact, Speech Normal Skin: Positive for: Warm, Dry, Pale. Negative for: Rashes Psychiatric: Positive for: Alert, Oriented x 3, Normal Insight, Normal Concentration - Medications Active Medications: Active Medications Generic Name Dose Route Start Last Admin Trade Name Freq PRN Reason Stop Dose Admin Acetaminophen 325 mg 04/19/17 23:42 Tylenol 325 Mg Supp RC Q6 PRN Fever >100.4 F Insulin Human Regular 100 100 mls @ 10 mls/hr 04/19/17 20:27 04/20/17 07:04 units/ Sodium Chloride IV 4 units/hr .Q10H PRN 4 mls/hr TITRATE PER MD ORDER Titration Protocol 10 UNITS/HR Pantoprazole Sodium 40 mg in 100 mls @ 20 mls/hr 04/19/17 23:45 04/21/17 03: 03 Protonix 40mg Ivpb IVPB 20 mls/hr .Q5H GABI Administration Ceftriaxone Sodium 2 gm in 100 mls @ 100 mls/hr 04/20/17 10:00 04/20/17 09:35 Rocephin 2 Gm Ivpb IVPB 100 mls/hr DAILY GABI Administration Protocol Sodium Chloride 1,000 mls @ 100 mls/hr 04/20/17 17:30 04/21/17 03:04 Sodium Chloride 0.9% IV 100 mls/hr .Q10H GABI Administration Insulin Human Lispro 0 units 04/20/17 12:00 04/21/17 00:29 Humalog Med SC Not Given Q4 GABI Protocol Mupirocin 0 gm 04/21/17 06:00 Bactroban Ointment TOP BID GABI Ondansetron HCl 4 mg 04/20/17 07:54 Zofran Inj IVP Q4H PRN Nausea/Vomiting - Patient Studies Lab Studies: Microbiology Studies 04/20/17 06:10 Blood Culture - Preliminary Blood NO GROWTH AFTER 24 HOURS Lab Studies 04/21/17 04/20/17 04/20/17 Range/Units 06:15 23:39 19:59 WBC 7.3 D (4.5-11.0) 10^3/ul RBC 2.74 L (3.5-6.1) 10^6/uL Hgb 8.3 L (14.0-18.0) g/dL Hct 23.8 L (42.0-52.0) % MCV 86.9 (80.0-105.0) fl MCH 30.3 (25.0-35.0) pg MCHC 34.9 (31.0-37.0) g/dl RDW 14.6 H (11.5-14.5) % Plt Count 349 (120.0-450.0) 10^3/uL MPV 8.5 (7.0-11.0) fl Gran % 66.8 (50.0-68.0) % Lymph % (Auto) 21.4 L (22.0-35.0) % Hart % (Auto) 9.9 H (1.0-6.0) % Eos % (Auto) 1.8 (1.5-5.0) % Baso % (Auto) 0.1 (0.0-3.0) % Gran # 4.88 (1.4-6.5) Lymph # (Auto) 1.6 (1.2-3.4) Hart # (Auto) 0.7 H (0.1-0.6) Eos # (Auto) 0.1 (0.0-0.7) Baso # (Auto) 0.01 (0.0-2.0) K/mm3 ESR (0.0-15.0) mm/hr pO2 (30-55) mm/Hg VBG pH (7.32-7.43) VBG pCO2 (40-60) VBG HCO3 (21-28) mmol/l VBG Total CO2 (22-28) mmol.L VBG O2 Sat (Calc) (40-65) % VBG Base Excess (0.0-2.0) mmol/L VBG Potassium (3.6-5.2) mmol/L Sodium (132-148) mmol/L Chloride (98-107) mmol/L Glucose (75-110) mg/dl Lactate (0.7-2.1) mmol/L FiO2 % Potassium (3.6-5.0) mmol/L Carbon Dioxide (21-33) mmol/L Anion Gap (10-20) BUN (7-21) mg/dL Creatinine (0.8-1.5) mg/dl Est GFR ( Amer) Est GFR (Non-Af Amer) POC Glucose (mg/dL) 113 H 137 H (65-110) mg/dL Random Glucose (70-110) mg/dL Hemoglobin A1c (4.2-6.5) % Calcium (8.4-10.5) mg/dL Phosphorus (2.5-4.5) mg/dL Magnesium (1.7-2.2) mg/dL Iron (45-180) ug/dL TIBC (261-462) ug/dL % Saturation (20-55) % Total Bilirubin (0.2-1.3) mg/dL AST (17-59) U/L ALT (7-56) U/L Alkaline Phosphatase (38-126) U/L C-React Prot High Sens (1.00-3.00) mg/L Total Protein (5.8-8.3) g/dL Albumin (3.0-4.8) g/dL Globulin gm/dL Albumin/Globulin Ratio (1.1-1.8) Venous Blood Potassium (3.6-5.2) mmol/L Urine Color (YELLOW) Urine Appearance (CLEAR) Urine pH (4.7-8.0) Ur Specific [place] (1.005-1.035) Urine Protein (<30 mg/dL) mg/dL Urine Glucose (UA) (NEGATIVE) mg/dL Urine Ketones (NEGATIVE) mg/dL Urine Blood (NEGATIVE) Urine Nitrate (NEGATIVE) Urine Bilirubin (NEGATIVE) Urine Urobilinogen (<1 E.U./dL) E.U./dL Ur Leukocyte Esterase (NEGATIVE) Abigail/uL Urine Opiates Screen (NEGATIVE) Urine Methadone Screen (NEGATIVE) Ur Barbiturates Screen (NEGATIVE) Ur Phencyclidine Scrn (NEGATIVE) Ur Amphetamines Screen (NEGATIVE) U Benzodiazepines Scrn (NEGATIVE) U Oth Cocaine Metabols (NEGATIVE) U Cannabinoids Screen (NEGATIVE) Alcohol, Quantitative (0-10) mg/dL HIV 1&2 Ag/Ab, 4th Gen (Nonreactive) 04/20/17 04/20/17 04/20/17 Range/Units 18:24 18:24 14:21 WBC (4.5-11.0) 10^3/ul RBC (3.5-6.1) 10^6/uL Hgb 8.3 L (14.0-18.0) g/dL Hct 23.5 L (42.0-52.0) % MCV (80.0-105.0) fl MCH (25.0-35.0) pg MCHC (31.0-37.0) g/dl RDW (11.5-14.5) % Plt Count (120.0-450.0) 10^3/uL MPV (7.0-11.0) fl Gran % (50.0-68.0) % Lymph % (Auto) (22.0-35.0) % Hart % (Auto) (1.0-6.0) % Eos % (Auto) (1.5-5.0) % Baso % (Auto) (0.0-3.0) % Gran # (1.4-6.5) Lymph # (Auto) (1.2-3.4) Hart # (Auto) (0.1-0.6) Eos # (Auto) (0.0-0.7) Baso # (Auto) (0.0-2.0) K/mm3 ESR (0.0-15.0) mm/hr pO2 (30-55) mm/Hg VBG pH (7.32-7.43) VBG pCO2 (40-60) VBG HCO3 (21-28) mmol/l VBG Total CO2 (22-28) mmol.L VBG O2 Sat (Calc) (40-65) % VBG Base Excess (0.0-2.0) mmol/L VBG Potassium (3.6-5.2) mmol/L Sodium (132-148) mmol/L Chloride (98-107) mmol/L Glucose (75-110) mg/dl Lactate (0.7-2.1) mmol/L FiO2 % Potassium (3.6-5.0) mmol/L Carbon Dioxide (21-33) mmol/L Anion Gap (10-20) BUN (7-21) mg/dL Creatinine (0.8-1.5) mg/dl Est GFR ( Amer) Est GFR (Non-Af Amer) POC Glucose (mg/dL) 122 H (65-110) mg/dL Random Glucose (70-110) mg/dL Hemoglobin A1c (4.2-6.5) % Calcium (8.4-10.5) mg/dL Phosphorus (2.5-4.5) mg/dL Magnesium (1.7-2.2) mg/dL Iron 115 (45-180) ug/dL TIBC 186 L (261-462) ug/dL % Saturation 62 H (20-55) % Total Bilirubin (0.2-1.3) mg/dL AST (17-59) U/L ALT (7-56) U/L Alkaline Phosphatase (38-126) U/L C-React Prot High Sens (1.00-3.00) mg/L Total Protein (5.8-8.3) g/dL Albumin (3.0-4.8) g/dL Globulin gm/dL Albumin/Globulin Ratio (1.1-1.8) Venous Blood Potassium (3.6-5.2) mmol/L Urine Color (YELLOW) Urine Appearance (CLEAR) Urine pH (4.7-8.0) Ur Specific [place] (1.005-1.035) Urine Protein (<30 mg/dL) mg/dL Urine Glucose (UA) (NEGATIVE) mg/dL Urine Ketones (NEGATIVE) mg/dL Urine Blood (NEGATIVE) Urine Nitrate (NEGATIVE) Urine Bilirubin (NEGATIVE) Urine Urobilinogen (<1 E.U./dL) E.U./dL Ur Leukocyte Esterase (NEGATIVE) Abigail/uL Urine Opiates Screen (NEGATIVE) Urine Methadone Screen (NEGATIVE) Ur Barbiturates Screen (NEGATIVE) Ur Phencyclidine Scrn (NEGATIVE) Ur Amphetamines Screen (NEGATIVE) U Benzodiazepines Scrn (NEGATIVE) U Oth Cocaine Metabols (NEGATIVE) U Cannabinoids Screen (NEGATIVE) Alcohol, Quantitative (0-10) mg/dL HIV 1&2 Ag/Ab, 4th Gen (Nonreactive) 04/20/17 04/20/17 04/20/17 Range/Units 12:00 12:00 12:00 WBC 11.3 H D (4.5-11.0) 10^3/ul RBC 2.40 L (3.5-6.1) 10^6/uL Hgb 7.3 L (14.0-18.0) g/dL Hct 20.4 L* (42.0-52.0) % MCV 85.0 (80.0-105.0) fl MCH 30.4 (25.0-35.0) pg MCHC 35.8 (31.0-37.0) g/dl RDW 13.6 (11.5-14.5) % Plt Count 381 (120.0-450.0) 10^3/uL MPV 8.4 (7.0-11.0) fl Gran % (50.0-68.0) % Lymph % (Auto) (22.0-35.0) % Hart % (Auto) (1.0-6.0) % Eos % (Auto) (1.5-5.0) % Baso % (Auto) (0.0-3.0) % Gran # (1.4-6.5) Lymph # (Auto) (1.2-3.4) Hart # (Auto) (0.1-0.6) Eos # (Auto) (0.0-0.7) Baso # (Auto) (0.0-2.0) K/mm3 ESR 20 H (0.0-15.0) mm/hr pO2 (30-55) mm/Hg VBG pH (7.32-7.43) VBG pCO2 (40-60) VBG HCO3 (21-28) mmol/l VBG Total CO2 (22-28) mmol.L VBG O2 Sat (Calc) (40-65) % VBG Base Excess (0.0-2.0) mmol/L VBG Potassium (3.6-5.2) mmol/L Sodium 142 (132-148) mmol/L Chloride 112 H (98-107) mmol/L Glucose (75-110) mg/dl Lactate (0.7-2.1) mmol/L FiO2 % Potassium 4.0 (3.6-5.0) mmol/L Carbon Dioxide 21 (21-33) mmol/L Anion Gap 14 (10-20) BUN 41 H (7-21) mg/dL Creatinine 0.9 (0.8-1.5) mg/dl Est GFR ( Amer) > 60 Est GFR (Non-Af Amer) > 60 POC Glucose (mg/dL) (65-110) mg/dL Random Glucose 129 H (70-110) mg/dL Hemoglobin A1c (4.2-6.5) % Calcium 8.3 L (8.4-10.5) mg/dL Phosphorus (2.5-4.5) mg/dL Magnesium (1.7-2.2) mg/dL Iron (45-180) ug/dL TIBC (261-462) ug/dL % Saturation (20-55) % Total Bilirubin 0.1 L (0.2-1.3) mg/dL AST 12 L D (17-59) U/L ALT 29 (7-56) U/L Alkaline Phosphatase 48 (38-126) U/L C-React Prot High Sens > 15.00 H (1.00-3.00) mg/L Total Protein 4.4 L (5.8-8.3) g/dL Albumin 2.2 L (3.0-4.8) g/dL Globulin 2.2 gm/dL Albumin/Globulin Ratio 1.0 L (1.1-1.8) Venous Blood Potassium (3.6-5.2) mmol/L Urine Color (YELLOW) Urine Appearance (CLEAR) Urine pH (4.7-8.0) Ur Specific [place] (1.005-1.035) Urine Protein (<30 mg/dL) mg/dL Urine Glucose (UA) (NEGATIVE) mg/dL Urine Ketones (NEGATIVE) mg/dL Urine Blood (NEGATIVE) Urine Nitrate (NEGATIVE) Urine Bilirubin (NEGATIVE) Urine Urobilinogen (<1 E.U./dL) E.U./dL Ur Leukocyte Esterase (NEGATIVE) Abigail/uL Urine Opiates Screen (NEGATIVE) Urine Methadone Screen (NEGATIVE) Ur Barbiturates Screen (NEGATIVE) Ur Phencyclidine Scrn (NEGATIVE) Ur Amphetamines Screen (NEGATIVE) U Benzodiazepines Scrn (NEGATIVE) U Oth Cocaine Metabols (NEGATIVE) U Cannabinoids Screen (NEGATIVE) Alcohol, Quantitative (0-10) mg/dL HIV 1&2 Ag/Ab, 4th Gen (Nonreactive) 04/20/17 04/20/17 04/20/17 Range/Units 11:30 11:02 09:15 WBC (4.5-11.0) 10^3/ul RBC (3.5-6.1) 10^6/uL Hgb (14.0-18.0) g/dL Hct (42.0-52.0) % MCV (80.0-105.0) fl MCH (25.0-35.0) pg MCHC (31.0-37.0) g/dl RDW (11.5-14.5) % Plt Count (120.0-450.0) 10^3/uL MPV (7.0-11.0) fl Gran % (50.0-68.0) % Lymph % (Auto) (22.0-35.0) % Hart % (Auto) (1.0-6.0) % Eos % (Auto) (1.5-5.0) % Baso % (Auto) (0.0-3.0) % Gran # (1.4-6.5) Lymph # (Auto) (1.2-3.4) Hart # (Auto) (0.1-0.6) Eos # (Auto) (0.0-0.7) Baso # (Auto) (0.0-2.0) K/mm3 ESR (0.0-15.0) mm/hr pO2 (30-55) mm/Hg VBG pH (7.32-7.43) VBG pCO2 (40-60) VBG HCO3 (21-28) mmol/l VBG Total CO2 (22-28) mmol.L VBG O2 Sat (Calc) (40-65) % VBG Base Excess (0.0-2.0) mmol/L VBG Potassium (3.6-5.2) mmol/L Sodium (132-148) mmol/L Chloride (98-107) mmol/L Glucose (75-110) mg/dl Lactate (0.7-2.1) mmol/L FiO2 % Potassium (3.6-5.0) mmol/L Carbon Dioxide (21-33) mmol/L Anion Gap (10-20) BUN (7-21) mg/dL Creatinine (0.8-1.5) mg/dl Est GFR ( Amer) Est GFR (Non-Af Amer) POC Glucose (mg/dL) 137 H 162 H (65-110) mg/dL Random Glucose (70-110) mg/dL Hemoglobin A1c (4.2-6.5) % Calcium (8.4-10.5) mg/dL Phosphorus (2.5-4.5) mg/dL Magnesium (1.7-2.2) mg/dL Iron (45-180) ug/dL TIBC (261-462) ug/dL % Saturation (20-55) % Total Bilirubin (0.2-1.3) mg/dL AST (17-59) U/L ALT (7-56) U/L Alkaline Phosphatase (38-126) U/L C-React Prot High Sens (1.00-3.00) mg/L Total Protein (5.8-8.3) g/dL Albumin (3.0-4.8) g/dL Globulin gm/dL Albumin/Globulin Ratio (1.1-1.8) Venous Blood Potassium (3.6-5.2) mmol/L Urine Color (YELLOW) Urine Appearance (CLEAR) Urine pH (4.7-8.0) Ur Specific [place] (1.005-1.035) Urine Protein (<30 mg/dL) mg/dL Urine Glucose (UA) (NEGATIVE) mg/dL Urine Ketones (NEGATIVE) mg/dL Urine Blood (NEGATIVE) Urine Nitrate (NEGATIVE) Urine Bilirubin (NEGATIVE) Urine Urobilinogen (<1 E.U./dL) E.U./dL Ur Leukocyte Esterase (NEGATIVE) Abigail/uL Urine Opiates Screen Negative (NEGATIVE) Urine Methadone Screen Negative (NEGATIVE) Ur Barbiturates Screen Negative (NEGATIVE) Ur Phencyclidine Scrn Negative (NEGATIVE) Ur Amphetamines Screen Negative (NEGATIVE) U Benzodiazepines Scrn Negative (NEGATIVE) U Oth Cocaine Metabols Negative (NEGATIVE) U Cannabinoids Screen Negative (NEGATIVE) Alcohol, Quantitative (0-10) mg/dL HIV 1&2 Ag/Ab, 4th Gen (Nonreactive) 04/20/17 04/20/17 04/20/17 Range/Units 07:30 06:30 06:30 WBC (4.5-11.0) 10^3/ul RBC (3.5-6.1) 10^6/uL Hgb (14.0-18.0) g/dL Hct (42.0-52.0) % MCV (80.0-105.0) fl MCH (25.0-35.0) pg MCHC (31.0-37.0) g/dl RDW (11.5-14.5) % Plt Count (120.0-450.0) 10^3/uL MPV (7.0-11.0) fl Gran % (50.0-68.0) % Lymph % (Auto) (22.0-35.0) % Hart % (Auto) (1.0-6.0) % Eos % (Auto) (1.5-5.0) % Baso % (Auto) (0.0-3.0) % Gran # (1.4-6.5) Lymph # (Auto) (1.2-3.4) Hart # (Auto) (0.1-0.6) Eos # (Auto) (0.0-0.7) Baso # (Auto) (0.0-2.0) K/mm3 ESR (0.0-15.0) mm/hr pO2 (30-55) mm/Hg VBG pH (7.32-7.43) VBG pCO2 (40-60) VBG HCO3 (21-28) mmol/l VBG Total CO2 (22-28) mmol.L VBG O2 Sat (Calc) (40-65) % VBG Base Excess (0.0-2.0) mmol/L VBG Potassium (3.6-5.2) mmol/L Sodium (132-148) mmol/L Chloride (98-107) mmol/L Glucose (75-110) mg/dl Lactate (0.7-2.1) mmol/L FiO2 % Potassium (3.6-5.0) mmol/L Carbon Dioxide (21-33) mmol/L Anion Gap (10-20) BUN (7-21) mg/dL Creatinine (0.8-1.5) mg/dl Est GFR ( Amer) Est GFR (Non-Af Amer) POC Glucose (mg/dL) (65-110) mg/dL Random Glucose (70-110) mg/dL Hemoglobin A1c 8.2 H (4.2-6.5) % Calcium (8.4-10.5) mg/dL Phosphorus (2.5-4.5) mg/dL Magnesium (1.7-2.2) mg/dL Iron (45-180) ug/dL TIBC (261-462) ug/dL % Saturation (20-55) % Total Bilirubin (0.2-1.3) mg/dL AST (17-59) U/L ALT (7-56) U/L Alkaline Phosphatase (38-126) U/L C-React Prot High Sens (1.00-3.00) mg/L Total Protein (5.8-8.3) g/dL Albumin (3.0-4.8) g/dL Globulin gm/dL Albumin/Globulin Ratio (1.1-1.8) Venous Blood Potassium (3.6-5.2) mmol/L Urine Color (YELLOW) Urine Appearance (CLEAR) Urine pH (4.7-8.0) Ur Specific [place] (1.005-1.035) Urine Protein (<30 mg/dL) mg/dL Urine Glucose (UA) (NEGATIVE) mg/dL Urine Ketones (NEGATIVE) mg/dL Urine Blood (NEGATIVE) Urine Nitrate (NEGATIVE) Urine Bilirubin (NEGATIVE) Urine Urobilinogen (<1 E.U./dL) E.U./dL Ur Leukocyte Esterase (NEGATIVE) Abigail/uL Urine Opiates Screen (NEGATIVE) Urine Methadone Screen (NEGATIVE) Ur Barbiturates Screen (NEGATIVE) Ur Phencyclidine Scrn (NEGATIVE) Ur Amphetamines Screen (NEGATIVE) U Benzodiazepines Scrn (NEGATIVE) U Oth Cocaine Metabols (NEGATIVE) U Cannabinoids Screen (NEGATIVE) Alcohol, Quantitative < 10 (0-10) mg/dL HIV 1&2 Ag/Ab, 4th Gen Nonreactive (Nonreactive) 04/20/17 04/20/17 04/20/17 Range/Units 06:30 06:10 06:10 WBC (4.5-11.0) 10^3/ul RBC (3.5-6.1) 10^6/uL Hgb (14.0-18.0) g/dL Hct (42.0-52.0) % MCV (80.0-105.0) fl MCH (25.0-35.0) pg MCHC (31.0-37.0) g/dl RDW (11.5-14.5) % Plt Count (120.0-450.0) 10^3/uL MPV (7.0-11.0) fl Gran % (50.0-68.0) % Lymph % (Auto) (22.0-35.0) % Hart % (Auto) (1.0-6.0) % Eos % (Auto) (1.5-5.0) % Baso % (Auto) (0.0-3.0) % Gran # (1.4-6.5) Lymph # (Auto) (1.2-3.4) Hart # (Auto) (0.1-0.6) Eos # (Auto) (0.0-0.7) Baso # (Auto) (0.0-2.0) K/mm3 ESR (0.0-15.0) mm/hr pO2 50 (30-55) mm/Hg VBG pH 7.29 L (7.32-7.43) VBG pCO2 43.0 (40-60) VBG HCO3 20.7 L (21-28) mmol/l VBG Total CO2 22.0 (22-28) mmol.L VBG O2 Sat (Calc) 92.2 H (40-65) % VBG Base Excess -5.7 L (0.0-2.0) mmol/L VBG Potassium 4.5 (3.6-5.2) mmol/L Sodium 138 139 137.0 (132-148) mmol/L Chloride 108 H 108 H 111.0 H (98-107) mmol/L Glucose 277 H (75-110) mg/dl Lactate 0.9 (0.7-2.1) mmol/L FiO2 21.0 % Potassium 4.6 4.3 (3.6-5.0) mmol/L Carbon Dioxide 22 22 (21-33) mmol/L Anion Gap 13 14 (10-20) BUN 59 H 57 H (7-21) mg/dL Creatinine 1.1 1.1 (0.8-1.5) mg/dl Est GFR ( Amer) > 60 > 60 Est GFR (Non-Af Amer) > 60 > 60 POC Glucose (mg/dL) (65-110) mg/dL Random Glucose 256 H 263 H (70-110) mg/dL Hemoglobin A1c (4.2-6.5) % Calcium 8.9 8.9 (8.4-10.5) mg/dL Phosphorus 2.5 (2.5-4.5) mg/dL Magnesium 2.3 H (1.7-2.2) mg/dL Iron (45-180) ug/dL TIBC (261-462) ug/dL % Saturation (20-55) % Total Bilirubin 0.3 (0.2-1.3) mg/dL AST 24 (17-59) U/L ALT 19 (7-56) U/L Alkaline Phosphatase 56 (38-126) U/L C-React Prot High Sens (1.00-3.00) mg/L Total Protein 4.7 L (5.8-8.3) g/dL Albumin 2.3 L (3.0-4.8) g/dL Globulin 2.4 gm/dL Albumin/Globulin Ratio 1.0 L (1.1-1.8) Venous Blood Potassium 4.5 (3.6-5.2) mmol/L Urine Color (YELLOW) Urine Appearance (CLEAR) Urine pH (4.7-8.0) Ur Specific [place] (1.005-1.035) Urine Protein (<30 mg/dL) mg/dL Urine Glucose (UA) (NEGATIVE) mg/dL Urine Ketones (NEGATIVE) mg/dL Urine Blood (NEGATIVE) Urine Nitrate (NEGATIVE) Urine Bilirubin (NEGATIVE) Urine Urobilinogen (<1 E.U./dL) E.U./dL Ur Leukocyte Esterase (NEGATIVE) Abigail/uL Urine Opiates Screen (NEGATIVE) Urine Methadone Screen (NEGATIVE) Ur Barbiturates Screen (NEGATIVE) Ur Phencyclidine Scrn (NEGATIVE) Ur Amphetamines Screen (NEGATIVE) U Benzodiazepines Scrn (NEGATIVE) U Oth Cocaine Metabols (NEGATIVE) U Cannabinoids Screen (NEGATIVE) Alcohol, Quantitative (0-10) mg/dL HIV 1&2 Ag/Ab, 4th Gen (Nonreactive) 04/20/17 Range/Units 06:00 WBC (4.5-11.0) 10^3/ul RBC (3.5-6.1) 10^6/uL Hgb (14.0-18.0) g/dL Hct (42.0-52.0) % MCV (80.0-105.0) fl MCH (25.0-35.0) pg MCHC (31.0-37.0) g/dl RDW (11.5-14.5) % Plt Count (120.0-450.0) 10^3/uL MPV (7.0-11.0) fl Gran % (50.0-68.0) % Lymph % (Auto) (22.0-35.0) % Hart % (Auto) (1.0-6.0) % Eos % (Auto) (1.5-5.0) % Baso % (Auto) (0.0-3.0) % Gran # (1.4-6.5) Lymph # (Auto) (1.2-3.4) Hart # (Auto) (0.1-0.6) Eos # (Auto) (0.0-0.7) Baso # (Auto) (0.0-2.0) K/mm3 ESR (0.0-15.0) mm/hr pO2 (30-55) mm/Hg VBG pH (7.32-7.43) VBG pCO2 (40-60) VBG HCO3 (21-28) mmol/l VBG Total CO2 (22-28) mmol.L VBG O2 Sat (Calc) (40-65) % VBG Base Excess (0.0-2.0) mmol/L VBG Potassium (3.6-5.2) mmol/L Sodium (132-148) mmol/L Chloride (98-107) mmol/L Glucose (75-110) mg/dl Lactate (0.7-2.1) mmol/L FiO2 % Potassium (3.6-5.0) mmol/L Carbon Dioxide (21-33) mmol/L Anion Gap (10-20) BUN (7-21) mg/dL Creatinine (0.8-1.5) mg/dl Est GFR ( Amer) Est GFR (Non-Af Amer) POC Glucose (mg/dL) (65-110) mg/dL Random Glucose (70-110) mg/dL Hemoglobin A1c (4.2-6.5) % Calcium (8.4-10.5) mg/dL Phosphorus (2.5-4.5) mg/dL Magnesium (1.7-2.2) mg/dL Iron (45-180) ug/dL TIBC (261-462) ug/dL % Saturation (20-55) % Total Bilirubin (0.2-1.3) mg/dL AST (17-59) U/L ALT (7-56) U/L Alkaline Phosphatase (38-126) U/L C-React Prot High Sens (1.00-3.00) mg/L Total Protein (5.8-8.3) g/dL Albumin (3.0-4.8) g/dL Globulin gm/dL Albumin/Globulin Ratio (1.1-1.8) Venous Blood Potassium (3.6-5.2) mmol/L Urine Color Light yellow (YELLOW) Urine Appearance Clear (CLEAR) Urine pH 5.5 (4.7-8.0) Ur Specific [place] 1.010 (1.005-1.035) Urine Protein Negative (<30 mg/dL) mg/dL Urine Glucose (UA) >=1000 (NEGATIVE) mg/dL Urine Ketones >=80 (NEGATIVE) mg/dL Urine Blood Negative (NEGATIVE) Urine Nitrate Negative (NEGATIVE) Urine Bilirubin Negative (NEGATIVE) Urine Urobilinogen 0.2 (<1 E.U./dL) E.U./dL Ur Leukocyte Esterase Negative (NEGATIVE) Abigail/uL Urine Opiates Screen (NEGATIVE) Urine Methadone Screen (NEGATIVE) Ur Barbiturates Screen (NEGATIVE) Ur Phencyclidine Scrn (NEGATIVE) Ur Amphetamines Screen (NEGATIVE) U Benzodiazepines Scrn (NEGATIVE) U Oth Cocaine Metabols (NEGATIVE) U Cannabinoids Screen (NEGATIVE) Alcohol, Quantitative (0-10) mg/dL HIV 1&2 Ag/Ab, 4th Gen (Nonreactive) Laboratory Results - last 24 hr 04/20/17 04/20/17 04/20/17 06:00 06:10 06:10 WBC RBC Hgb Hct MCV MCH MCHC RDW Plt Count MPV Gran % Lymph % (Auto) Hart % (Auto) Eos % (Auto) Baso % (Auto) Gran # Lymph # (Auto) Hart # (Auto) Eos # (Auto) Baso # (Auto) ESR pO2 50 VBG pH 7.29 L VBG pCO2 43.0 VBG HCO3 20.7 L VBG Total CO2 22.0 VBG O2 Sat (Calc) 92.2 H VBG Base Excess -5.7 L VBG Potassium 4.5 Sodium 137.0 139 Chloride 111.0 H 108 H Glucose 277 H Lactate 0.9 FiO2 21.0 Potassium 4.3 Carbon Dioxide 22 Anion Gap 14 BUN 57 H Creatinine 1.1 Est GFR ( Amer) > 60 Est GFR (Non-Af Amer) > 60 POC Glucose (mg/dL) Random Glucose 263 H Hemoglobin A1c Calcium 8.9 Phosphorus Magnesium Iron TIBC % Saturation Total Bilirubin 0.3 AST 24 ALT 19 Alkaline Phosphatase 56 C-React Prot High Sens Total Protein 4.7 L Albumin 2.3 L Globulin 2.4 Albumin/Globulin Ratio 1.0 L Venous Blood Potassium 4.5 Urine Color Light yellow Urine Appearance Clear Urine pH 5.5 Ur Specific [place] 1.010 Urine Protein Negative Urine Glucose (UA) >=1000 Urine Ketones >=80 Urine Blood Negative Urine Nitrate Negative Urine Bilirubin Negative Urine Urobilinogen 0.2 Ur Leukocyte Esterase Negative Urine Opiates Screen Urine Methadone Screen Ur Barbiturates Screen Ur Phencyclidine Scrn Ur Amphetamines Screen U Benzodiazepines Scrn U Oth Cocaine Metabols U Cannabinoids Screen Alcohol, Quantitative HIV 1&2 Ag/Ab, 4th Gen 04/20/17 04/20/17 04/20/17 06:30 06:30 06:30 WBC RBC Hgb Hct MCV MCH MCHC RDW Plt Count MPV Gran % Lymph % (Auto) Hart % (Auto) Eos % (Auto) Baso % (Auto) Gran # Lymph # (Auto) Hart # (Auto) Eos # (Auto) Baso # (Auto) ESR pO2 VBG pH VBG pCO2 VBG HCO3 VBG Total CO2 VBG O2 Sat (Calc) VBG Base Excess VBG Potassium Sodium 138 Chloride 108 H Glucose Lactate FiO2 Potassium 4.6 Carbon Dioxide 22 Anion Gap 13 BUN 59 H Creatinine 1.1 Est GFR ( Amer) > 60 Est GFR (Non-Af Amer) > 60 POC Glucose (mg/dL) Random Glucose 256 H Hemoglobin A1c 8.2 H Calcium 8.9 Phosphorus 2.5 Magnesium 2.3 H Iron TIBC % Saturation Total Bilirubin AST ALT Alkaline Phosphatase C-React Prot High Sens Total Protein Albumin Globulin Albumin/Globulin Ratio Venous Blood Potassium Urine Color Urine Appearance Urine pH Ur Specific [place] Urine Protein Urine Glucose (UA) Urine Ketones Urine Blood Urine Nitrate Urine Bilirubin Urine Urobilinogen Ur Leukocyte Esterase Urine Opiates Screen Urine Methadone Screen Ur Barbiturates Screen Ur Phencyclidine Scrn Ur Amphetamines Screen U Benzodiazepines Scrn U Oth Cocaine Metabols U Cannabinoids Screen Alcohol, Quantitative HIV 1&2 Ag/Ab, 4th Gen Nonreactive 04/20/17 04/20/17 04/20/17 07:30 09:15 11:02 WBC RBC Hgb Hct MCV MCH MCHC RDW Plt Count MPV Gran % Lymph % (Auto) Hart % (Auto) Eos % (Auto) Baso % (Auto) Gran # Lymph # (Auto) Hart # (Auto) Eos # (Auto) Baso # (Auto) ESR pO2 VBG pH VBG pCO2 VBG HCO3 VBG Total CO2 VBG O2 Sat (Calc) VBG Base Excess VBG Potassium Sodium Chloride Glucose Lactate FiO2 Potassium Carbon Dioxide Anion Gap BUN Creatinine Est GFR ( Amer) Est GFR (Non-Af Amer) POC Glucose (mg/dL) 162 H 137 H Random Glucose Hemoglobin A1c Calcium Phosphorus Magnesium Iron TIBC % Saturation Total Bilirubin AST ALT Alkaline Phosphatase C-React Prot High Sens Total Protein Albumin Globulin Albumin/Globulin Ratio Venous Blood Potassium Urine Color Urine Appearance Urine pH Ur Specific [place] Urine Protein Urine Glucose (UA) Urine Ketones Urine Blood Urine Nitrate Urine Bilirubin Urine Urobilinogen Ur Leukocyte Esterase Urine Opiates Screen Urine Methadone Screen Ur Barbiturates Screen Ur Phencyclidine Scrn Ur Amphetamines Screen U Benzodiazepines Scrn U Oth Cocaine Metabols U Cannabinoids Screen Alcohol, Quantitative < 10 HIV 1&2 Ag/Ab, 4th Gen 04/20/17 04/20/17 04/20/17 11:30 12:00 12:00 WBC 11.3 H D RBC 2.40 L Hgb 7.3 L Hct 20.4 L* MCV 85.0 MCH 30.4 MCHC 35.8 RDW 13.6 Plt Count 381 MPV 8.4 Gran % Lymph % (Auto) Hart % (Auto) Eos % (Auto) Baso % (Auto) Gran # Lymph # (Auto) Hart # (Auto) Eos # (Auto) Baso # (Auto) ESR 20 H pO2 VBG pH VBG pCO2 VBG HCO3 VBG Total CO2 VBG O2 Sat (Calc) VBG Base Excess VBG Potassium Sodium Chloride Glucose Lactate FiO2 Potassium Carbon Dioxide Anion Gap BUN Creatinine Est GFR ( Amer) Est GFR (Non-Af Amer) POC Glucose (mg/dL) Random Glucose Hemoglobin A1c Calcium Phosphorus Magnesium Iron TIBC % Saturation Total Bilirubin AST ALT Alkaline Phosphatase C-React Prot High Sens > 15.00 H Total Protein Albumin Globulin Albumin/Globulin Ratio Venous Blood Potassium Urine Color Urine Appearance Urine pH Ur Specific [place] Urine Protein Urine Glucose (UA) Urine Ketones Urine Blood Urine Nitrate Urine Bilirubin Urine Urobilinogen Ur Leukocyte Esterase Urine Opiates Screen Negative Urine Methadone Screen Negative Ur Barbiturates Screen Negative Ur Phencyclidine Scrn Negative Ur Amphetamines Screen Negative U Benzodiazepines Scrn Negative U Oth Cocaine Metabols Negative U Cannabinoids Screen Negative Alcohol, Quantitative HIV 1&2 Ag/Ab, 4th Gen 04/20/17 04/20/17 04/20/17 12:00 14:21 18:24 WBC RBC Hgb 8.3 L Hct 23.5 L MCV MCH MCHC RDW Plt Count MPV Gran % Lymph % (Auto) Hart % (Auto) Eos % (Auto) Baso % (Auto) Gran # Lymph # (Auto) Hart # (Auto) Eos # (Auto) Baso # (Auto) ESR pO2 VBG pH VBG pCO2 VBG HCO3 VBG Total CO2 VBG O2 Sat (Calc) VBG Base Excess VBG Potassium Sodium 142 Chloride 112 H Glucose Lactate FiO2 Potassium 4.0 Carbon Dioxide 21 Anion Gap 14 BUN 41 H Creatinine 0.9 Est GFR ( Amer) > 60 Est GFR (Non-Af Amer) > 60 POC Glucose (mg/dL) 122 H Random Glucose 129 H Hemoglobin A1c Calcium 8.3 L Phosphorus Magnesium Iron TIBC % Saturation Total Bilirubin 0.1 L AST 12 L D ALT 29 Alkaline Phosphatase 48 C-React Prot High Sens Total Protein 4.4 L Albumin 2.2 L Globulin 2.2 Albumin/Globulin Ratio 1.0 L Venous Blood Potassium Urine Color Urine Appearance Urine pH Ur Specific [place] Urine Protein Urine Glucose (UA) Urine Ketones Urine Blood Urine Nitrate Urine Bilirubin Urine Urobilinogen Ur Leukocyte Esterase Urine Opiates Screen Urine Methadone Screen Ur Barbiturates Screen Ur Phencyclidine Scrn Ur Amphetamines Screen U Benzodiazepines Scrn U Oth Cocaine Metabols U Cannabinoids Screen Alcohol, Quantitative HIV 1&2 Ag/Ab, 4th Gen 04/20/17 04/20/17 04/20/17 18:24 19:59 23:39 WBC RBC Hgb Hct MCV MCH MCHC RDW Plt Count MPV Gran % Lymph % (Auto) Hart % (Auto) Eos % (Auto) Baso % (Auto) Gran # Lymph # (Auto) Hart # (Auto) Eos # (Auto) Baso # (Auto) ESR pO2 VBG pH VBG pCO2 VBG HCO3 VBG Total CO2 VBG O2 Sat (Calc) VBG Base Excess VBG Potassium Sodium Chloride Glucose Lactate FiO2 Potassium Carbon Dioxide Anion Gap BUN Creatinine Est GFR ( Amer) Est GFR (Non-Af Amer) POC Glucose (mg/dL) 137 H 113 H Random Glucose Hemoglobin A1c Calcium Phosphorus Magnesium Iron 115 TIBC 186 L % Saturation 62 H Total Bilirubin AST ALT Alkaline Phosphatase C-React Prot High Sens Total Protein Albumin Globulin Albumin/Globulin Ratio Venous Blood Potassium Urine Color Urine Appearance Urine pH Ur Specific [place] Urine Protein Urine Glucose (UA) Urine Ketones Urine Blood Urine Nitrate Urine Bilirubin Urine Urobilinogen Ur Leukocyte Esterase Urine Opiates Screen Urine Methadone Screen Ur Barbiturates Screen Ur Phencyclidine Scrn Ur Amphetamines Screen U Benzodiazepines Scrn U Oth Cocaine Metabols U Cannabinoids Screen Alcohol, Quantitative HIV 1&2 Ag/Ab, 4th Gen 04/21/17 06:15 WBC 7.3 D RBC 2.74 L Hgb 8.3 L Hct 23.8 L MCV 86.9 MCH 30.3 MCHC 34.9 RDW 14.6 H Plt Count 349 MPV 8.5 Gran % 66.8 Lymph % (Auto) 21.4 L Hart % (Auto) 9.9 H Eos % (Auto) 1.8 Baso % (Auto) 0.1 Gran # 4.88 Lymph # (Auto) 1.6 Hart # (Auto) 0.7 H Eos # (Auto) 0.1 Baso # (Auto) 0.01 ESR pO2 VBG pH VBG pCO2 VBG HCO3 VBG Total CO2 VBG O2 Sat (Calc) VBG Base Excess VBG Potassium Sodium Chloride Glucose Lactate FiO2 Potassium Carbon Dioxide Anion Gap BUN Creatinine Est GFR ( Amer) Est GFR (Non-Af Amer) POC Glucose (mg/dL) Random Glucose Hemoglobin A1c Calcium Phosphorus Magnesium Iron TIBC % Saturation Total Bilirubin AST ALT Alkaline Phosphatase C-React Prot High Sens Total Protein Albumin Globulin Albumin/Globulin Ratio Venous Blood Potassium Urine Color Urine Appearance Urine pH Ur Specific [place] Urine Protein Urine Glucose (UA) Urine Ketones Urine Blood Urine Nitrate Urine Bilirubin Urine Urobilinogen Ur Leukocyte Esterase Urine Opiates Screen Urine Methadone Screen Ur Barbiturates Screen Ur Phencyclidine Scrn Ur Amphetamines Screen U Benzodiazepines Scrn U Oth Cocaine Metabols U Cannabinoids Screen Alcohol, Quantitative HIV 1&2 Ag/Ab, 4th Gen Fingerstick Blood Sugar Results: 128 Results Reviewed to Date: Yes Critical Care Progress Note - Nutrition Nutrition: Nutrition Category Date Time Status NPO Diet [DIET] Diets 04/20/17 Breakfast Ordered Assessment/Plan - Assessment and Plan (Free Text) Assessment: 41 y/o male with PMHx of IDDM, previous episodes of DKA, HTN, HLD, gastritis, recent dx of osteomyelitis (on 4th week of Rocephin via PICC line) and GI bleed who presents with DKA and anemia. DKA has resolved, patient is s/p 3 units of prbc transfusion with improvement in hgb. Plan: Neuro- stable at baseline. Pulm: stable at baseline, nasal cannula prn to maintain o2 sat above 90%. Cardiac: Tachycardia likely due to anemia on admission, has since resolved. Maintain MAP above 65%. GI: questionable history of GI mass. pending record from [facility] [place]. gi on consult due to questionable gi bleeding. on protonix and zofran prn. NPO pending gi clearance. Renal: Maintain euvolemia. Endo: DKA resolved yesterday, now on basal insulin, levemir at 10 unist sc hs. and insulin sliding scale. Maintain euglycemia. ID: Hx of osteomyelitis in the right heel; s/p left 5th digit amputation, with elevated crp. - continue rocephin (pt is on the 4th week of rocephin treatment) -ID and podiatry following. Heme/Onc: acute on chronic anemia s/p 3 units of prbc transfusion with improvement in hgb. - anemia work up pending, will continue to monitor. DVT ppx: mechanical devices. Dispo: Patient is hemodynamically stable and to be transfered to [facility]. Patient was seen, examined and discussed with attending, Dr. Hernandez - Date & Time Date: 04/21/17 Time: 10:55 <Jony Hernandez - Last Filed: 04/21/17 11:05> CCU Objective - Vital Signs / Intake & Output Vital Signs (Last 4 hours): Vital Signs Pulse Resp BP Pulse Ox 04/21/17 09:00 90 12 100 04/21/17 08:50 94 H 100 04/21/17 08:49 91 H 19 04/21/17 08:45 96 H 22 115/73 100 04/21/17 08:40 91 H 17 100 04/21/17 08:30 90 12 119/59 L 100 04/21/17 08:20 90 19 94 L 04/21/17 08:15 93 H 14 109/65 100 04/21/17 08:10 91 H 11 L 100 04/21/17 08:00 90 15 116/68 100 04/21/17 07:50 90 26 H 100 04/21/17 07:45 94 H 16 111/71 100 04/21/17 07:40 94 H 14 100 03/01/18 07:36 96 H 14 04/21/17 07:30 93 H 20 122/73 96 04/21/17 07:20 90 13 100 04/21/17 07:10 91 H 15 88 L Intake and Output (Last 8hrs): Intake & Output 04/20/17 04/21/17 04/21/17 22:59 06:59 14:59 Intake Total 2825 Output Total 1300 Balance 1525 Intake: IV 2250 Right Upper arm 2250 Blood Product 570 Apheresis Rbc Cp2d As3 Lr 285 1st Unit [id number] Other 5 Apheresis Rbc Cp2d As3 Lr 5 1st Unit [id number] Output: Urine 1300 Urine, Voided 1300 - Medications Active Medications: Active Medications Generic Name Dose Route Start Last Admin Trade Name Freq PRN Reason Stop Dose Admin Acetaminophen 325 mg 04/19/17 23:42 Tylenol 325 Mg Supp RC Q6 PRN Fever >100.4 F Pantoprazole Sodium 40 mg in 100 mls @ 20 mls/hr 04/19/17 23:45 04/21/17 07: 37 Protonix 40mg Ivpb IVPB 20 mls/hr .Q5H GABI Administration Ceftriaxone Sodium 2 gm in 100 mls @ 100 mls/hr 04/20/17 10:00 04/21/17 10:48 Rocephin 2 Gm Ivpb IVPB 100 mls/hr DAILY GABI Administration Protocol Sodium Chloride 1,000 mls @ 100 mls/hr 04/20/17 17:30 04/21/17 03:04 Sodium Chloride 0.9% IV 100 mls/hr .Q10H GABI Administration Insulin Detemir 10 unit 04/21/17 09:08 04/21/17 10:50 Levemir SC 10 unit HS GABI Administration Insulin Human Lispro 0 units 04/20/17 12:00 04/21/17 10:49 Humalog Med SC 5 units Q4 GABI Administration Protocol Mupirocin 0 gm 04/21/17 06:00 04/21/17 10:48 Bactroban Ointment TOP 1 dose BID GABI Administration Ondansetron HCl 4 mg 04/20/17 07:54 Zofran Inj IVP Q4H PRN Nausea/Vomiting - Patient Studies Lab Studies: Microbiology Studies 04/20/17 06:10 Blood Culture - Preliminary Blood NO GROWTH AFTER 24 HOURS Lab Studies 04/21/17 04/21/17 04/21/17 Range/Units 06:15 06:15 03:41 WBC 7.3 D (4.5-11.0) 10^3/ul RBC 2.74 L (3.5-6.1) 10^6/uL Hgb 8.3 L (14.0-18.0) g/dL Hct 23.8 L (42.0-52.0) % MCV 86.9 (80.0-105.0) fl MCH 30.3 (25.0-35.0) pg MCHC 34.9 (31.0-37.0) g/dl RDW 14.6 H (11.5-14.5) % Plt Count 349 (120.0-450.0) 10^3/uL MPV 8.5 (7.0-11.0) fl Gran % 66.8 (50.0-68.0) % Lymph % (Auto) 21.4 L (22.0-35.0) % Hart % (Auto) 9.9 H (1.0-6.0) % Eos % (Auto) 1.8 (1.5-5.0) % Baso % (Auto) 0.1 (0.0-3.0) % Gran # 4.88 (1.4-6.5) Lymph # (Auto) 1.6 (1.2-3.4) Hart # (Auto) 0.7 H (0.1-0.6) Eos # (Auto) 0.1 (0.0-0.7) Baso # (Auto) 0.01 (0.0-2.0) K/mm3 ESR (0.0-15.0) mm/hr Sodium 142 (132-148) mmol/L Potassium 3.6 (3.6-5.0) mmol/L Chloride 112 H (98-107) mmol/L Carbon Dioxide 20 L (21-33) mmol/L Anion Gap 14 (10-20) BUN 18 (7-21) mg/dL Creatinine 0.7 L (0.8-1.5) mg/dl Est GFR ( Amer) > 60 Est GFR (Non-Af Amer) > 60 POC Glucose (mg/dL) 128 H (65-110) mg/dL Random Glucose 190 H (70-110) mg/dL Hemoglobin A1c (4.2-6.5) % Calcium 8.4 (8.4-10.5) mg/dL Phosphorus 2.9 (2.5-4.5) mg/dL Magnesium 2.1 (1.7-2.2) mg/dL Iron (45-180) ug/dL TIBC (261-462) ug/dL % Saturation (20-55) % Total Bilirubin 0.3 (0.2-1.3) mg/dL AST 27 (17-59) U/L ALT 21 (7-56) U/L Alkaline Phosphatase 55 (38-126) U/L C-React Prot High Sens (1.00-3.00) mg/L Total Protein 4.7 L (5.8-8.3) g/dL Albumin 2.2 L (3.0-4.8) g/dL Globulin 2.5 gm/dL Albumin/Globulin Ratio 0.9 L (1.1-1.8) Urine Opiates Screen (NEGATIVE) Urine Methadone Screen (NEGATIVE) Ur Barbiturates Screen (NEGATIVE) Ur Phencyclidine Scrn (NEGATIVE) Ur Amphetamines Screen (NEGATIVE) U Benzodiazepines Scrn (NEGATIVE) U Oth Cocaine Metabols (NEGATIVE) U Cannabinoids Screen (NEGATIVE) HIV 1&2 Ag/Ab, 4th Gen (Nonreactive) 04/20/17 04/20/17 04/20/17 Range/Units 23:39 19:59 18:24 WBC (4.5-11.0) 10^3/ul RBC (3.5-6.1) 10^6/uL Hgb (14.0-18.0) g/dL Hct (42.0-52.0) % MCV (80.0-105.0) fl MCH (25.0-35.0) pg MCHC (31.0-37.0) g/dl RDW (11.5-14.5) % Plt Count (120.0-450.0) 10^3/uL MPV (7.0-11.0) fl Gran % (50.0-68.0) % Lymph % (Auto) (22.0-35.0) % Hart % (Auto) (1.0-6.0) % Eos % (Auto) (1.5-5.0) % Baso % (Auto) (0.0-3.0) % Gran # (1.4-6.5) Lymph # (Auto) (1.2-3.4) Hart # (Auto) (0.1-0.6) Eos # (Auto) (0.0-0.7) Baso # (Auto) (0.0-2.0) K/mm3 ESR (0.0-15.0) mm/hr Sodium (132-148) mmol/L Potassium (3.6-5.0) mmol/L Chloride (98-107) mmol/L Carbon Dioxide (21-33) mmol/L Anion Gap (10-20) BUN (7-21) mg/dL Creatinine (0.8-1.5) mg/dl Est GFR ( Amer) Est GFR (Non-Af Amer) POC Glucose (mg/dL) 113 H 137 H (65-110) mg/dL Random Glucose (70-110) mg/dL Hemoglobin A1c (4.2-6.5) % Calcium (8.4-10.5) mg/dL Phosphorus (2.5-4.5) mg/dL Magnesium (1.7-2.2) mg/dL Iron 115 (45-180) ug/dL TIBC 186 L (261-462) ug/dL % Saturation 62 H (20-55) % Total Bilirubin (0.2-1.3) mg/dL AST (17-59) U/L ALT (7-56) U/L Alkaline Phosphatase (38-126) U/L C-React Prot High Sens (1.00-3.00) mg/L Total Protein (5.8-8.3) g/dL Albumin (3.0-4.8) g/dL Globulin gm/dL Albumin/Globulin Ratio (1.1-1.8) Urine Opiates Screen (NEGATIVE) Urine Methadone Screen (NEGATIVE) Ur Barbiturates Screen (NEGATIVE) Ur Phencyclidine Scrn (NEGATIVE) Ur Amphetamines Screen (NEGATIVE) U Benzodiazepines Scrn (NEGATIVE) U Oth Cocaine Metabols (NEGATIVE) U Cannabinoids Screen (NEGATIVE) HIV 1&2 Ag/Ab, 4th Gen (Nonreactive) 04/20/17 04/20/17 04/20/17 Range/Units 18:24 14:21 12:00 WBC (4.5-11.0) 10^3/ul RBC (3.5-6.1) 10^6/uL Hgb 8.3 L (14.0-18.0) g/dL Hct 23.5 L (42.0-52.0) % MCV (80.0-105.0) fl MCH (25.0-35.0) pg MCHC (31.0-37.0) g/dl RDW (11.5-14.5) % Plt Count (120.0-450.0) 10^3/uL MPV (7.0-11.0) fl Gran % (50.0-68.0) % Lymph % (Auto) (22.0-35.0) % Hart % (Auto) (1.0-6.0) % Eos % (Auto) (1.5-5.0) % Baso % (Auto) (0.0-3.0) % Gran # (1.4-6.5) Lymph # (Auto) (1.2-3.4) Hart # (Auto) (0.1-0.6) Eos # (Auto) (0.0-0.7) Baso # (Auto) (0.0-2.0) K/mm3 ESR (0.0-15.0) mm/hr Sodium 142 (132-148) mmol/L Potassium 4.0 (3.6-5.0) mmol/L Chloride 112 H (98-107) mmol/L Carbon Dioxide 21 (21-33) mmol/L Anion Gap 14 (10-20) BUN 41 H (7-21) mg/dL Creatinine 0.9 (0.8-1.5) mg/dl Est GFR ( Amer) > 60 Est GFR (Non-Af Amer) > 60 POC Glucose (mg/dL) 122 H (65-110) mg/dL Random Glucose 129 H (70-110) mg/dL Hemoglobin A1c (4.2-6.5) % Calcium 8.3 L (8.4-10.5) mg/dL Phosphorus (2.5-4.5) mg/dL Magnesium (1.7-2.2) mg/dL Iron (45-180) ug/dL TIBC (261-462) ug/dL % Saturation (20-55) % Total Bilirubin 0.1 L (0.2-1.3) mg/dL AST 12 L D (17-59) U/L ALT 29 (7-56) U/L Alkaline Phosphatase 48 (38-126) U/L C-React Prot High Sens (1.00-3.00) mg/L Total Protein 4.4 L (5.8-8.3) g/dL Albumin 2.2 L (3.0-4.8) g/dL Globulin 2.2 gm/dL Albumin/Globulin Ratio 1.0 L (1.1-1.8) Urine Opiates Screen (NEGATIVE) Urine Methadone Screen (NEGATIVE) Ur Barbiturates Screen (NEGATIVE) Ur Phencyclidine Scrn (NEGATIVE) Ur Amphetamines Screen (NEGATIVE) U Benzodiazepines Scrn (NEGATIVE) U Oth Cocaine Metabols (NEGATIVE) U Cannabinoids Screen (NEGATIVE) HIV 1&2 Ag/Ab, 4th Gen (Nonreactive) 04/20/17 04/20/17 04/20/17 Range/Units 12:00 12:00 11:30 WBC 11.3 H D (4.5-11.0) 10^3/ul RBC 2.40 L (3.5-6.1) 10^6/uL Hgb 7.3 L (14.0-18.0) g/dL Hct 20.4 L* (42.0-52.0) % MCV 85.0 (80.0-105.0) fl MCH 30.4 (25.0-35.0) pg MCHC 35.8 (31.0-37.0) g/dl RDW 13.6 (11.5-14.5) % Plt Count 381 (120.0-450.0) 10^3/uL MPV 8.4 (7.0-11.0) fl Gran % (50.0-68.0) % Lymph % (Auto) (22.0-35.0) % Hart % (Auto) (1.0-6.0) % Eos % (Auto) (1.5-5.0) % Baso % (Auto) (0.0-3.0) % Gran # (1.4-6.5) Lymph # (Auto) (1.2-3.4) Hart # (Auto) (0.1-0.6) Eos # (Auto) (0.0-0.7) Baso # (Auto) (0.0-2.0) K/mm3 ESR 20 H (0.0-15.0) mm/hr Sodium (132-148) mmol/L Potassium (3.6-5.0) mmol/L Chloride (98-107) mmol/L Carbon Dioxide (21-33) mmol/L Anion Gap (10-20) BUN (7-21) mg/dL Creatinine (0.8-1.5) mg/dl Est GFR ( Amer) Est GFR (Non-Af Amer) POC Glucose (mg/dL) (65-110) mg/dL Random Glucose (70-110) mg/dL Hemoglobin A1c (4.2-6.5) % Calcium (8.4-10.5) mg/dL Phosphorus (2.5-4.5) mg/dL Magnesium (1.7-2.2) mg/dL Iron (45-180) ug/dL TIBC (261-462) ug/dL % Saturation (20-55) % Total Bilirubin (0.2-1.3) mg/dL AST (17-59) U/L ALT (7-56) U/L Alkaline Phosphatase (38-126) U/L C-React Prot High Sens > 15.00 H (1.00-3.00) mg/L Total Protein (5.8-8.3) g/dL Albumin (3.0-4.8) g/dL Globulin gm/dL Albumin/Globulin Ratio (1.1-1.8) Urine Opiates Screen Negative (NEGATIVE) Urine Methadone Screen Negative (NEGATIVE) Ur Barbiturates Screen Negative (NEGATIVE) Ur Phencyclidine Scrn Negative (NEGATIVE) Ur Amphetamines Screen Negative (NEGATIVE) U Benzodiazepines Scrn Negative (NEGATIVE) U Oth Cocaine Metabols Negative (NEGATIVE) U Cannabinoids Screen Negative (NEGATIVE) HIV 1&2 Ag/Ab, 4th Gen (Nonreactive) 02/28/18 02/28/18 02/28/18 Range/Units 11:02 06:30 06:30 WBC (4.5-11.0) 10^3/ul RBC (3.5-6.1) 10^6/uL Hgb (14.0-18.0) g/dL Hct (42.0-52.0) % MCV (80.0-105.0) fl MCH (25.0-35.0) pg MCHC (31.0-37.0) g/dl RDW (11.5-14.5) % Plt Count (120.0-450.0) 10^3/uL MPV (7.0-11.0) fl Gran % (50.0-68.0) % Lymph % (Auto) (22.0-35.0) % Hart % (Auto) (1.0-6.0) % Eos % (Auto) (1.5-5.0) % Baso % (Auto) (0.0-3.0) % Gran # (1.4-6.5) Lymph # (Auto) (1.2-3.4) Hart # (Auto) (0.1-0.6) Eos # (Auto) (0.0-0.7) Baso # (Auto) (0.0-2.0) K/mm3 ESR (0.0-15.0) mm/hr Sodium (132-148) mmol/L Potassium (3.6-5.0) mmol/L Chloride (98-107) mmol/L Carbon Dioxide (21-33) mmol/L Anion Gap (10-20) BUN (7-21) mg/dL Creatinine (0.8-1.5) mg/dl Est GFR ( Amer) Est GFR (Non-Af Amer) POC Glucose (mg/dL) 137 H (65-110) mg/dL Random Glucose (70-110) mg/dL Hemoglobin A1c 8.2 H (4.2-6.5) % Calcium (8.4-10.5) mg/dL Phosphorus (2.5-4.5) mg/dL Magnesium (1.7-2.2) mg/dL Iron (45-180) ug/dL TIBC (261-462) ug/dL % Saturation (20-55) % Total Bilirubin (0.2-1.3) mg/dL AST (17-59) U/L ALT (7-56) U/L Alkaline Phosphatase (38-126) U/L C-React Prot High Sens (1.00-3.00) mg/L Total Protein (5.8-8.3) g/dL Albumin (3.0-4.8) g/dL Globulin gm/dL Albumin/Globulin Ratio (1.1-1.8) Urine Opiates Screen (NEGATIVE) Urine Methadone Screen (NEGATIVE) Ur Barbiturates Screen (NEGATIVE) Ur Phencyclidine Scrn (NEGATIVE) Ur Amphetamines Screen (NEGATIVE) U Benzodiazepines Scrn (NEGATIVE) U Oth Cocaine Metabols (NEGATIVE) U Cannabinoids Screen (NEGATIVE) HIV 1&2 Ag/Ab, 4th Gen Nonreactive (Nonreactive) Laboratory Results - last 24 hr 04/20/17 04/20/17 04/20/17 06:30 06:30 11:02 WBC RBC Hgb Hct MCV MCH MCHC RDW Plt Count MPV Gran % Lymph % (Auto) Hart % (Auto) Eos % (Auto) Baso % (Auto) Gran # Lymph # (Auto) Hart # (Auto) Eos # (Auto) Baso # (Auto) ESR Sodium Potassium Chloride Carbon Dioxide Anion Gap BUN Creatinine Est GFR ( Amer) Est GFR (Non-Af Amer) POC Glucose (mg/dL) 137 H Random Glucose Hemoglobin A1c 8.2 H Calcium Phosphorus Magnesium Iron TIBC % Saturation Total Bilirubin AST ALT Alkaline Phosphatase C-React Prot High Sens Total Protein Albumin Globulin Albumin/Globulin Ratio Urine Opiates Screen Urine Methadone Screen Ur Barbiturates Screen Ur Phencyclidine Scrn Ur Amphetamines Screen U Benzodiazepines Scrn U Oth Cocaine Metabols U Cannabinoids Screen HIV 1&2 Ag/Ab, 4th Gen Nonreactive 04/20/17 04/20/17 04/20/17 11:30 12:00 12:00 WBC 11.3 H D RBC 2.40 L Hgb 7.3 L Hct 20.4 L* MCV 85.0 MCH 30.4 MCHC 35.8 RDW 13.6 Plt Count 381 MPV 8.4 Gran % Lymph % (Auto) Hart % (Auto) Eos % (Auto) Baso % (Auto) Gran # Lymph # (Auto) Hart # (Auto) Eos # (Auto) Baso # (Auto) ESR 20 H Sodium Potassium Chloride Carbon Dioxide Anion Gap BUN Creatinine Est GFR ( Amer) Est GFR (Non-Af Amer) POC Glucose (mg/dL) Random Glucose Hemoglobin A1c Calcium Phosphorus Magnesium Iron TIBC % Saturation Total Bilirubin AST ALT Alkaline Phosphatase C-React Prot High Sens > 15.00 H Total Protein Albumin Globulin Albumin/Globulin Ratio Urine Opiates Screen Negative Urine Methadone Screen Negative Ur Barbiturates Screen Negative Ur Phencyclidine Scrn Negative Ur Amphetamines Screen Negative U Benzodiazepines Scrn Negative U Oth Cocaine Metabols Negative U Cannabinoids Screen Negative HIV 1&2 Ag/Ab, 4th Gen 04/20/17 04/20/17 04/20/17 12:00 14:21 18:24 WBC RBC Hgb 8.3 L Hct 23.5 L MCV MCH MCHC RDW Plt Count MPV Gran % Lymph % (Auto) Hart % (Auto) Eos % (Auto) Baso % (Auto) Gran # Lymph # (Auto) Hart # (Auto) Eos # (Auto) Baso # (Auto) ESR Sodium 142 Potassium 4.0 Chloride 112 H Carbon Dioxide 21 Anion Gap 14 BUN 41 H Creatinine 0.9 Est GFR ( Amer) > 60 Est GFR (Non-Af Amer) > 60 POC Glucose (mg/dL) 122 H Random Glucose 129 H Hemoglobin A1c Calcium 8.3 L Phosphorus Magnesium Iron TIBC % Saturation Total Bilirubin 0.1 L AST 12 L D ALT 29 Alkaline Phosphatase 48 C-React Prot High Sens Total Protein 4.4 L Albumin 2.2 L Globulin 2.2 Albumin/Globulin Ratio 1.0 L Urine Opiates Screen Urine Methadone Screen Ur Barbiturates Screen Ur Phencyclidine Scrn Ur Amphetamines Screen U Benzodiazepines Scrn U Oth Cocaine Metabols U Cannabinoids Screen HIV 1&2 Ag/Ab, 4th Gen 04/20/17 04/20/17 04/20/17 18:24 19:59 23:39 WBC RBC Hgb Hct MCV MCH MCHC RDW Plt Count MPV Gran % Lymph % (Auto) Hart % (Auto) Eos % (Auto) Baso % (Auto) Gran # Lymph # (Auto) Hart # (Auto) Eos # (Auto) Baso # (Auto) ESR Sodium Potassium Chloride Carbon Dioxide Anion Gap BUN Creatinine Est GFR ( Amer) Est GFR (Non-Af Amer) POC Glucose (mg/dL) 137 H 113 H Random Glucose Hemoglobin A1c Calcium Phosphorus Magnesium Iron 115 TIBC 186 L % Saturation 62 H Total Bilirubin AST ALT Alkaline Phosphatase C-React Prot High Sens Total Protein Albumin Globulin Albumin/Globulin Ratio Urine Opiates Screen Urine Methadone Screen Ur Barbiturates Screen Ur Phencyclidine Scrn Ur Amphetamines Screen U Benzodiazepines Scrn U Oth Cocaine Metabols U Cannabinoids Screen HIV 1&2 Ag/Ab, 4th Gen 04/21/17 04/21/17 04/21/17 03:41 06:15 06:15 WBC 7.3 D RBC 2.74 L Hgb 8.3 L Hct 23.8 L MCV 86.9 MCH 30.3 MCHC 34.9 RDW 14.6 H Plt Count 349 MPV 8.5 Gran % 66.8 Lymph % (Auto) 21.4 L Hart % (Auto) 9.9 H Eos % (Auto) 1.8 Baso % (Auto) 0.1 Gran # 4.88 Lymph # (Auto) 1.6 Hart # (Auto) 0.7 H Eos # (Auto) 0.1 Baso # (Auto) 0.01 ESR Sodium 142 Potassium 3.6 Chloride 112 H Carbon Dioxide 20 L Anion Gap 14 BUN 18 Creatinine 0.7 L Est GFR ( Amer) > 60 Est GFR (Non-Af Amer) > 60 POC Glucose (mg/dL) 128 H Random Glucose 190 H Hemoglobin A1c Calcium 8.4 Phosphorus 2.9 Magnesium 2.1 Iron TIBC % Saturation Total Bilirubin 0.3 AST 27 ALT 21 Alkaline Phosphatase 55 C-React Prot High Sens Total Protein 4.7 L Albumin 2.2 L Globulin 2.5 Albumin/Globulin Ratio 0.9 L Urine Opiates Screen Urine Methadone Screen Ur Barbiturates Screen Ur Phencyclidine Scrn Ur Amphetamines Screen U Benzodiazepines Scrn U Oth Cocaine Metabols U Cannabinoids Screen HIV 1&2 Ag/Ab, 4th Gen Critical Care Progress Note - Nutrition Nutrition: Nutrition Category Date Time Status NPO Diet [DIET] Diets 04/20/17 Breakfast Ordered Assessment/Plan - Assessment and Plan (Free Text) Plan: atient seen and examined, on rounds with resident, agree with note with following additions/exceptions: Patient is 41 y/o male with PMHx of IDDM, previous episodes of DKA, HTN, HLD, gastritis, recent dx of osteomyelitis (on 4th week of Rocephin via PICC line) and GI bleed admitted with DKA and anemia. Currently afebrile, HD stable, comfortable in NAD. Labs with normal AG, off insulin drip, on Lantus, IVF hydration. Pt is kept NPO for anemia/GIB workup. GI and ID consulted. On antibiotics. Stable. [place] [facility] [place] [facility] [place]. DKA, resolved GIB Anemia Dehydration Osteomyelitis Recommend: - supp o2 as needed - antibiotics as per ID - IVF hydration - BP control - Lantus 10u BID - sliding scale - NPO - PPI drip - GI follow up - monitor CBC - GI ppx - DVT ppx, SCDs - stable transfer to telemetry
[2017-04-21 07:07] LABS: ALB/GLOB RATIO 0.9 (1.1-1.8); ALBUMIN 2.2 g/dL (3.0-4.8); ALT/SGPT 21 U/L (7-56); AST/SGOT 27 U/L (17-59); BLOOD UREA NITROGEN 18 mg/dL (7-21); CALCIUM 8.4 mg/dL (8.4-10.5); GFR AFRICAN-AMERICAN > 60; GFR NON-AFRICAN AMERICAN > 60; MAGNESIUM 2.1 mg/dL (1.7-2.2)
--- NOTE | 2017-04-21 09:20 | CP.PCM.PN ---
Subjective - Date & Time of Evaluation Date of Evaluation: 04/21/17 Time of Evaluation: 08:40 - Subjective Subjective: Comfortable, no fevers, not in distress. Objective - Vital Signs/Intake and Output Vital Signs (last 24 hours): Temp Pulse Resp BP Pulse Ox 98.9 F 89 13 120/69 100 04/21/17 05:00 04/21/17 06:50 04/21/17 06:50 04/21/17 06:45 04/21/17 06:50 - Medications Medications: Current Medications Acetaminophen (Tylenol 325 Mg Supp) 325 mg RC Q6 PRN PRN Reason: Fever >100.4 F Insulin Human Regular 100 (units/ Sodium Chloride) 100 mls @ 10 mls/hr IV .Q10H PRN; Protocol; 10 UNITS/HR PRN Reason: TITRATE PER MD ORDER Last Titration: 04/20/17 07:04 Dose: 4 units/hr, 4 mls/hr Pantoprazole Sodium (Protonix 40mg Ivpb) 40 mg in 100 mls @ 20 mls/hr IVPB .Q5H [facility] Last Admin: 04/21/17 07:37 Dose: 20 mls/hr Ceftriaxone Sodium (Rocephin 2 Gm Ivpb) 2 gm in 100 mls @ 100 mls/hr IVPB DAILY [facility] PRN Reason: Protocol Last Admin: 04/20/17 09:35 Dose: 100 mls/hr Sodium Chloride (Sodium Chloride 0.9%) 1,000 mls @ 100 mls/hr IV .Q10H [facility] Last Admin: 04/21/17 03:04 Dose: 100 mls/hr Insulin Human Lispro (Humalog Med) 0 units SC Q4 [facility] PRN Reason: Protocol Last Admin: 04/21/17 00:29 Dose: Not Given Mupirocin (Bactroban Ointment) 0 gm TOP BID [facility] Last Admin: 04/21/17 07:39 Dose: 1 dose Ondansetron HCl (Zofran Inj) 4 mg IVP Q4H PRN PRN Reason: Nausea/Vomiting - Labs Labs: 04/21/17 06:15 04/21/17 06:15 PT 11.9 SECONDS (9.4-12.5) 04/19/17 20:30 INR 1.04 (0.93-1.08) 04/19/17 20:30 APTT 27.0 Seconds (25.1-36.5) 04/19/17 20:30 - Constitutional Appears: Chronically Ill - Head Exam Head Exam: NORMAL INSPECTION - ENT Exam ENT Exam: Mucous Membranes Moist - Neck Exam Neck Exam: absent: Meningismus - Respiratory Exam Respiratory Exam: Decreased Breath Sounds - Cardiovascular Exam Cardiovascular Exam: +S1, +S2 - GI/Abdominal Exam GI & Abdominal Exam: Soft. absent: Tenderness - Extremities Exam Additional comments: right foot with dressings in place Assessment and Plan - Assessment and Plan (Free Text) Plan: Assessment Possible right foot osteomyelitis in this patient with Charcot foot of the right , currently on antibiotics coffee-ground emesis, etiology to be determined DM HTN dyslipidemia gastritis recent diagnosis of osteomyelitis of the right foot S/P appendectomy Plan Continue IV Rocephin for now and will [place] the [place] [facility] [place] he was first seen in [facility] but we currently have no records - will follow up follow up wound cx taken yesterday will continue to monitor clinically
[2017-04-21] MEDS: cefTRIAXone 2 GM IN NS 2 GM/100 ML BAG IVPB SCH (10:48)
[2017-04-21] MEDS: Insulin Detemir 100 units/ml Vial (Levemir) SC SCH ×2 (10:50→22:58)
--- NOTE | 2017-04-21 11:09 | CP.PCM.PN ---
<Faisal Pinon - Last Filed: 04/21/17 13:06> Subjective - Date & Time of Evaluation Date of Evaluation: 04/21/17 Time of Evaluation: 07:00 - Subjective Subjective: GI Progress Note - Dr. Macias Pt was seen and examined at bedside. No acute complaints at this time. Pt denied any signs of active bleeding. No further emesis or bowel movements since admission. He states he is feeling better than yesterday. Pt continues to be NPO. Pt denied fever, chills, sob, chest pains, abdominal pains, melena, hematochezia, or urinary symptoms. Objective - Vital Signs/Intake and Output Vital Signs (last 24 hours): Temp Pulse Resp BP Pulse Ox 98.9 F 90 12 115/73 100 04/21/17 05:00 04/21/17 09:00 04/21/17 09:00 04/21/17 08:45 04/21/17 09:00 - Medications Medications: Current Medications Acetaminophen (Tylenol 325 Mg Supp) 325 mg RC Q6 PRN PRN Reason: Fever >100.4 F Pantoprazole Sodium (Protonix 40mg Ivpb) 40 mg in 100 mls @ 20 mls/hr IVPB .Q5H [facility] Last Admin: 04/21/17 07:37 Dose: 20 mls/hr Ceftriaxone Sodium (Rocephin 2 Gm Ivpb) 2 gm in 100 mls @ 100 mls/hr IVPB DAILY [facility] PRN Reason: Protocol Last Admin: 04/21/17 10:48 Dose: 100 mls/hr Sodium Chloride (Sodium Chloride 0.9%) 1,000 mls @ 100 mls/hr IV .Q10H [facility] Last Admin: 04/21/17 03:04 Dose: 100 mls/hr Insulin Detemir (Levemir) 10 unit SC HS [facility] Last Admin: 04/21/17 10:50 Dose: 10 unit Insulin Human Lispro (Humalog Med) 0 units SC Q4 [facility] PRN Reason: Protocol Last Admin: 04/21/17 10:49 Dose: 5 units Mupirocin (Bactroban Ointment) 0 gm TOP BID [facility] Last Admin: 04/21/17 10:48 Dose: 1 dose Ondansetron HCl (Zofran Inj) 4 mg IVP Q4H PRN PRN Reason: Nausea/Vomiting - Labs Labs: 04/21/17 06:15 04/21/17 06:15 PT 11.9 SECONDS (9.4-12.5) 04/19/17 20:30 INR 1.04 (0.93-1.08) 04/19/17 20:30 APTT 27.0 Seconds (25.1-36.5) 04/19/17 20:30 - Constitutional Appears: No Acute Distress - Head Exam Head Exam: ATRAUMATIC, NORMAL INSPECTION, NORMOCEPHALIC - Eye Exam Eye Exam: EOMI, Normal appearance, PERRL Pupil Exam: NORMAL ACCOMODATION, PERRL - ENT Exam ENT Exam: Mucous Membranes Moist, Normal Exam - Respiratory Exam Respiratory Exam: Clear to Ausculation Bilateral, NORMAL BREATHING PATTERN - Cardiovascular Exam Cardiovascular Exam: REGULAR RHYTHM, +S1, +S2. absent: Murmur - GI/Abdominal Exam GI & Abdominal Exam: Soft, Normal Bowel Sounds. absent: Tenderness - Extremities Exam Extremities Exam: Tenderness Additional comments: rt ft bandaged - Neurological Exam Neurological Exam: Alert, Awake, CN II-XII Intact, Normal Gait, Oriented x3 - Psychiatric Exam Psychiatric exam: Normal Affect, Normal Mood - Skin Skin Exam: Dry, Intact, Normal Color, Warm Assessment and Plan - Assessment and Plan (Free Text) Assessment: 41 M with a PMHx of DM1, DKA, HTN, HLD, gastritis, recent dx of osteomyelitis on IV abx and history of GI bleed that presented to [facility] ED with complaints of fatigue, nausea and vomiting x 1 day admitted to ICU for DKA with a AGAP of 32 that has since closed and has switched from insulin drip to SC insulin and continue IVF. Pt also found to have asymptomatic normocytic anemia, we will retrieve medical records from [facility] for further analysis of previous upper GI bleed suspected to be secondary to GI mass. Pt vitals have remained stable. Patient is continued on PPI. s/p 2 units blood transfusion with appropriate response will continue to monitor H&H. Continue IV abx for OM of foot. ADAT Will follow up with [facility] records for appropriate followup, pt requesting GI outpt fu closer to his home, Rohit <Susu Macias V - Last Filed: 04/21/17 23:08> Objective - Vital Signs/Intake and Output Vital Signs (last 24 hours): Temp Pulse Resp BP Pulse Ox 98 F 95 H 20 125/74 100 04/21/17 16:00 04/21/17 18:00 04/21/17 16:00 04/21/17 16:00 04/21/17 16:00 Intake and Output: 04/21/17 04/22/17 18:59 06:59 Intake Total 620 Output Total 350 Balance 270 - Medications Medications: Current Medications Acetaminophen (Tylenol 325mg Tab) 650 mg PO Q6H PRN PRN Reason: Fever >100.4 F Last Admin: 04/21/17 17:50 Dose: 650 mg Ceftriaxone Sodium (Rocephin 2 Gm Ivpb) 2 gm in 100 mls @ 100 mls/hr IVPB DAILY [facility] PRN Reason: Protocol Last Admin: 04/21/17 10:48 Dose: 100 mls/hr Sodium Chloride (Sodium Chloride 0.9%) 1,000 mls @ 100 mls/hr IV .Q10H [facility] Last Admin: 04/21/17 23:03 Dose: 100 mls/hr Insulin Detemir (Levemir) 10 unit SC HS [facility] Last Admin: 04/21/17 22:58 Dose: 10 unit Insulin Human Lispro (Humalog Med) 0 units SC Q6 [facility] PRN Reason: Protocol Last Admin: 04/21/17 18:29 Dose: 3 units Mupirocin (Bactroban Ointment) 0 gm TOP BID [facility] Last Admin: 04/21/17 17:43 Dose: 1 applic Ondansetron HCl (Zofran Inj) 4 mg IVP Q4H PRN PRN Reason: Nausea/Vomiting Pantoprazole Sodium (Protonix Ec Tab) 40 mg PO 0600,1600 [facility] Last Admin: 04/21/17 16:12 Dose: 40 mg - Labs Labs: 04/21/17 06:15 04/21/17 06:15 PT 11.9 SECONDS (9.4-12.5) 04/19/17 20:30 INR 1.04 (0.93-1.08) 04/19/17 20:30 APTT 27.0 Seconds (25.1-36.5) 04/19/17 20:30 Attending/Attestation - Attestation I have personally seen and examined this patient.: Yes I have fully participated in the care of the patient.: Yes I have reviewed all pertinent clinical information, including history, physical exam and plan: Yes Notes (Text): This is an addendum to GI progress report dictated by the Nuclear Reactor Operator.The patient was seen and examined earlier. Medical records, lab studies, imagings were reviewed. Last 24 hours events reviewed. Agreed with the above treatment plan as outlined in Nuclear Reactor Operator 's notes the with the addition of the following 04/21/17 23:07
--- NOTE | 2017-04-21 14:15 | CP.PCM.PN ---
<Howard Soto - Last Filed: 04/21/17 14:12> Subjective - Date & Time of Evaluation Date of Evaluation: 04/21/17 Time of Evaluation: 14:12 - Subjective Subjective: Medicine Progress Note: Patient seen and assessed at bedside in ICU. No acute events overnight. Patient reports no vomiting or nausea but endorse a desire to eat. Patient denies fever , chills, headache, chest pain, palpitations, SOB, cough, abdominal pain, N/V/D/ C, urinary symptoms, skin changes, or any numbness/tingling/weakness of any extremity. Objective - Vital Signs/Intake and Output Vital Signs (last 24 hours): Temp Pulse Resp BP Pulse Ox 98.9 F 93 H 17 131/72 100 04/21/17 05:00 04/21/17 13:10 04/21/17 13:10 04/21/17 12:00 04/21/17 13:10 Intake and Output: 04/21/17 04/21/17 06:59 18:59 Intake Total 620 Output Total 350 Balance 270 - Medications Medications: Current Medications Acetaminophen (Tylenol 325 Mg Supp) 325 mg RC Q6 PRN PRN Reason: Fever >100.4 F Pantoprazole Sodium (Protonix 40mg Ivpb) 40 mg in 100 mls @ 20 mls/hr [facility]PB .[facility]5H [facility] Last Admin: 04/21/17 13:07 Dose: 20 mls/hr Ceftriaxone Sodium (Rocephin 2 Gm Ivpb) 2 gm in 100 mls @ 100 mls/hr IVPB DAILY [facility] PRN Reason: Protocol Last Admin: 04/21/17 10:48 Dose: 100 mls/hr Sodium Chloride (Sodium Chloride 0.9%) 1,000 mls @ 100 mls/hr IV .Q10H [facility] Last Admin: 04/21/17 13:05 Dose: 100 mls/hr Insulin Detemir (Levemir) 10 unit SC HS [facility] Last Admin: 04/21/17 10:50 Dose: 10 unit Insulin Human Lispro (Humalog Med) 0 units SC Q4 [facility] PRN Reason: Protocol Last Admin: 04/21/17 11:51 Dose: 5 units Mupirocin (Bactroban Ointment) 0 gm TOP BID [facility] Last Admin: 04/21/17 10:48 Dose: 1 dose Ondansetron HCl (Zofran Inj) 4 mg IVP Q4H PRN PRN Reason: Nausea/Vomiting - Labs Labs: 04/21/17 06:15 04/21/17 06:15 PT 11.9 SECONDS (9.4-12.5) 04/19/17 20:30 INR 1.04 (0.93-1.08) 04/19/17 20:30 APTT 27.0 Seconds (25.1-36.5) 04/19/17 20:30 - Constitutional Appears: Non-toxic, No Acute Distress - Head Exam Head Exam: ATRAUMATIC, NORMOCEPHALIC - Eye Exam Eye Exam: EOMI, PERRL Pupil Exam: NORMAL ACCOMODATION - ENT Exam ENT Exam: Mucous Membranes Moist - Neck Exam Neck Exam: Full ROM. absent: Lymphadenopathy - Respiratory Exam Respiratory Exam: Clear to Ausculation Bilateral, NORMAL BREATHING PATTERN. absent: Decreased Breath Sounds, Respiratory Distress - Cardiovascular Exam Cardiovascular Exam: REGULAR RHYTHM, RRR, +S1, +S2 - GI/Abdominal Exam GI & Abdominal Exam: Soft, Normal Bowel Sounds. absent: Distended, Firm, Guarding, Tenderness, Rebound - Extremities Exam Extremities Exam: Full ROM, Normal Capillary Refill. absent: Calf Tenderness, Joint Swelling, Pedal Edema, Tenderness Additional comments: Right LE wound dressing clean, dry and intact - Back Exam Back Exam: NORMAL INSPECTION - Neurological Exam Neurological Exam: Alert, Awake, CN II-XII Intact, Oriented x3 - Psychiatric Exam Psychiatric exam: Normal Affect, Normal Mood - Skin Skin Exam: Dry, Intact, Normal Color, Warm Assessment and Plan - Assessment and Plan (Free Text) Assessment: 41 year old male with a past medical history significant for DMT1 with multiple prior episodes of DKA, HTN, HLD, gastritis, recent dx of osteomyelitis (s/p R 5th metatarsal amputation), and GI bleed who presented to [facility] for fatigue, weakness, nausea, and reported episode of coffee-ground emesis. He was found to be in DKA with an elevated anion gap of 32 and severe anemia likely secondary to upper GI bleed suspected to be secondary to GI mass. Gap is now closed, patient has been switched from insulin drip to long-acting and sliding scale coverage, and is on PO Protonix as his hemoglobin has been stable for 24 hours. No acute intervention is planned from GI at this time as we are awaiting prior records from [facility]. Plan: 1. Hematemesis -H/H stable at 8.3 s/p transfusion of two units of pRBC's -Protonix 40mg PO BID -Continue Zofran PRN for N/V -Advanced to Clear Liquid Diet with moderate carbohydrate consistency -GI with no plans for acute interventions at this time and will await results from [facility] before further recommendations -GI consulted, all recommendations appreciated 2. DKA -SSI-Med and Accuchecks Q6H -Levemir 10u SC HS -Moderate carbohydrate consistent clear liquid diet -Transferred to remote telemetry as he is no longer on insulin drip 3. RLE Osteomyelitis -Right foot X-Ray showed chronic appearing fractures with fragmentation of the proximal second and third metatarsals consistent with Charcot foot -Continue IV Rocephin -Continue Tylenol PRN for fever -Continue wound care -ID and Podiatry consulted, all recommendations appreciated GI Prophylaxis: Protonix DVT Prophylaxis: SCD's Patient seen and case discussed with attending, Dr. Johnston. <Harshad Johnston - Last Filed: 04/21/17 17:04> Objective - Vital Signs/Intake and Output Vital Signs (last 24 hours): Temp Pulse Resp BP Pulse Ox 98.9 F 93 H 17 131/72 100 04/21/17 05:00 04/21/17 13:10 04/21/17 13:10 04/21/17 12:00 04/21/17 13:10 Intake and Output: 04/21/17 04/21/17 06:59 18:59 Intake Total 620 Output Total 350 Balance 270 - Medications Medications: Current Medications Acetaminophen (Tylenol 325mg Tab) 650 mg PO Q6H PRN PRN Reason: Fever >100.4 F Ceftriaxone Sodium (Rocephin 2 Gm Ivpb) 2 gm in 100 mls @ 100 mls/hr IVPB DAILY [facility] PRN Reason: Protocol Last Admin: 04/21/17 10:48 Dose: 100 mls/hr Sodium Chloride (Sodium Chloride 0.9%) 1,000 mls @ 100 mls/hr IV .Q10H [facility] Last Admin: 04/21/17 13:05 Dose: 100 mls/hr Insulin Detemir (Levemir) 10 unit SC HS [facility] Last Admin: 04/21/17 10:50 Dose: 10 unit Insulin Human Lispro (Humalog Med) 0 units SC Q6 [facility] PRN Reason: Protocol Mupirocin (Bactroban Ointment) 0 gm TOP BID [facility] Last Admin: 04/21/17 10:48 Dose: 1 dose Ondansetron HCl (Zofran Inj) 4 mg IVP Q4H PRN PRN Reason: Nausea/Vomiting Pantoprazole Sodium (Protonix Ec Tab) 40 mg PO 0600,1600 [facility] Last Admin: 04/21/17 16:12 Dose: 40 mg - Labs Labs: 04/21/17 06:15 04/21/17 06:15 PT 11.9 SECONDS (9.4-12.5) 04/19/17 20:30 INR 1.04 (0.93-1.08) 04/19/17 20:30 APTT 27.0 Seconds (25.1-36.5) 04/19/17 20:30 Attending/Attestation - Attestation I have personally seen and examined this patient.: Yes I have fully participated in the care of the patient.: Yes I have reviewed all pertinent clinical information, including history, physical exam and plan: Yes Notes (Text): 04/21/17 17:01 41 year old male with past medical history of diabetes, hypertension, gastritis , and recently diagnosed osteomyelitis on iv antibiotics who presented with DKA. He was started on iv fluids and insulin drip. Anion gap was closed and drip was discontinued. He is started on levemir. Will continue to monitor. He also comlained of hematemesis. He reports recent admission at [facility] for GIB with EGD showed GI mass. Records for [facility] were requested but still pending. GI is following. Continue with iv protonix. Will follow up with GI recommendations. Diet advanced today to liquids. Continue to monitor cbc closely and transfuse as needed. He is currently on iv ceftiaxone for history of osteomyelitis. ID is following. Xray was reviewed and podiatry is following. He initially had SHON and hyperkalemia which have resolved. Hrashad Johnston MD Hospitalist.
[2017-04-21] MEDS: Pantoprazole 40 mg EC Tab PO SCH (16:12)
--- NOTE | 2017-04-21 17:34 | CP.PCM.PN ---
Subjective - Date & Time of Evaluation Date of Evaluation: 04/21/17 Time of Evaluation: 14:00 - Subjective Subjective: Podiatry Progress Note - Dr. Page 41M PMHx DM1, previous episodes of DKA, HTN, HLD, gastritis, hx OM, GI bleed, seen and evaluated at bedside for right foot ulceration. Patient is seen resting comfortably in bed, in NAD, and AAOx3. Patient reports that he is feeling better. He denies acute overnight events. Denies n/v/sob/cp/chils/f or d. Complains of being extremely hungry. No other pedal complaints Objective - Vital Signs/Intake and Output Vital Signs (last 24 hours): Temp Pulse Resp BP Pulse Ox 98 F 82 20 125/74 100 04/21/17 16:00 04/21/17 16:00 04/21/17 16:00 04/21/17 16:00 04/21/17 16:00 Intake and Output: 04/21/17 04/21/17 06:59 18:59 Intake Total 620 Output Total 350 Balance 270 - Medications Medications: Current Medications Acetaminophen (Tylenol 325mg Tab) 650 mg PO Q6H PRN PRN Reason: Fever >100.4 F Ceftriaxone Sodium (Rocephin 2 Gm Ivpb) 2 gm in 100 mls @ 100 mls/hr IVPB DAILY [facility] PRN Reason: Protocol Last Admin: 04/21/17 10:48 Dose: 100 mls/hr Sodium Chloride (Sodium Chloride 0.9%) 1,000 mls @ 100 mls/hr IV .Q10H [facility] Last Admin: 04/21/17 13:05 Dose: 100 mls/hr Insulin Detemir (Levemir) 10 unit SC HS [facility] Last Admin: 04/21/17 10:50 Dose: 10 unit Insulin Human Lispro (Humalog Med) 0 units SC Q6 [facility] PRN Reason: Protocol Mupirocin (Bactroban Ointment) 0 gm TOP BID [facility] Last Admin: 04/21/17 10:48 Dose: 1 dose Ondansetron HCl (Zofran Inj) 4 mg IVP Q4H PRN PRN Reason: Nausea/Vomiting Pantoprazole Sodium (Protonix Ec Tab) 40 mg PO 0600,1600 [facility] Last Admin: 04/21/17 16:12 Dose: 40 mg - Labs Labs: 03/01/18 06:15 04/21/17 06:15 PT 11.9 SECONDS (9.4-12.5) 04/19/17 20:30 INR 1.04 (0.93-1.08) 04/19/17 20:30 APTT 27.0 Seconds (25.1-36.5) 04/19/17 20:30 - Constitutional Appears: Well, Non-toxic, No Acute Distress - Extremities Exam Extremities Exam: absent: Calf Tenderness Additional comments: RLE focused physical exam VASC: DP and PT pulses palpable 2/4 b/l. CFT <3 seconds to all digits x4. Temperature gradient cool to cool. Nonpitting edema noted to LE. NEURO: Gross sensation absent. DERM: Ulceration noted to lateral aspect of right foot measuring approximately 0.5 x 0.5 cm - ulcer is noted to have a granular base with hyperkeratotic rim; mild serosanguinous drainage noted; no purulence, no fluctuance, no undermining , no tunneling; mild periwound erythema noted. ORTHO: Previous 5th ray amputation. - Neurological Exam Neurological Exam: Alert, Awake, Oriented x3 - Psychiatric Exam Psychiatric exam: Normal Affect, Normal Mood Assessment and Plan - Assessment and Plan (Free Text) Assessment: 41M extensive PMHx with right lateral foot ulceration 2/2 diabetic neuropathy Plan: Patient seen and evaluated with attending, Dr. Page Afebrile, WBC 7.3, ESR 20 Right foot XR (04/20/17): s/p amputation 5th metatarsal and toes; chronic fractures of proximal 2nd and 3rd metatarsals consistent with Charcot; no bony destruction to suggest OM Right foot ulceration WCx obtained, f/u report Continue local wound care - optifoam to right foot -Bactroban ordered for QD dressing changes Abx per ID - Continue IV Rocephin for now and will follow up the [place] [facility] [place] will continue to follow pateint while in house
[2017-04-22] MEDS: Insulin Lispro (humaLOG) MEDIUM Coverage SC SCH ×2 (00:19→06:08)
[2017-04-22 06:11] LABS: BASO # 0.01 K/mm3 (0.0-2.0); BASO % 0.2 % (0.0-3.0); EOS # 0.1 (0.0-0.7); EOS % 1.8 % (1.5-5.0); GRAN # 2.68 (1.4-6.5); GRAN % 47.1 % (50.0-68.0); HEMOGLOBIN 7.3 g/dL (14.0-18.0); LYMPH # 2.2 (1.2-3.4); LYMPH % 38.1 % (22.0-35.0); MEAN CELL VOLUME 87.4 fl (80.0-105.0); MEAN CORPUSCULAR HEMOGLOBIN 29.7 pg (25.0-35.0); MEAN PLATELET VOLUME 8.4 fl (7.0-11.0); MONO # 0.7 (0.1-0.6); MONO % 12.8 % (1.0-6.0); RBC 2.46 10^6/uL (3.5-6.1); RED CELL DISTRIBUTION WIDTH 14.3 % (11.5-14.5); WHITE BLOOD COUNT 5.7 10^3/ul (4.5-11.0)
[2017-04-22] MEDS: Pantoprazole 40 mg EC Tab PO SCH ×2 (06:51→17:11)
[2017-04-22 07:00] LABS: ALB/GLOB RATIO 0.8 (1.1-1.8); ALT/SGPT 27 U/L (7-56); AST/SGOT 21 U/L (17-59); BLOOD UREA NITROGEN 8 mg/dL (7-21); CALCIUM 8.1 mg/dL (8.4-10.5); GFR AFRICAN-AMERICAN > 60; GFR NON-AFRICAN AMERICAN > 60; MAGNESIUM 1.9 mg/dL (1.7-2.2)
[2017-04-22] MEDS: Insulin Lispro (humaLOG) LOW Coverage SC SCH ×4 (07:58→22:39)
[2017-04-22] MEDS: cefTRIAXone 2 GM IN NS 2 GM/100 ML BAG IVPB SCH (09:53)
[2017-04-22] MEDS: Potassium Chloride 40 mEq/30 ml LIQ UD PO SCH ×2 (10:14→12:58)
--- NOTE | 2017-04-22 10:59 | CP.PCM.PN ---
<Melvin Hathaway - Last Filed: 04/22/17 10:56> Subjective - Date & Time of Evaluation Date of Evaluation: 04/22/17 Time of Evaluation: 07:30 - Subjective Subjective: IM Progress Note for Hospitalist Service Patient seen and assessed at bedside on the floors, now out of the ICU. No acute events overnight. Patient was previously advanced to clear liquid diet and is tolerating well, still reports feeling very hungry, wants to eat more solid foods. Denies hematemesis, emesis, nausea, diarrhea, no blood observed with bowel movement yesterday. Denies chest pain, shortness of breath, focal or generalized weakness. Records from [facility] obtained, reviewed, GI findings on EGD notable for erosive gastritis, biopsies obtained but pathology not available yet at time of discharge from [facility] [place], patient was to follow up with GI as outpatient. GI service following here aware of results. Objective - Vital Signs/Intake and Output Vital Signs (last 24 hours): Temp Pulse Resp BP Pulse Ox 98.5 F 75 18 117/76 98 04/22/17 08:50 04/22/17 08:50 04/22/17 08:50 04/22/17 08:50 04/22/17 08:50 Intake and Output: 04/22/17 04/22/17 06:59 18:59 Intake Total 120 Output Total 1100 Balance -1100 120 - Medications Medications: Current Medications Acetaminophen (Tylenol 325mg Tab) 650 mg PO Q6H PRN PRN Reason: Fever >100.4 F Last Admin: 04/21/17 17:50 Dose: 650 mg Ceftriaxone Sodium (Rocephin 2 Gm Ivpb) 2 gm in 100 mls @ 100 mls/hr IVPB DAILY [facility] PRN Reason: Protocol Last Admin: 04/22/17 09:53 Dose: 100 mls/hr Sodium Chloride (Sodium Chloride 0.9%) 1,000 mls @ 100 mls/hr IV .Q10H [facility] Last Admin: 04/21/17 23:03 Dose: 100 mls/hr Insulin Detemir (Levemir) 7 unit SC HS [facility] Insulin Human Lispro (Humalog Low) 0 units SC ACHS [facility] PRN Reason: Protocol Last Admin: 04/22/17 07:58 Dose: Not Given Mupirocin (Bactroban Ointment) 0 gm TOP BID [facility] Last Admin: 04/22/17 09:53 Dose: 1 applic Ondansetron HCl (Zofran Inj) 4 mg IVP Q4H PRN PRN Reason: Nausea/Vomiting Pantoprazole Sodium (Protonix Ec Tab) 40 mg PO 0600,1600 [facility] Last Admin: 04/22/17 06:51 Dose: 40 mg Potassium Chloride (Potassium Chloride Oral Soln) 40 meq PO Q3H [facility] Stop: 04/22/17 12:46 Last Admin: 04/22/17 10:14 Dose: 40 meq - Labs Labs: 04/22/17 05:30 04/22/17 05:30 PT 11.9 SECONDS (9.4-12.5) 04/19/17 20:30 INR 1.04 (0.93-1.08) 04/19/17 20:30 APTT 27.0 Seconds (25.1-36.5) 04/19/17 20:30 - Neck Exam Neck Exam: Full ROM. absent: Tenderness - Additional Findings Additional findings: - Constitutional Appears: Non-toxic, No Acute Distress - Head Exam Head Exam: ATRAUMATIC, NORMOCEPHALIC - Eye Exam Eye Exam: EOMI, Normal appearance Pupil Exam: Absent: Irregular, Unequal - ENT Exam ENT Exam: Mucous Membranes Moist - Neck Exam Neck Exam: Full ROM. absent: Lymphadenopathy - Respiratory Exam Respiratory Exam: Clear to Ausculation Bilateral, NORMAL BREATHING PATTERN. absent: Decreased Breath Sounds, Respiratory Distress - Cardiovascular Exam Cardiovascular Exam: REGULAR RHYTHM, RRR, +S1, +S2 - GI/Abdominal Exam GI & Abdominal Exam: Soft, Normal Bowel Sounds. absent: Distended, Firm, Guarding, Tenderness, Rebound - Extremities Exam Extremities Exam: Full ROM, Normal Capillary Refill. absent: Calf Tenderness, Joint Swelling, Pedal Edema, Tenderness Additional comments: Right LE wound dressing clean, dry and intact, no bleeding or oozing through bandaging - Neurological Exam Neurological Exam: Alert, Awake, Oriented x3, motor grossly intact and equal bilaterally in bed, changes positions and moves from lying to sitting in bed without difficulty - Psychiatric Exam Psychiatric exam: Normal Affect, Normal Mood - Skin Skin Exam: Dry, Intact, Normal Color, Warm Assessment and Plan - Assessment and Plan (Free Text) Assessment: 41 year old male with a past medical history significant for DMT1 with multiple prior episodes of DKA, HTN, HLD, gastritis, recent dx of osteomyelitis (s/p R 5th metatarsal amputation), and GI bleed who [place] [facility] [place] fatigue, weakness, nausea, and reported episode of coffee-ground emesis. He was found to be in DKA with an elevated anion gap of 32 and severe anemia likely secondary to upper GI bleed suspected to be secondary to GI mass. Gap is now closed, patient has been switched from insulin drip to long-acting and sliding scale coverage, and is on PO Protonix as his hemoglobin has been stable for 24 hours. No acute intervention is planned from GI, advancing diet as tolerated and instructed patient to follow up with GI as outpatient. Plan: 1. Hematemesis -H/H decreasing again, from 8.3 to 7.3 this AM, pending recheck H&H at noon, if lower, will need additional transfusion -Protonix 40mg PO BID -Continue Zofran PRN for N/V -Tolerating clear liquid diet, advanced to soft diet moderate consistent carb -GI with no plans for acute interventions at this time, advance diet as tolerated, continue PPI, carafate, avoid smoking, and follow up with GI in 2 months for repeat EGD -GI consulted, all recommendations appreciated 2. DKA - resolved -Gap closed, off insulin drip, now on long-acting + sliding scale insulin -Hypoglycemic to 51 this AM, responded to PO orange juice x3, improved to 91. -Decreased Long-acting insulin to 7 units HS, decreased sliding scale to Low -Moderate carbohydrate consistent soft diet 3. RLE Osteomyelitis -Right foot X-Ray showed chronic appearing fractures with fragmentation of the proximal second and third metatarsals consistent with Charcot foot -Continue IV Rocephin -Continue Tylenol PRN for fever -Continue wound care -ID and Podiatry consulted, all recommendations appreciated 4. Hypokalemia -K 3.0 today, was 3.6 -avoid KCl pills due to risk of gastritis, concern for GI bleed -KCl solution 40mEq ordered q3H for 2 doses, follow up on AM labs and replete additionally as needed Dispo: Remote telemetry, pending repeat H&H and diet advancement as tolerated FEN: Advanced to soft moderate consistent carb diet, NS 100cc/hr Access: Peripheral IVs, PICC line Consults: GI, Podiatry, ID Ppx: Protonix BID covers GI, SCDs for DVT, avoid AC in setting of likely GI bleed Patient seen and case discussed with attending, Dr. Johnston. <Harshad Johnston - Last Filed: 04/22/17 11:26> Objective - Vital Signs/Intake and Output Vital Signs (last 24 hours): Temp Pulse Resp BP Pulse Ox 98.5 F 75 18 117/76 98 04/22/17 08:50 04/22/17 08:50 04/22/17 08:50 04/22/17 08:50 04/22/17 08:50 Intake and Output: 04/22/17 04/22/17 06:59 18:59 Intake Total 120 Output Total 1100 Balance -1100 120 - Medications Medications: Current Medications Acetaminophen (Tylenol 325mg Tab) 650 mg PO Q6H PRN PRN Reason: Fever >100.4 F Last Admin: 04/21/17 17:50 Dose: 650 mg Ceftriaxone Sodium (Rocephin 2 Gm Ivpb) 2 gm in 100 mls @ 100 mls/hr IVPB DAILY [facility] PRN Reason: Protocol Last Admin: 04/22/17 09:53 Dose: 100 mls/hr Sodium Chloride (Sodium Chloride 0.9%) 1,000 mls @ 100 mls/hr IV .Q10H [facility] Last Admin: 04/21/17 23:03 Dose: 100 mls/hr Insulin Detemir (Levemir) 7 unit SC HS [facility] Insulin Human Lispro (Humalog Low) 0 units SC ACHS [facility] PRN Reason: Protocol Last Admin: 04/22/17 07:58 Dose: Not Given Mupirocin (Bactroban Ointment) 0 gm TOP BID [facility] Last Admin: 04/22/17 09:53 Dose: 1 applic Ondansetron HCl (Zofran Inj) 4 mg IVP Q4H PRN PRN Reason: Nausea/Vomiting Pantoprazole Sodium (Protonix Ec Tab) 40 mg PO 0600,1600 [facility] Last Admin: 04/22/17 06:51 Dose: 40 mg Potassium Chloride (Potassium Chloride Oral Soln) 40 meq PO Q3H [facility] Stop: 04/22/17 12:46 Last Admin: 04/22/17 10:14 Dose: 40 meq - Labs Labs: 04/22/17 05:30 04/22/17 05:30 PT 11.9 SECONDS (9.4-12.5) 04/19/17 20:30 INR 1.04 (0.93-1.08) 04/19/17 20:30 APTT 27.0 Seconds (25.1-36.5) 04/19/17 20:30 Attending/Attestation - Attestation I have personally seen and examined this patient.: Yes I have fully participated in the care of the patient.: Yes I have reviewed all pertinent clinical information, including history, physical exam and plan: Yes Notes (Text): 04/22/17 11:21 41 year old male with past medical history of diabetes, hypertension, gastritis , and recently diagnosed osteomyelitis on iv antibiotics who presented with DKA which resolved with IVF and insulin drip. Anion gap was closed and drip was discontinued. He is started on levemir. Will continue to monitor fingersticks and adjust levemir accordingly. He also complained of hematemesis. Recent EGD from [facility] [place] showed erosive gastritis. Biopsies were taken and still pending. GI is following. Continue with protonix. Advance diet as tolerated. Continue to monitor cbc closely and transfuse as needed. He is currently on iv ceftiaxone for history of osteomyelitis. ID and podiatry are following. He initially had SHON which resolved. Will replete and repeat potassium. Harshad Johnston MD Hospitalist.
--- NOTE | 2017-04-22 12:31 | CP.PCM.PN ---
<Harsh Ortiz - Last Filed: 04/22/17 12:25> Subjective - Date & Time of Evaluation Date of Evaluation: 04/22/17 Time of Evaluation: 11:30 - Subjective Subjective: Podiatry Progress Note- Dr. Mendez 41M PMHx DM1, previous episodes of DKA, HTN, HLD, gastritis, hx OM, GI bleed, seen and evaluated at bedside for right foot ulceration. Patient is seen resting comfortably in bed, in NAD, and AAOx3. Patient reports that he is feeling better. He denies acute overnight events. Denies n/v/sob/cp/chils/f or d. Reports started on liquid diet and tolerating well. No other pedal complaints Objective - Vital Signs/Intake and Output Vital Signs (last 24 hours): Temp Pulse Resp BP Pulse Ox 98.5 F 75 18 117/76 98 04/22/17 08:50 04/22/17 08:50 04/22/17 08:50 04/22/17 08:50 04/22/17 08:50 Intake and Output: 04/22/17 04/22/17 06:59 18:59 Intake Total 120 Output Total 1100 Balance -1100 120 - Medications Medications: Current Medications Acetaminophen (Tylenol 325mg Tab) 650 mg PO Q6H PRN PRN Reason: Fever >100.4 F Last Admin: 04/21/17 17:50 Dose: 650 mg Ceftriaxone Sodium (Rocephin 2 Gm Ivpb) 2 gm in 100 mls @ 100 mls/hr IVPB DAILY [facility] PRN Reason: Protocol Last Admin: 04/22/17 09:53 Dose: 100 mls/hr Sodium Chloride (Sodium Chloride 0.9%) 1,000 mls @ 100 mls/hr IV .Q10H [facility] Last Admin: 04/21/17 23:03 Dose: 100 mls/hr Insulin Detemir (Levemir) 7 unit SC HS [facility] Insulin Human Lispro (Humalog Low) 0 units SC ACHS [facility] PRN Reason: Protocol Last Admin: 04/22/17 12:22 Dose: 2 units Mupirocin (Bactroban Ointment) 0 gm TOP BID [facility] Last Admin: 04/22/17 09:53 Dose: 1 applic Ondansetron HCl (Zofran Inj) 4 mg IVP Q4H PRN PRN Reason: Nausea/Vomiting Pantoprazole Sodium (Protonix Ec Tab) 40 mg PO 0600,1600 [facility] Last Admin: 04/22/17 06:51 Dose: 40 mg Potassium Chloride (Potassium Chloride Oral Soln) 40 meq PO Q3H [facility] Stop: 04/22/17 12:46 Last Admin: 04/22/17 10:14 Dose: 40 meq - Labs Labs: 04/22/17 05:30 04/22/17 05:30 PT 11.9 SECONDS (9.4-12.5) 04/19/17 20:30 INR 1.04 (0.93-1.08) 04/19/17 20:30 APTT 27.0 Seconds (25.1-36.5) 04/19/17 20:30 - Constitutional Appears: Well, Non-toxic, No Acute Distress - Extremities Exam Additional comments: RLE focused physical exam VASC: DP and PT pulses palpable 2/4 b/l. CFT <3 seconds to all digits x4. Temperature gradient cool to cool. Nonpitting edema noted to LE. NEURO: Gross sensation absent. DERM: Ulceration noted to lateral aspect of right foot measuring approximately 0.5 x 0.5 cm - ulcer is noted to have a granular base with hyperkeratotic rim; mild serosanguinous drainage noted; no purulence, no fluctuance, no undermining , no tunneling; mild periwound erythema noted. ORTHO: Previous 5th ray amputation. - Neurological Exam Neurological Exam: Alert, Awake, Oriented x3 - Psychiatric Exam Psychiatric exam: Normal Affect, Normal Mood Assessment and Plan - Assessment and Plan (Free Text) Assessment: 41M extensive PMHx with right lateral foot ulceration 2/2 diabetic neuropathy Plan: Patient seen and evaluated with attending Labs, chart, and labs reviwed- Afebrile, WBC 5.7, ESR 20 Ulceration cleansed with saline solution, bactroban applied and covered with optifoam WIll continue local wound care - bactroban and optifoam to right foot Right foot XR (04/20/17): s/p amputation 5th metatarsal and toes; chronic fractures of proximal 2nd and 3rd metatarsals consistent with Charcot; no bony destruction to suggest OM Right foot ulceration WCx obtained, pending Abx per ID - Continue IV Rocephin for now and will [place] [facility] [place] will continue to follow pateint while in house <RinkuKatty cochranhoward - Last Filed: 04/22/17 16:48> Objective - Vital Signs/Intake and Output Vital Signs (last 24 hours): Temp Pulse Resp BP Pulse Ox 98.5 F 85 18 117/76 98 04/22/17 08:50 04/22/17 10:00 04/22/17 08:50 04/22/17 08:50 04/22/17 08:50 Intake and Output: 04/22/17 04/22/17 06:59 18:59 Intake Total 960 Output Total 1100 1050 Balance -1100 -90 - Medications Medications: Current Medications Acetaminophen (Tylenol 325mg Tab) 650 mg PO Q6H PRN PRN Reason: Fever >100.4 F Last Admin: 04/21/17 17:50 Dose: 650 mg Ceftriaxone Sodium (Rocephin 2 Gm Ivpb) 2 gm in 100 mls @ 100 mls/hr IVPB DAILY [facility] PRN Reason: Protocol Last Admin: 04/22/17 09:53 Dose: 100 mls/hr Sodium Chloride (Sodium Chloride 0.9%) 1,000 mls @ 100 mls/hr IV .Q10H [facility] Last Admin: 04/21/17 23:03 Dose: 100 mls/hr Insulin Detemir (Levemir) 7 unit SC HS [facility] Insulin Human Lispro (Humalog Low) 0 units SC ACHS [facility] PRN Reason: Protocol Last Admin: 04/22/17 12:22 Dose: 2 units Mupirocin (Bactroban Ointment) 0 gm TOP BID [facility] Last Admin: 04/22/17 09:53 Dose: 1 applic Ondansetron HCl (Zofran Inj) 4 mg IVP Q4H PRN PRN Reason: Nausea/Vomiting Pantoprazole Sodium (Protonix Ec Tab) 40 mg PO 0600,1600 [facility] Last Admin: 04/22/17 06:51 Dose: 40 mg - Labs Labs: 04/22/17 12:40 04/22/17 05:30 PT 11.9 SECONDS (9.4-12.5) 04/19/17 20:30 INR 1.04 (0.93-1.08) 04/19/17 20:30 APTT 27.0 Seconds (25.1-36.5) 04/19/17 20:30 Attending/Attestation - Attestation I have personally seen and examined this patient.: Yes I have fully participated in the care of the patient.: Yes I have reviewed all pertinent clinical information, including history, physical exam and plan: Yes
[2017-04-22 12:57] LABS: HEMOGLOBIN 7.6 g/dL (14.0-18.0)
--- NOTE | 2017-04-22 19:21 | CP.PCM.PN ---
<Machelle Bhatti - Last Filed: 04/22/17 19:21> Subjective - Date & Time of Evaluation Date of Evaluation: 04/22/17 Time of Evaluation: 11:00 - Subjective Subjective: Seen and examined late this morning, patient denies nausea, vomiting, or abdominal pain tolerating clear liquid. Still awaiting Endo reports [facility]. No acute overnight events reported. Objective - Vital Signs/Intake and Output Vital Signs (last 24 hours): Temp Pulse Resp BP Pulse Ox 98.5 F 83 20 111/63 98 04/22/17 16:00 04/22/17 16:00 04/22/17 16:00 04/22/17 16:00 04/22/17 16:00 Intake and Output: 04/22/17 04/23/17 18:59 06:59 Intake Total 960 Output Total 1050 Balance -90 - Medications Medications: Current Medications Acetaminophen (Tylenol 325mg Tab) 650 mg PO Q6H PRN PRN Reason: Fever >100.4 F Last Admin: 04/21/17 17:50 Dose: 650 mg Ceftriaxone Sodium (Rocephin 2 Gm Ivpb) 2 gm in 100 mls @ 100 mls/hr IVPB DAILY [facility] PRN Reason: Protocol Last Admin: 04/22/17 09:53 Dose: 100 mls/hr Sodium Chloride (Sodium Chloride 0.9%) 1,000 mls @ 100 mls/hr IV .Q10H [facility] Last Admin: 04/21/17 23:03 Dose: 100 mls/hr Insulin Detemir (Levemir) 7 unit SC HS [facility] Insulin Human Lispro (Humalog Low) 0 units SC ACHS [facility] PRN Reason: Protocol Last Admin: 04/22/17 17:10 Dose: 5 units Mupirocin (Bactroban Ointment) 0 gm TOP BID [facility] Last Admin: 04/22/17 17:11 Dose: 1 applic Ondansetron HCl (Zofran Inj) 4 mg IVP Q4H PRN PRN Reason: Nausea/Vomiting Pantoprazole Sodium (Protonix Ec Tab) 40 mg PO 0600,1600 [facility] Last Admin: 04/22/17 17:11 Dose: 40 mg Sucralfate (Carafate Oral Susp) 1 gm PO 0600,1600 [facility] - Labs Labs: 04/22/17 12:40 04/22/17 05:30 PT 11.9 SECONDS (9.4-12.5) 04/19/17 20:30 INR 1.04 (0.93-1.08) 04/19/17 20:30 APTT 27.0 Seconds (25.1-36.5) 04/19/17 20:30 - Constitutional Appears: No Acute Distress - Head Exam Head Exam: NORMOCEPHALIC - Eye Exam Eye Exam: Normal appearance. absent: Scleral icterus - ENT Exam ENT Exam: Mucous Membranes Moist - Neck Exam Neck Exam: Normal Inspection - Respiratory Exam Respiratory Exam: NORMAL BREATHING PATTERN - Cardiovascular Exam Cardiovascular Exam: +S1, +S2 - GI/Abdominal Exam GI & Abdominal Exam: Soft, Normal Bowel Sounds. absent: Guarding, Tenderness, Rebound - Extremities Exam Extremities Exam: absent: Calf Tenderness, Pedal Edema - Neurological Exam Neurological Exam: Alert, Awake, Oriented x3 - Skin Skin Exam: Dry, Pallor, Warm Assessment and Plan - Assessment and Plan (Free Text) Assessment: Assessment: Assessment: Status post DKA Normocytic anemia, status post 2 units of blood transfusion History of GI bleed, suspected GI mass, patient had endoscopy at [facility] [place], awaiting reports History of gastritis Osteomyelitis of foot Diabetes mellitus Hypertension Plan: Monitor H&H and for overt GI bleed, transfuse as necessary Spoke to nursing staff to follow-up records Continue PPI on Carafate DVT prophylaxis On clear liquid diet On IV antibiotics Seen and discussed with Dr. Macias. <Susu Macias V - Last Filed: 04/22/17 22:33> Objective - Vital Signs/Intake and Output Vital Signs (last 24 hours): Temp Pulse Resp BP Pulse Ox 98.5 F 83 20 111/63 98 04/22/17 16:00 04/22/17 16:00 04/22/17 16:00 04/22/17 16:00 04/22/17 16:00 Intake and Output: 04/22/17 04/23/17 18:59 06:59 Intake Total 960 Output Total 1050 Balance -90 - Medications Medications: Current Medications Acetaminophen (Tylenol 325mg Tab) 650 mg PO Q6H PRN PRN Reason: Fever >100.4 F Last Admin: 04/21/17 17:50 Dose: 650 mg Ceftriaxone Sodium (Rocephin 2 Gm Ivpb) 2 gm in 100 mls @ 100 mls/hr IVPB DAILY [facility] PRN Reason: Protocol Last Admin: 04/22/17 09:53 Dose: 100 mls/hr Sodium Chloride (Sodium Chloride 0.9%) 1,000 mls @ 100 mls/hr IV .Q10H [facility] Last Admin: 04/22/17 20:00 Dose: 100 mls/hr Insulin Detemir (Levemir) 7 unit SC HS [facility] Insulin Human Lispro (Humalog Low) 0 units SC ACHS [facility] PRN Reason: Protocol Last Admin: 04/22/17 17:10 Dose: 5 units Mupirocin (Bactroban Ointment) 0 gm TOP BID [facility] Last Admin: 04/22/17 17:11 Dose: 1 applic Ondansetron HCl (Zofran Inj) 4 mg IVP Q4H PRN PRN Reason: Nausea/Vomiting Pantoprazole Sodium (Protonix Ec Tab) 40 mg PO 0600,1600 [facility] Last Admin: 04/22/17 17:11 Dose: 40 mg Sucralfate (Carafate Oral Susp) 1 gm PO 0600,1600 [facility] - Labs Labs: 04/22/17 12:40 04/22/17 05:30 PT 11.9 SECONDS (9.4-12.5) 04/19/17 20:30 INR 1.04 (0.93-1.08) 04/19/17 20:30 APTT 27.0 Seconds (25.1-36.5) 04/19/17 20:30 Attending/Attestation - Attestation I have personally seen and examined this patient.: Yes I have fully participated in the care of the patient.: Yes I have reviewed all pertinent clinical information, including history, physical exam and plan: Yes Notes (Text): This is an addendum to GI progress report dictated by Machelle Bhatti APN.The patient was seen and examined earlier. Medical records, lab studies, imagings were reviewed. Last 24 hours events reviewed. Agreed with the above treatment plan as outlined in Machelle Bhatti APN's notes the with the addition of the following 04/22/17 22:33
[2017-04-22] MEDS: Sodium Chloride 0.9% 1,000 ML IV SCH (20:00)
[2017-04-22] MEDS: Insulin Detemir 100 units/ml Vial (Levemir) SC SCH (22:41)
[2017-04-23] MEDS: Pantoprazole 40 mg EC Tab PO SCH ×2 (05:34→17:48)
[2017-04-23] MEDS: Sucralfate 1 gm/10 ml Oral Susp UD PO SCH ×2 (05:34→17:48)
[2017-04-23] MEDS: Sodium Chloride 0.9% 1,000 ML IV SCH ×3 (05:35→23:46)
--- NOTE | 2017-04-23 07:31 | CP.PCM.PN ---
<Iliana Shah - Last Filed: 04/23/17 10:31> Subjective - Date & Time of Evaluation Date of Evaluation: 04/23/17 Time of Evaluation: 07:33 - Subjective Subjective: Progress note for Dr. Johnston Patient seen and examined at bedside. no acute events overnight. Patient denies hematemesis. Patient denies dizziness, weakness, bloody bowel movements, nausea , vomiting, diarrhea, fever, chills. Patient tolerating heart healthy diet. Objective - Vital Signs/Intake and Output Vital Signs (last 24 hours): Temp Pulse Resp BP Pulse Ox 98.5 F 83 20 111/63 98 04/22/17 16:00 04/23/17 00:00 04/22/17 16:00 04/22/17 16:00 04/22/17 16:00 Intake and Output: 04/23/17 04/23/17 06:59 18:59 Intake Total 0 Output Total 2570 1300 Balance -2570 -1300 - Medications Medications: Current Medications Acetaminophen (Tylenol 325mg Tab) 650 mg PO Q6H PRN PRN Reason: Fever >100.4 F Last Admin: 04/21/17 17:50 Dose: 650 mg Ceftriaxone Sodium (Rocephin 2 Gm Ivpb) 2 gm in 100 mls @ 100 mls/hr IVPB DAILY [facility] PRN Reason: Protocol Last Admin: 04/22/17 09:53 Dose: 100 mls/hr Sodium Chloride (Sodium Chloride 0.9%) 1,000 mls @ 100 mls/hr IV .Q10H [facility] Last Admin: 04/23/17 05:35 Dose: 100 mls/hr Insulin Detemir (Levemir) 7 unit SC HS [facility] Last Admin: 04/22/17 22:41 Dose: 7 unit Insulin Human Lispro (Humalog Low) 0 units SC ACHS [facility] PRN Reason: Protocol Last Admin: 04/22/17 22:39 Dose: 3 units Mupirocin (Bactroban Ointment) 0 gm TOP BID [facility] Last Admin: 04/22/17 17:11 Dose: 1 applic Ondansetron HCl (Zofran Inj) 4 mg IVP Q4H PRN PRN Reason: Nausea/Vomiting Pantoprazole Sodium (Protonix Ec Tab) 40 mg PO 0600,1600 [facility] Last Admin: 04/23/17 05:34 Dose: 40 mg Sucralfate (Carafate Oral Susp) 1 gm PO 0600,1600 [facility] Last Admin: 04/23/17 05:34 Dose: 1 gm - Labs Labs: 04/22/17 12:40 04/22/17 05:30 PT 11.9 SECONDS (9.4-12.5) 04/19/17 20:30 INR 1.04 (0.93-1.08) 04/19/17 20:30 APTT 27.0 Seconds (25.1-36.5) 04/19/17 20:30 - Constitutional Appears: Non-toxic, No Acute Distress - Head Exam Head Exam: ATRAUMATIC, NORMAL INSPECTION, NORMOCEPHALIC - Eye Exam Eye Exam: EOMI, Normal appearance, PERRL - ENT Exam ENT Exam: Mucous Membranes Moist - Neck Exam Neck Exam: Full ROM, Normal Inspection. absent: Tenderness, Thyromegaly - Respiratory Exam Respiratory Exam: Clear to Ausculation Bilateral, NORMAL BREATHING PATTERN. absent: Accessory Muscle Use, Respiratory Distress - Cardiovascular Exam Cardiovascular Exam: REGULAR RHYTHM, +S1, +S2 - GI/Abdominal Exam GI & Abdominal Exam: Soft, Normal Bowel Sounds. absent: Tenderness - Extremities Exam Extremities Exam: Full ROM, Normal Capillary Refill, Normal Inspection. absent : Calf Tenderness Additional comments: Right LE wound dressing clean, dry and intact, no bleeding or oozing through bandaging - Back Exam Back Exam: Full ROM - Neurological Exam Neurological Exam: Alert, Awake, Oriented x3 - Psychiatric Exam Psychiatric exam: Normal Affect, Normal Mood - Skin Skin Exam: Dry, Intact, Normal Color, Warm Assessment and Plan - Assessment and Plan (Free Text) Assessment: 41 year old male with a past medical history significant for DMT1 with multiple prior episodes of DKA, HTN, HLD, gastritis, recent dx of osteomyelitis (s/p R 5th metatarsal amputation), and GI bleed who presented to [facility] [place] for fatigue, weakness, nausea, and reported episode of coffee-ground emesis. He was found to be in DKA with an elevated anion gap of 32 and severe anemia likely secondary to upper GI bleed suspected to be secondary to GI mass. Gap is now closed, patient has been switched from insulin drip to long-acting and sliding scale coverage, and is on PO Protonix as his hemoglobin has been stable for 24 hours. No acute intervention is planned from GI, advancing diet as tolerated and instructed patient to follow up with GI as outpatient. Plan: 1. Hematemesis monitor H/H, hemoglobin 7.4 today 04/23/17 -Protonix 40mg PO BID -Continue Zofran PRN for N/V -Tolerating clear liquid diet, advanced to soft diet moderate consistent carb -GI with no plans for acute interventions at this time, advance diet as tolerated, continue PPI, carafate, avoid smoking, and follow up with GI in 2 months for repeat EGD -GI consult: CT abdomen with PO contrast 2. DKA - resolved -Gap closed, off insulin drip, now on long-acting + sliding scale insulin -Hypoglycemic to 51 this AM, responded to PO orange juice x3, improved to 91. -Decreased Long-acting insulin to 7 units HS, decreased sliding scale to Low -Moderate carbohydrate consistent soft diet 3. RLE Osteomyelitis -Right foot X-Ray showed chronic appearing fractures with fragmentation of the proximal second and third metatarsals consistent with Charcot foot -Continue IV Rocephin -Continue Tylenol PRN for fever -Continue wound care -ID and Podiatry consulted, all recommendations appreciated 4. Hypokalemia -K 3.0 today, was 3.6 -avoid KCl pills due to risk of gastritis, concern for GI bleed -KCl solution 40mEq ordered q3H for 2 doses, follow up on AM labs and replete additionally as needed Dispo: Remote telemetry, pending repeat H&H and diet advancement as tolerated Diet: HEart healthy carb consistent diet. IVF: NS 100cc/hr Access: Peripheral IVs, PICC line Consults: GI, Podiatry, ID Ppx: Protonix BID covers GI, SCDs for DVT, avoid AC in setting of likely GI bleed Patient seen and case discussed with Dr. Johnston. Iliana Shah DO PGY1 <Harshad Johnston - Last Filed: 04/23/17 11:12> Objective - Vital Signs/Intake and Output Vital Signs (last 24 hours): Temp Pulse Resp BP Pulse Ox 98.2 F 83 20 119/76 98 04/23/17 06:00 04/23/17 06:00 04/23/17 06:00 04/23/17 06:00 04/23/17 06:00 Intake and Output: 04/23/17 04/23/17 06:59 18:59 Intake Total 0 Output Total 5667 9961 Balance -2570 -1300 - Medications Medications: Current Medications Acetaminophen (Tylenol 325mg Tab) 650 mg PO Q6H PRN PRN Reason: Fever >100.4 F Last Admin: 04/21/17 17:50 Dose: 650 mg Ceftriaxone Sodium (Rocephin 2 Gm Ivpb) 2 gm in 100 mls @ 100 mls/hr IVPB DAILY [facility] PRN Reason: Protocol Last Admin: 04/23/17 09:53 Dose: 100 mls/hr Sodium Chloride (Sodium Chloride 0.9%) 1,000 mls @ 100 mls/hr IV .Q10H [facility] Last Admin: 04/23/17 05:35 Dose: 100 mls/hr Potassium Chloride (Potassium Chloride 20 Meq/100 Ml) 20 meq in 100 mls @ 50 mls/hr IVPB Q2H [facility] Stop: 04/23/17 14:44 Insulin Detemir (Levemir) 7 unit SC HS [facility] Last Admin: 04/22/17 22:41 Dose: 7 unit Insulin Human Lispro (Humalog Low) 0 units SC ACHS [facility] PRN Reason: Protocol Last Admin: 04/23/17 08:09 Dose: Not Given Mupirocin (Bactroban Ointment) 0 gm TOP BID [facility] Last Admin: 04/23/17 09:54 Dose: 1 applic Ondansetron HCl (Zofran Inj) 4 mg IVP Q4H PRN PRN Reason: Nausea/Vomiting Pantoprazole Sodium (Protonix Ec Tab) 40 mg PO 0600,1600 [facility] Last Admin: 04/23/17 05:34 Dose: 40 mg Sucralfate (Carafate Oral Susp) 1 gm PO 0600,1600 [facility] Last Admin: 04/23/17 05:34 Dose: 1 gm - Labs Labs: 04/23/17 06:30 04/23/17 06:30 PT 11.9 SECONDS (9.4-12.5) 04/19/17 20:30 INR 1.04 (0.93-1.08) 04/19/17 20:30 APTT 27.0 Seconds (25.1-36.5) 04/19/17 20:30 Attending/Attestation - Attestation I have personally seen and examined this patient.: Yes I have fully participated in the care of the patient.: Yes I have reviewed all pertinent clinical information, including history, physical exam and plan: Yes Notes (Text): 04/23/17 11:10 41 year old male with past medical history of diabetes, hypertension, gastritis , and recently diagnosed osteomyelitis on iv antibiotics who presented with DKA which resolved with IVF and insulin drip. Anion gap was closed and drip was discontinued. He was started on levemir. He also complained of hematemesis. Recent EGD from [facility] [place] showed erosive gastritis. He is on protonix and carafate. GI is following. Case was discussed with Dr. Macias who recommended CT abd/pelvis. Will need close outpatient GI follow up for repeat EGD +/- colonoscopy. Will transfuse 1 unit prbc for anemia. He is currently on iv ceftiaxone for history of osteomyelitis. ID and podiatry are following. He initially had SHON which resolved. Will replete and repeat potassium. Harshad Johnston MD Hospitalist.
[2017-04-23 07:56] LABS: BASO # 0.01 K/mm3 (0.0-2.0); BASO % 0.2 % (0.0-3.0); EOS # 0.1 (0.0-0.7); EOS % 1.3 % (1.5-5.0); GRAN # 2.57 (1.4-6.5); GRAN % 53.8 % (50.0-68.0); HEMOGLOBIN 7.4 g/dL (14.0-18.0); LYMPH # 1.7 (1.2-3.4); LYMPH % 35.1 % (22.0-35.0); MEAN CELL VOLUME 87.8 fl (80.0-105.0); MEAN CORPUSCULAR HEMOGLOBIN 30.2 pg (25.0-35.0); MEAN CORPUSCULAR HGB CONC 34.4 g/dl (31.0-37.0); MEAN PLATELET VOLUME 8.8 fl (7.0-11.0); MONO # 0.5 (0.1-0.6); MONO % 9.6 % (1.0-6.0); RBC 2.45 10^6/uL (3.5-6.1); RED CELL DISTRIBUTION WIDTH 13.6 % (11.5-14.5); WHITE BLOOD COUNT 4.8 10^3/ul (4.5-11.0)
[2017-04-23 08:01] LABS: ALB/GLOB RATIO 0.9 (1.1-1.8); ALT/SGPT 26 U/L (7-56); AST/SGOT 18 U/L (17-59); BLOOD UREA NITROGEN 8 mg/dL (7-21); CALCIUM 8.3 mg/dL (8.4-10.5); GFR AFRICAN-AMERICAN > 60; GFR NON-AFRICAN AMERICAN > 60; MAGNESIUM 1.9 mg/dL (1.7-2.2)
[2017-04-23] MEDS: Insulin Lispro (humaLOG) LOW Coverage SC SCH ×4 (08:09→21:56)
[2017-04-23] MEDS: cefTRIAXone 2 GM IN NS 2 GM/100 ML BAG IVPB SCH (09:53)
--- NOTE | 2017-04-23 11:21 | CP.PCM.PN ---
<Marija Triana - Last Filed: 04/23/17 11:22> Subjective - Date & Time of Evaluation Date of Evaluation: 04/23/17 Time of Evaluation: 09:10 - Subjective Subjective: Podiatry Progress Note- Dr. Mendez 41 y/o male seen for right foot ulceration. Patient is seen resting comfortably in bed, in NAD, and AAOx3. Patient reports that he is feeling better. He denies acute overnight events. Denies n/v/sob/cp/chils/f or d. Reports tolerating normal diet well well. No other pedal complaints Objective - Vital Signs/Intake and Output Vital Signs (last 24 hours): Temp Pulse Resp BP Pulse Ox 98.2 F 83 20 119/76 98 04/23/17 06:00 04/23/17 06:00 04/23/17 06:00 04/23/17 06:00 04/23/17 06:00 Intake and Output: 04/23/17 04/23/17 06:59 18:59 Intake Total 0 Output Total 2570 1300 Balance -2570 -1300 - Medications Medications: Current Medications Acetaminophen (Tylenol 325mg Tab) 650 mg PO Q6H PRN PRN Reason: Fever >100.4 F Last Admin: 04/21/17 17:50 Dose: 650 mg Ceftriaxone Sodium (Rocephin 2 Gm Ivpb) 2 gm in 100 mls @ 100 mls/hr IVPB DAILY [facility] PRN Reason: Protocol Last Admin: 04/23/17 09:53 Dose: 100 mls/hr Sodium Chloride (Sodium Chloride 0.9%) 1,000 mls @ 100 mls/hr IV .Q10H [facility] Last Admin: 04/23/17 05:35 Dose: 100 mls/hr Potassium Chloride (Potassium Chloride 20 Meq/100 Ml) 20 meq in 100 mls @ 50 mls/hr IVPB Q2H [facility] Stop: 04/23/17 14:44 Insulin Detemir (Levemir) 7 unit SC HS [facility] Last Admin: 04/22/17 22:41 Dose: 7 unit Insulin Human Lispro (Humalog Low) 0 units SC ACHS [facility] PRN Reason: Protocol Last Admin: 04/23/17 08:09 Dose: Not Given Mupirocin (Bactroban Ointment) 0 gm TOP BID [facility] Last Admin: 04/23/17 09:54 Dose: 1 applic Ondansetron HCl (Zofran Inj) 4 mg IVP Q4H PRN PRN Reason: Nausea/Vomiting Pantoprazole Sodium (Protonix Ec Tab) 40 mg PO 0600,1600 [facility] Last Admin: 04/23/17 05:34 Dose: 40 mg Sucralfate (Carafate Oral Susp) 1 gm PO 0600,1600 [facility] Last Admin: 04/23/17 05:34 Dose: 1 gm - Labs Labs: 04/23/17 06:30 04/23/17 06:30 PT 11.9 SECONDS (9.4-12.5) 04/19/17 20:30 INR 1.04 (0.93-1.08) 04/19/17 20:30 APTT 27.0 Seconds (25.1-36.5) 04/19/17 20:30 - Constitutional Appears: Well, Non-toxic, No Acute Distress - Back Exam Additional comments: RLE focused physical exam VASC: DP and PT pulses palpable 2/4 b/l. CFT <3 seconds to all digits x4. Temperature gradient cool to cool. Nonpitting edema noted to LE. NEURO: Gross sensation absent. DERM: Ulceration noted to lateral aspect of right foot measuring approximately 0.5 x 0.5 cm - ulcer is noted to have a granular base with hyperkeratotic rim; mild serosanguinous drainage noted; no purulence, no fluctuance, no undermining , no tunneling; mild periwound erythema noted. ORTHO: Previous 5th ray amputation. - Neurological Exam Neurological Exam: Alert, Awake, Oriented x3 - Psychiatric Exam Psychiatric exam: Normal Affect, Normal Mood Assessment and Plan - Assessment and Plan (Free Text) Assessment: 41 y/o male with right lateral foot ulceration 2/2 diabetic neuropathy Plan: Patient seen and evaluated with attending, Dr. Mendez. Labs, chart, and labs reveiwed- Afebrile, absent leukocytosis Ulceration cleansed with saline solution, bactroban applied and covered with optifoam WIll continue local wound care Right foot WCx - pending Abx per ID - Continue IV Rocephin for now and will follow up the records from [facility] Podiatry will continue to follow patient while in house <Davie Mendez - Last Filed: 04/23/17 17:47> Objective - Vital Signs/Intake and Output Vital Signs (last 24 hours): Temp Pulse Resp BP Pulse Ox 98.6 F 84 20 138/91 H 97 04/23/17 17:42 04/23/17 17:42 04/23/17 17:42 04/23/17 17:42 04/23/17 17:42 Intake and Output: 04/23/17 04/23/17 06:59 18:59 Intake Total 0 Output Total 2570 1300 Balance -2570 -1300 - Medications Medications: Current Medications Acetaminophen (Tylenol 325mg Tab) 650 mg PO Q6H PRN PRN Reason: Fever >100.4 F Last Admin: 04/21/17 17:50 Dose: 650 mg Ceftriaxone Sodium (Rocephin 2 Gm Ivpb) 2 gm in 100 mls @ 100 mls/hr IVPB DAILY [facility] PRN Reason: Protocol Last Admin: 04/23/17 09:53 Dose: 100 mls/hr Sodium Chloride (Sodium Chloride 0.9%) 1,000 mls @ 100 mls/hr IV .Q10H [facility] Last Admin: 04/23/17 05:35 Dose: 100 mls/hr Insulin Detemir (Levemir) 7 unit SC HS [facility] Last Admin: 04/22/17 22:41 Dose: 7 unit Insulin Human Lispro (Humalog Low) 0 units SC ACHS [facility] PRN Reason: Protocol Last Admin: 04/23/17 13:02 Dose: 2 units Mupirocin (Bactroban Ointment) 0 gm TOP BID [facility] Last Admin: 04/23/17 09:54 Dose: 1 applic Ondansetron HCl (Zofran Inj) 4 mg IVP Q4H PRN PRN Reason: Nausea/Vomiting Pantoprazole Sodium (Protonix Ec Tab) 40 mg PO 0600,1600 [facility] Last Admin: 04/23/17 05:34 Dose: 40 mg Sucralfate (Carafate Oral Susp) 1 gm PO 0600,1600 [facility] Last Admin: 04/23/17 05:34 Dose: 1 gm - Labs Labs: 04/23/17 06:30 04/23/17 06:30 PT 11.9 SECONDS (9.4-12.5) 04/19/17 20:30 INR 1.04 (0.93-1.08) 04/19/17 20:30 APTT 27.0 Seconds (25.1-36.5) 04/19/17 20:30 Attending/Attestation - Attestation I have personally seen and examined this patient.: Yes I have fully participated in the care of the patient.: Yes I have reviewed all pertinent clinical information, including history, physical exam and plan: Yes
[2017-04-23] MEDS ORDERED: Barium Sulfate Susp 2.1% w/v, 2.0% w/w 450 mL Bottle PO ONE (20:03)
[2017-04-23 21:03] LABS: BASO # 0.02 K/mm3 (0.0-2.0); BASO % 0.4 % (0.0-3.0); EOS # 0.1 (0.0-0.7); EOS % 1.3 % (1.5-5.0); GRAN # 2.71 (1.4-6.5); GRAN % 57.4 % (50.0-68.0); LYMPH # 1.5 (1.2-3.4); LYMPH % 31.6 % (22.0-35.0); MEAN CELL VOLUME 86.5 fl (80.0-105.0); MEAN CORPUSCULAR HEMOGLOBIN 29.6 pg (25.0-35.0); MEAN CORPUSCULAR HGB CONC 34.2 g/dl (31.0-37.0); MEAN PLATELET VOLUME 8.9 fl (7.0-11.0); MONO # 0.4 (0.1-0.6); MONO % 9.3 % (1.0-6.0); RBC 3.04 10^6/uL (3.5-6.1); RED CELL DISTRIBUTION WIDTH 13.8 % (11.5-14.5); WHITE BLOOD COUNT 4.7 10^3/ul (4.5-11.0)
[2017-04-23] MEDS: Insulin Detemir 100 units/ml Vial (Levemir) SC SCH (22:00)
--- NOTE | 2017-04-24 01:14 | PN ---
DATE: 04/23/2017 SUBJECTIVE: This patient was seen and evaluated earlier today, tolerating the diet. No complaints of any abdominal pain. No vomiting blood. No melena. PHYSICAL EXAMINATION: VITAL SIGNS: Temperature 99.6, pulse 76, blood pressure 140/88, respirations 18. HEENT: Atraumatic, anicteric. NECK: Supple. HEART: S1 and S2 heard. LUNGS: Bilateral air entry present. ABDOMEN: Soft. There is no tenderness. EXTREMITIES: Right lower extremity wound dressing present. LABORATORY DATA: Hemoglobin 9, hematocrit 26.3, WBC 4.7, platelets 324. Chemistry: Potassium 3.1, BUN 8, creatinine 0.7. IMPRESSION AND PLAN: This is a 41-year-old patient with diabetes mellitus, status post diabetic ketoacidosis, admitted with severe anemia with a hemoglobin of 6.7, received 2 units of packed red blood cells. Hemoglobin was 7.4. Patient at the time of examination today is due to have another 2 units of packed red blood cells. Patient did have an upper gastrointestinal endoscopy done in [facility] prior to this admission in [place]. The endoscopy was done by Dr. Sanchez, and he was found to have an esophageal ulceration extending up 10 to 12 cm. The extensive esophageal ulceration most likely is a contributory factor for this severe anemia. One of the factors also predisposed to this ulceration is gastroparesis in view of his diabetes mellitus. Presently, patient is on twice a day proton pump inhibitor, Protonix. Other comorbidities include osteomyelitis of right foot, on intravenous antibiotics, history of hypokalemia, being replaced. Would recommend, 1. Continue the Protonix twice daily. 2. Add Carafate twice a day in addition to that. 3. Recommend a CT of the abdomen and pelvis with p.o. contrast to rule out any mass lesions in the abdomen. 4. Recommend upper gastrointestinal endoscopy in about 6 to 8 weeks' time to evaluate the healing of the ulcer. 5. Diet has been changed to pureed diet. I had a detailed discussion with the patient who fully understood the importance of taking the pureed diet. Thank you very much for allowing us to participate in the care of the patient. Susu Macias MD [facility]
[2017-04-24] MEDS: Pantoprazole 40 mg EC Tab PO SCH (05:13)
[2017-04-24] MEDS: Sucralfate 1 gm/10 ml Oral Susp UD PO SCH (05:13)
--- NOTE | 2017-04-24 07:33 | CP.PCM.PN ---
Subjective - Date & Time of Evaluation Date of Evaluation: 04/24/17 Time of Evaluation: 07:30 - Subjective Subjective: Progress note Patient seen and examined at bedside. Patient tolerated 1uPRBC blood transfusion. Overnight, patient had high glucose reading in 400s. Patient was given insulin and glucose was rechecked to be 200s. Patient denies fever, chills , nausea, vomiting, diarrhea, constipation, dizziness, abdominal pain. Objective - Vital Signs/Intake and Output Vital Signs (last 24 hours): Temp Pulse Resp BP Pulse Ox 98.6 F 78 20 126/86 97 04/24/17 00:00 04/24/17 06:00 04/24/17 00:00 04/24/17 00:00 04/24/17 00:00 Intake and Output: 04/24/17 04/24/17 06:59 18:59 Intake Total 1860 Output Total 3100 Balance -1240 - Medications Medications: Current Medications Acetaminophen (Tylenol 325mg Tab) 650 mg PO Q6H PRN PRN Reason: Fever >100.4 F Last Admin: 04/21/17 17:50 Dose: 650 mg Ceftriaxone Sodium (Rocephin 2 Gm Ivpb) 2 gm in 100 mls @ 100 mls/hr IVPB DAILY [facility] PRN Reason: Protocol Last Admin: 04/23/17 09:53 Dose: 100 mls/hr Sodium Chloride (Sodium Chloride 0.9%) 1,000 mls @ 100 mls/hr IV .Q10H [facility] Last Admin: 04/23/17 23:46 Dose: 100 mls/hr Insulin Detemir (Levemir) 7 unit SC HS [facility] Last Admin: 04/23/17 22:00 Dose: 7 unit Insulin Human Lispro (Humalog Low) 0 units SC ACHS [facility] PRN Reason: Protocol Last Admin: 04/23/17 21:56 Dose: 4 units Mupirocin (Bactroban Ointment) 0 gm TOP BID [facility] Last Admin: 04/23/17 17:48 Dose: 1 applic Ondansetron HCl (Zofran Inj) 4 mg IVP Q4H PRN PRN Reason: Nausea/Vomiting Pantoprazole Sodium (Protonix Ec Tab) 40 mg PO 0600,1600 [facility] Last Admin: 04/24/17 05:13 Dose: 40 mg Sucralfate (Carafate Oral Susp) 1 gm PO 0600,1600 [facility] Last Admin: 04/24/17 05:13 Dose: 1 gm - Labs Labs: 04/23/17 20:30 04/23/17 06:30 PT 11.9 SECONDS (9.4-12.5) 04/19/17 20:30 INR 1.04 (0.93-1.08) 04/19/17 20:30 APTT 27.0 Seconds (25.1-36.5) 04/19/17 20:30 - Constitutional Appears: Non-toxic, No Acute Distress - Head Exam Head Exam: ATRAUMATIC, NORMAL INSPECTION, NORMOCEPHALIC - Eye Exam Eye Exam: EOMI, Normal appearance Pupil Exam: NORMAL ACCOMODATION - ENT Exam ENT Exam: Mucous Membranes Moist, Normal Exam - Neck Exam Neck Exam: Normal Inspection - Respiratory Exam Respiratory Exam: Clear to Ausculation Bilateral, NORMAL BREATHING PATTERN - Cardiovascular Exam Cardiovascular Exam: REGULAR RHYTHM, +S1, +S2. absent: Bradycardia, Tachycardia - GI/Abdominal Exam GI & Abdominal Exam: Soft, Normal Bowel Sounds. absent: Tenderness - Extremities Exam Extremities Exam: Full ROM, Normal Capillary Refill - Back Exam Back Exam: Full ROM, NORMAL INSPECTION. absent: CVA tenderness (L), CVA tenderness (R) - Neurological Exam Neurological Exam: Alert, Awake, CN II-XII Intact, Oriented x3 - Psychiatric Exam Psychiatric exam: Normal Affect, Normal Mood - Skin Skin Exam: Dry, Pallor, Warm Assessment and Plan - Assessment and Plan (Free Text) Assessment: 41 year old male with a past medical history significant for DMT1 with multiple prior episodes of DKA, HTN, HLD, gastritis, recent dx of osteomyelitis (s/p R 5th metatarsal amputation), and GI bleed who presented to [facility] for fatigue, weakness, nausea, and reported episode of coffee-ground emesis. He was found to be in DKA with an elevated anion gap of 32 and severe anemia likely secondary to upper GI bleed suspected to be secondary to GI mass. Gap is now closed, patient has been switched from insulin drip to long-acting and sliding scale coverage, and is on PO Protonix as his hemoglobin has been stable for 24 hours. No acute intervention is planned from GI, advancing diet as tolerated and instructed patient to follow up with GI as outpatient. Plan: 1. Hematemesis monitor H/H, hemoglobin 7.4 3/3, 1 u PRBC administered, tolerated well -Protonix 40mg PO BID -Continue Zofran PRN for N/V -Tolerating clear liquid diet, advanced to soft diet moderate consistent carb -GI with no plans for acute interventions at this time, advance diet as tolerated, continue PPI, carafate, avoid smoking, and follow up with GI in 2 months for repeat EGD -GI consult: CT abdomen with PO contrast 2. DKA - resolved, Uncontrolled T1DM -Gap closed, off insulin drip, now on long-acting + sliding scale insulin -Moderate carbohydrate consistent soft diet 3. RLE Osteomyelitis -Right foot X-Ray showed chronic appearing fractures with fragmentation of the proximal second and third metatarsals consistent with Charcot foot -Continue IV Rocephin -Continue Tylenol PRN for fever -Continue wound care -ID and Podiatry consulted, all recommendations appreciated 4. Hypokalemia, repleted f/u CMP Dispo: Remote telemetry, pending repeat H&H and diet advancement as tolerated Diet: HEart healthy carb consistent diet. IVF: NS 100cc/hr Access: Peripheral IVs, PICC line Consults: GI, Podiatry, ID Ppx: Protonix BID covers GI, SCDs for DVT, avoid AC in setting of likely GI bleed Patient seen and case discussed with Dr. Johnston. Iliana Shah DO PGY1
[2017-04-24 07:35] LABS: BASO # 0.01 K/mm3 (0.0-2.0); BASO % 0.2 % (0.0-3.0); EOS # 0.1 (0.0-0.7); EOS % 1.5 % (1.5-5.0); GRAN # 2.03 (1.4-6.5); GRAN % 49.2 % (50.0-68.0); HEMOGLOBIN 8.3 g/dL (14.0-18.0); LYMPH # 1.5 (1.2-3.4); LYMPH % 36.7 % (22.0-35.0); MEAN CELL VOLUME 87.5 fl (80.0-105.0); MEAN CORPUSCULAR HEMOGLOBIN 29.5 pg (25.0-35.0); MEAN CORPUSCULAR HGB CONC 33.7 g/dl (31.0-37.0); MEAN PLATELET VOLUME 8.9 fl (7.0-11.0); MONO # 0.5 (0.1-0.6); MONO % 12.4 % (1.0-6.0); RBC 2.81 10^6/uL (3.5-6.1); RED CELL DISTRIBUTION WIDTH 13.8 % (11.5-14.5); WHITE BLOOD COUNT 4.1 10^3/ul (4.5-11.0)
[2017-04-24 07:39] VITALS: BP 141/84; RESP 18; TEMP 97.8; O2SAT 95
[2017-04-24 07:49] LABS: ALBUMIN 2.2 g/dL (3.0-4.8); ALT/SGPT 29 U/L (7-56); AST/SGOT 21 U/L (17-59); BLOOD UREA NITROGEN 9 mg/dL (7-21); CALCIUM 8.5 mg/dL (8.4-10.5); GFR AFRICAN-AMERICAN > 60; GFR NON-AFRICAN AMERICAN > 60; MAGNESIUM 1.8 mg/dL (1.7-2.2)
[2017-04-24] MEDS: Insulin Lispro (humaLOG) LOW Coverage SC SCH (10:12)
[2017-04-24] MEDS: cefTRIAXone 2 GM IN NS 2 GM/100 ML BAG IVPB SCH (10:12)
--- NOTE | 2017-04-24 10:15 | CT ---
PROCEDURE: CT Abdomen and Pelvis without intravenous contrast HISTORY: r/o mass COMPARISON: None. TECHNIQUE: Without contrast. Contrast Dose: Radiation dose: Total exam DLP = 271 mGy-cm. This CT exam was performed using one or more of the following dose reduction techniques: Automated exposure control, adjustment of the mA and/or kV according to patient size, and/or use of iterative reconstruction technique. FINDINGS: LOWER THORAX: Small pleural effusions. Linear scarring or atelectasis at the left lung base LIVER: Unremarkable. No gross lesion or ductal dilatation. GALLBLADDER AND BILE DUCTS: The gallbladder is contracted and contains some dense sludge. PANCREAS: Unremarkable. No gross lesion or ductal dilatation. SPLEEN: Unremarkable. ADRENALS: Unremarkable. No mass. KIDNEYS AND URETERS: Unremarkable. No hydronephrosis. No solid mass. VASCULATURE: Unremarkable. No aortic aneurysm. BOWEL: Unremarkable. No obstruction. No gross mural thickening. There is moderate constipation APPENDIX: Unremarkable. Normal appendix. PERITONEUM: Unremarkable. No free fluid. No free air. LYMPH NODES: Unremarkable. No enlarged lymph nodes. BLADDER: Unremarkable. REPRODUCTIVE: Unremarkable. BONES: No acute fracture. OTHER FINDINGS: None. IMPRESSION: No acute intra-abdominal findings. No evidence of abdominal mass. Moderate constipation
[2017-04-24] MEDS ORDERED: Insulin Detemir 100 units/ml Vial (Levemir) SC SCH (10:25)
--- NOTE | 2017-04-24 10:34 | CP.PCM.DIS ---
Provider - Provider Date of Admission: 04/19/17 21:01 Attending physician: Harshad Johnston MD Primary care physician: Maisha Bonilla MD Consults: Dr. Sharad Macias Time Spent in preparation of Discharge (in minutes): 35 Hospital Course - Lab Results Lab Results: Micro Results 04/23/17 09:45 Urine,Clean Catch Urine Culture - Final No Growth (<1,000 CFU/ML) 04/20/17 06:10 Blood Blood Culture - Preliminary NO GROWTH AFTER 4 DAYS 04/20/17 23:15 Foot - Right Gram Stain - Preliminary 04/20/17 23:15 Foot - Right Wound Culture - Final Corynebacterium Species 04/20/17 00:00 Naris MRSA Culture (Admit) - Final MRSA NOT DETECTED Most Recent Lab Values WBC 4.1 10^3/ul (4.5-11.0) L 04/24/17 07:00 RBC 2.81 10^6/uL (3.5-6.1) L 04/24/17 07:00 Hgb 8.3 g/dL (14.0-18.0) L 04/24/17 07:00 Hct 24.6 % (42.0-52.0) L 04/24/17 07:00 MCV 87.5 fl (80.0-105.0) 04/24/17 07:00 MCH 29.5 pg (25.0-35.0) 04/24/17 07:00 MCHC 33.7 g/dl (31.0-37.0) 04/24/17 07:00 RDW 13.8 % (11.5-14.5) 04/24/17 07:00 Plt Count 328 10^3/uL (120.0-450.0) 04/24/17 07:00 MPV 8.9 fl (7.0-11.0) 04/24/17 07:00 Gran % 49.2 % (50.0-68.0) L 04/24/17 07:00 Lymph % (Auto) 36.7 % (22.0-35.0) H 04/24/17 07:00 [place] % (Auto) 12.4 % (1.0-6.0) H 04/24/17 07:00 Eos % (Auto) 1.5 % (1.5-5.0) 04/24/17 07:00 Baso % (Auto) 0.2 % (0.0-3.0) 04/24/17 07:00 Gran # 2.03 (1.4-6.5) 04/24/17 07:00 Lymph # (Auto) 1.5 (1.2-3.4) 04/24/17 07:00 [place] # (Auto) 0.5 (0.1-0.6) 04/24/17 07:00 Eos # (Auto) 0.1 (0.0-0.7) 04/24/17 07:00 Baso # (Auto) 0.01 K/mm3 (0.0-2.0) 04/24/17 07:00 ESR 20 mm/hr (0.0-15.0) H 04/20/17 12:00 PT 11.9 SECONDS (9.4-12.5) 04/19/17 20:30 INR 1.04 (0.93-1.08) 04/19/17 20:30 APTT 27.0 Seconds (25.1-36.5) 04/19/17 20:30 pO2 50 mm/Hg (30-55) 04/20/17 06:10 VBG pH 7.29 (7.32-7.43) L 04/20/17 06:10 VBG pCO2 43.0 (40-60) 04/20/17 06:10 VBG HCO3 20.7 mmol/l (21-28) L 04/20/17 06:10 VBG Total CO2 22.0 mmol.L (22-28) 04/20/17 06:10 VBG O2 Sat (Calc) 92.2 % (40-65) H 04/20/17 06:10 VBG Base Excess -5.7 mmol/L (0.0-2.0) L 04/20/17 06:10 VBG Potassium 4.5 mmol/L (3.6-5.2) 04/20/17 06:10 Sodium 137.0 mmol/L (132-148) 04/20/17 06:10 Chloride 111.0 mmol/L (98-107) H 04/20/17 06:10 Glucose 277 mg/dl (75-110) H 04/20/17 06:10 Lactate 0.9 mmol/L (0.7-2.1) 04/20/17 06:10 FiO2 21.0 % 04/20/17 06:10 Sodium 138 mmol/L (132-148) 04/24/17 07:00 Potassium 3.4 mmol/L (3.6-5.0) L 04/24/17 07:00 Chloride 101 mmol/L (98-107) 04/24/17 07:00 Carbon Dioxide 33 mmol/L (21-33) 04/24/17 07:00 Anion Gap 8 (10-20) L 04/24/17 07:00 BUN 9 mg/dL (7-21) 04/24/17 07:00 Creatinine 0.7 mg/dl (0.8-1.5) L 04/24/17 07:00 Est GFR ( Amer) > 60 04/24/17 07:00 Est GFR (Non-Af Amer) > 60 04/24/17 07:00 POC Glucose (mg/dL) 233 mg/dL (65-110) H 04/24/17 07:59 Random Glucose 221 mg/dL (70-110) H 04/24/17 07:00 Hemoglobin A1c 8.2 % (4.2-6.5) H 04/20/17 06:30 Calcium 8.5 mg/dL (8.4-10.5) 04/24/17 07:00 Phosphorus 3.6 mg/dL (2.5-4.5) 04/24/17 07:00 Magnesium 1.8 mg/dL (1.7-2.2) 04/24/17 07:00 Iron 115 ug/dL (45-180) 04/20/17 18:24 TIBC 186 ug/dL (261-462) L 04/20/17 18:24 % Saturation 62 % (20-55) H 04/20/17 18:24 Ferritin 370.0 ng/mL 04/20/17 12:00 Total Bilirubin 0.1 mg/dL (0.2-1.3) L 04/24/17 07:00 AST 21 U/L (17-59) 04/24/17 07:00 ALT 29 U/L (7-56) 04/24/17 07:00 Alkaline Phosphatase 61 U/L (38-126) 04/24/17 07:00 Lactate Dehydrogenase 301 U/L (333-699) L 04/19/17 20:30 Total Creatine Kinase 38 U/L (35-230) 04/19/17 20:30 Troponin I < 0.01 ng/mL 04/19/17 20:30 C-React Prot High Sens > 15.00 mg/L (1.00-3.00) H 04/20/17 12:00 Total Protein 4.4 g/dL (5.8-8.3) L 04/24/17 07:00 Albumin 2.2 g/dL (3.0-4.8) L 04/24/17 07:00 Globulin 2.2 gm/dL 04/24/17 07:00 Albumin/Globulin Ratio 1.0 (1.1-1.8) L 04/24/17 07:00 Venous Blood Potassium 4.5 mmol/L (3.6-5.2) 04/20/17 06:10 Urine Color Light yellow (YELLOW) 04/20/17 06:00 Urine Appearance Clear (CLEAR) 04/20/17 06:00 Urine pH 5.5 (4.7-8.0) 04/20/17 06:00 Ur Specific [place] 1.010 (1.005-1.035) 04/20/17 06:00 Urine Protein Negative mg/dL (<30 mg/dL) 04/20/17 06:00 Urine Glucose (UA) >=1000 mg/dL (NEGATIVE) 04/20/17 06:00 Urine Ketones >=80 mg/dL (NEGATIVE) 04/20/17 06:00 Urine Blood Negative (NEGATIVE) 04/20/17 06:00 Urine Nitrate Negative (NEGATIVE) 04/20/17 06:00 Urine Bilirubin Negative (NEGATIVE) 04/20/17 06:00 Urine Urobilinogen 0.2 E.U./dL (<1 E.U./dL) 04/20/17 06:00 Ur Leukocyte Esterase Negative Abigail/uL (NEGATIVE) 04/20/17 06:00 Urine Opiates Screen Negative (NEGATIVE) 04/20/17 11:30 Urine Methadone Screen Negative (NEGATIVE) 04/20/17 11:30 Ur Barbiturates Screen Negative (NEGATIVE) 04/20/17 11:30 Ur Phencyclidine Scrn Negative (NEGATIVE) 04/20/17 11:30 Ur Amphetamines Screen Negative (NEGATIVE) 04/20/17 11:30 U Benzodiazepines Scrn Negative (NEGATIVE) 04/20/17 11:30 U Oth Cocaine Metabols Negative (NEGATIVE) 04/20/17 11:30 U Cannabinoids Screen Negative (NEGATIVE) 04/20/17 11:30 Alcohol, Quantitative < 10 mg/dL (0-10) 04/20/17 07:30 HIV 1&2 Ag/Ab, 4th Gen Nonreactive (Nonreactive) 04/20/17 06:30 Blood Type O NEGATIVE 04/23/17 11:15 Blood Type Confirm O NEGATIVE 04/19/17 20:48 Antibody Screen Negative 04/23/17 11:15 Crossmatch See Detail 04/23/17 11:15 BBK History Checked Patient has bt 04/23/17 11:15 - Hospital Course Hospital Course: HPI: Patient is a 41 year old male with past medical history of DM1, previous episodes of DKA, HTN, HLD, gastritis, recent dx of osteomyelitis and GI bleed who presents to ED via ambulance complaining of general weakness, fatigue, nausea, vomiting. Patient reports that over past 12 hours began experiencing nausea and vomiting. Patient describes vomiting/coughing up dark coffee ground like material. Of note patient was recently [place] [facility] [place] being treated for DKA, osteomyelitis, gastritis and GI bleed. While at [facility] had PICC line placed for OM of right foot and started on rocephin. Patient also reports having upper endoscopy showing mass? and striations or markings in the esophagus. Patient denies further workup. Patient denies sick contacts, denies fever, chest pain, shortness of breath, abdominal pain, numbness, weakness. Patient reports poor oral intake since discharge from [facility] [place]. Patient reports compliance with insulin regiment and medications since discharge. Of note patient indicates constipation for past 10 days with recent bowel movement in past 24 hours described as black stool. Patient was in ICU for DKA, gap closed, patient was given fluids, patient brought to floor, was seen by ID consult for recent diagnosis of osteomyelitis of right foot. Patient currently on antibiotics. GI consult for coffee ground emesis. Patient had blood transfusions and tolerated procedure well. Patient seen and examined at bedside. Patient tolerated 1uPRBC blood transfusion. Overnight, patient had high glucose reading in 400s. Patient was given insulin and glucose was rechecked to be 200s. Patient denies fever, chills , nausea, vomiting, diarrhea, constipation, dizziness, abdominal pain. Patient also had CT abdomen with po contrast per GI recommendations, which was negative for notable masses per radiologist. - Date & Time of H&P Date of H&P: 04/24/17 Time of H&P: 10:31 Discharge Exam - Head Exam Head Exam: ATRAUMATIC, NORMAL INSPECTION, NORMOCEPHALIC - Eye Exam Eye Exam: EOMI, Normal appearance Pupil Exam: NORMAL ACCOMODATION - ENT Exam ENT Exam: Mucous Membranes Moist - Neck Exam Neck exam: Full Rom - Respiratory Exam Respiratory Exam: NORMAL BREATHING PATTERN. absent: Accessory Muscle Use - Cardiovascular Exam Cardiovascular Exam: REGULAR RHYTHM, +S1, +S2 - GI/Abdominal Exam GI & Abdominal Exam: Firm, Normal Bowel Sounds. absent: Guarding, Hernia, Unremarkable - Extremities Exam Extremities exam: full ROM Additional comments: right foot wound no changes, no worsening erythema or drainage - Back Exam Back exam: FULL ROM - Neurological Exam Neurological exam: CN II-XII Intact, Oriented x3 - Psychiatric Exam Psychiatric exam: Normal Affect, Normal Mood - Skin Skin Exam: Dry, Pallor, Warm Discharge Plan - Follow Up Plan Condition: IMPROVED Disposition: HOME/ ROUTINE Additional Instructions: continue home medication follow up with primary care doctor in one week for further recommendations to adjust medications follow up with gi in one week for further evaluation of anemia Referrals: Maisha Bonilla MD [Primary Care Provider] -
[2017-04-24 10:58] VITALS: PULSE 84
== END 2017-04-24 13:46 | disposition home or self-care (01) | DRG 566 ==
LOC: ED 19:27 → ERH 21:01 → ICU 04-20 00:03 → 3RNO 04-21 13:24
PROVIDERS: ADMIT Hospitalist; ATTEND Internal Medicine
PROC: 30233N1 Transfusion of Nonautologous Red Blood Cells into Peripheral Vein, Percutaneous Approach (ICD-10-PCS; principal; 2017-04-19)
DX: E10.10 Type 1 diabetes mellitus with ketoacidosis without coma (principal); N17.9 Acute kidney failure, unspecified; K92.0 Hematemesis; E10.621 Type 1 diabetes mellitus with foot ulcer; E87.5 Hyperkalemia; E10.69 Type 1 diabetes mellitus with other specified complication; D62 Acute posthemorrhagic anemia; E86.0 Dehydration; E87.1 Hypo-osmolality and hyponatremia; F14.90 Cocaine use, unspecified, uncomplicated; E87.6 Hypokalemia; L97.519 Non-pressure chronic ulcer of other part of right foot with unspecified severity; M86.8X7 Other osteomyelitis, ankle and foot; F12.90 Cannabis use, unspecified, uncomplicated; H40.9 Unspecified glaucoma; I10 Essential (primary) hypertension; E78.5 Hyperlipidemia, unspecified; K29.60 Other gastritis without bleeding; E10.40 Type 1 diabetes mellitus with diabetic neuropathy, unspecified; E10.610 Type 1 diabetes mellitus with diabetic neuropathic arthropathy; M14.679 Charcot's joint, unspecified ankle and foot; K22.10 Ulcer of esophagus without bleeding; E10.43 Type 1 diabetes mellitus with diabetic autonomic (poly)neuropathy; K31.84 Gastroparesis; Z79.4 Long term (current) use of insulin; Z87.891 Personal history of nicotine dependence